=== PATIENT | female | born 1955 | race Two or more races ===

== ENCOUNTER 2023-09-01 08:57 | Outpatient (OUT) | payer MEDICARE, SELFPAY ==
--- NOTE | 2023-09-01 09:02 | MM_ITS ---
Patient Name: ANTOINE MTZ MR#: [id number] : 1955 Exam Date: 09/01/2023 Ordering Doctor: Non-Staff Physician RADIOLOGY REPORT PROCEDURE: MM TOMOSYNTHESIS SCREENING BI COMPARISON: MG MAMM SCREEN 3D JENNY CAD, 08/22/2021. MG MAMM SCREEN 3D JENNY CAD, 08/25/2022. INDICATIONS: Screening Calculator Name NCI Breast Cancer Risk Assessment Tool 5 Year Breast Cancer Risk 2.40% Lifetime Breast Cancer Risk 7.20% Personal Breast Cancer No Personal Ovarian Cancer No Treatments None Family Cancers Sister with breast cancer at age 38; Mother with ovarian cancer at age ~75. LOCATION: [facility] BREAST COMPOSITION: Scattered areas fibroglandular density. FINDINGS: DIAGNOSTIC CATEGORY 2--BENIGN FINDING. NO CHANGE FROM COMPARISON. Scattered benign-appearing nodules are present. Scattered benign-appearing calcifications are present. Scattered benign-appearing lymph nodes are present. RIGHT BREAST: No significant suspicious finding. Stable cluster of microcalcifications lower inner quadrant, right mid breast LEFT BREAST: No significant suspicious finding. RECOMMENDATIONS: ROUTINE MAMMOGRAM AND CLINICAL EVALUATION IN 12 MONTHS. PLEASE NOTE: A NORMAL MAMMOGRAM DOES NOT EXCLUDE THE POSSIBILITY OF BREAST CANCER. A CLINICALLY SUSPICIOUS PALPABLE LUMP SHOULD BE BIOPSIED. Dictated by: Joshua Zavala MD on 09/02/2023 at 07:44 Approved by: Joshua Zavala MD on 09/02/2023 at 07:46
== END 2023-09-01 08:58 | disposition home or self-care (01) ==
LOC: MAMMO 08:57
PROVIDERS: PCP Family Medicine
DX: Z12.31 Encounter for screening mammogram for malignant neoplasm of breast (principal); Z80.3 Family history of malignant neoplasm of breast; Z80.41 Family history of malignant neoplasm of ovary
CPT/HCPCS: 77063; 77067

== ENCOUNTER 2024-02-08 07:04 | Outpatient (OUT) | payer MEDICARE, SELFPAY ==
--- OUTSIDE RECORDS SUMMARY | 2024-02-08 07:08 | XMS_ITS | CCD ---
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 Name Role Phone MARCIA, DR TESS Higgins Admitting Unavailable KENNEDY, DR TESS Higgins Primary Care Unavailable KENNEDY, DR TESS Higgins Attending Unavailable KENNEDY, DR TESS Higgins Primary Care Unavailable REQUEST, DR TRIPP LISTED Admitting Unavaila ble REQUEST, DR TRIPP LISTED Attending Unavaila ble KENNEDY, DR TESS Higgins Admitting Unavailable KENNEDY, DR TESS Higgins Primary Care Unavailable [facility], DR DOMINGA Junior Consulting Unavailable KENNEDY, DR TESS Higgins Attending Unavailable KENNEDY, DR TESS Higgins Consulting Unavailable KENNEDY, DR TESS Higgins Primary Care Unavailable [facility], DR REMBERTO Sullivan Consulting Unavailable MISC, DR SARMIENTO Admitting Unavailable MISC, DR SARMIENTO Attending Unavailable MISC, DR SARMIENTO Consulting Unavailable KENNEDY, DR TESS Higgins Admitting Unavailable WEST, DR REMBERTO Sullivan Consulting Unavailable KENNEDY, DR TESS Higgins Primary Care Unavailable KENNEDY, DR TESS Higgins Attending Unavailable KENNEDY, DR TESS Higgins Consulting Unavailable Medications Current Medications Medication Drug Class(es) Dates Sig (Normalized) Sig (Original) alendronic acid 70 mg oral tablet (1 source) Bisphosphonate Start: 02-02-2024 take 1 tablet by mouth every week Alendronate Active MG PO February 02, 2024 12:00am FreeTextSig: TAKE 1 TABLET ONCE A WEEK; Note: Source Status: Start; Refills: 3; Qty: 12 Tablet; Provider: Marcia Pulido ( ) Completed/Discontinued Medications Medication Drug Class(es) Dates Sig (Normalized) Sig (Original) cyclobenzaprine hydrochloride 10 mg oral tablet (1 source) Muscle Relaxant Start: 02-02-2024 End: 02-03-2024 take 1 tablet by mouth three times daily as needed Cyclobenzaprine Discontinued 1 TAB PO Three times daily February 02, 2024 12:00am February 03, 2024 9:45am FreeTextSi tablet as needed Orally Three times a day; Note: Source Status: Not-Taking\PRN; Refills: 0; Qty: 21 Tablet; Provider: Pravin Cordero Problems Active Problems Problem Classification Problem Date Documented Da te Episodic/Chronic Essential hypertension (2 sources) Hypertensive disorder; Translations: [Essential (primary) hypertension] 02-03-2024 Chronic Osteoporosis (2 sources) Osteoporosis; Translations: [Age-related osteoporosis without current pathological fracture] 02-03-2024 Chronic Other circulatory disease (1 source) Carotid bruit; Translations: [Other specified symptoms and signs involving the circulatory and respiratory systems] 02-03-2024 Episodic Other circulatory disease (1 source) Other specified symptoms and signs involving the circulatory and respiratory systems; Translations: [Other symptoms involving cardiovascular system] 02-03-2024 Episodic Retinal detachments; defects; vascular occlusion; and retinopathy (2 sources) Retinal disorder; 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 Chronic Viral infection (2 sources) Postherpetic neuralgia; Translations: [Other postherpetic nervous system involvement] 02-03-2024 Episodic Past or Other Problems Problem Classification Problem Date Documented Date Episodic/Chronic Other lower respiratory disease (4 sources) Other forms of dyspnea; Translations: [OTHER FORMS OF DYSPNEA] Onset: 07-02-2022 Episodic Other screening for suspected conditions (not mental disorders or infectious disease) (8 sources) Encounter for screening mammogram for malignant neoplasm of breast; Translations: [Abnormal electrocardiogram [ECG] [EKG]] Onset: 07-31-2022 Episodic Residual codes; unclassified (1 source) Family history of malignant neoplasm of breast; Translations: [FAMILY HX MALIG NEOPLASM OF BREAST] Onset: 08-30-2022 Episodic Residual codes; unclassified (1 source) Family history of malignant neoplasm of ovary; Translations: [FAM HX MALIGNANT NEOPLASM OVARY] Onset: 08-30-2022 Episodic Results Test Name Value Interpretation Reference Range Facil ity CBC AUTO DIFFon 03-02-2023 BASO # 0.0 103/ul Normal 0.0-0.[address] [facility] Comment on above: Performed By: #### D ATCBC #### [facility] [address] [place] [address] Dr. Gemma Sanchez Basophils/100 WBC (Bld) 0.6 % Normal 0.2-2.[address] [facility] Comment on above: Performed By: #### D ATCBC #### [facility] [address] [place] [address] Dr. Gemma Sanchez EO # 0.2 103/ul Normal 0.0-0.[address] [facility] Comment on above: Performed By: #### D ATCBC #### [facility] [address] [place] [address] Dr. Gemma Sanchez Eosinophils/100 WBC (Bld) 3.7 % Normal 0.9-7.[address] [facility] Comment on above: Performed By: #### D ATCBC #### [facility] [address] [place] [address] Dr. Gemma Sanchez Erythrocyte distribution width (RBC) [Ratio] 12.5 % Normal 11.0-15.[address] [facility] Comment on above: Performed By: #### D ATCBC #### [facility] [address] [place] [address] Dr. Gemma Sanchez Hematocrit (Bld) [Volume fraction] 41.7 % Normal 36.0-48.[address] [facility] Comment on above: Performed By: #### D ATCBC #### [facility] [address] [place] [address] Dr. Gemma Sanchez Hemoglobin (Bld) [Mass/Vol] 14.1 g/dL Normal 12.0-16.[address] [facility] Comment on above: Performed By: #### D ATCBC #### [facility] [address] [place] [address] Dr. Gemma Sanchez IG # 0.02 10e3/ul Normal 0.00-0.[address] [facility] Comment on above: Performed By: #### D ATCBC #### [facility] [address] [place] [address] Dr. Gemma Sanchez IG % 0.4 % Normal 0.0-0.[address] [facility] Comment on above: Performed By: #### D ATCBC #### [facility] [address] [place] [address] Dr. Gemma Sanchez LYMPH # 1.3 103/ul Normal 1.2-3.8 [facility] Comment on above: Performed By: #### D ATCBC #### [facility] [address] [place] [address] Dr. Gemma Sanchez Lymphocytes/100 WBC (Bld) 23.9 % Normal 20.5-60.[address] [facility] Comment on above: Performed By: #### D ATCBC #### [facility] [address] [place] [address] Dr. Gemma Sanchez MCH (RBC) [Entitic mass] 31.5 pg Normal 26.7-34.0 [facility] Comment on above: Performed By: #### D ATCBC #### [facility] [address] [place] [address] Dr. Gemma Sanchez MCHC (RBC) [Mass/Vol] 33.8 g/dL Normal 29.9-35.2 [facility] Comment on above: Performed By: #### D ATCBC #### [facility] [address] [place] [address] Dr. Gemma Sanchez MCV (RBC) [Entitic vol] 93.1 fL Normal 81.0-99.0 [facility] Comment on above: Performed By: #### D ATCBC #### [facility] [address] [place] [address] Dr. Gemma Sanchez MONO # 0.3 103/ul Normal 0.3-0.8 [facility] Comment on above: Performed By: #### D ATCBC #### [facility] [address] [place] [address] Dr. Gemma Sanchez Monocytes/100 WBC (Bld) 6.2 % Normal 1.7-12.0 [facility] Comment on above: Performed By: #### D ATCBC #### [facility] [address] [place] [address] Dr. Gemma Sanchez NEUT # 3.5 103/ul Normal 1.4-6.5 [facility] Comment on above: Performed By: #### D ATCBC #### [facility] [address] [place] [address] Dr. Gemma Sanchez Neutrophils/100 WBC (Bld) 65.2 % Normal 43.0-75.[address] [facility] Comment on above: Performed By: #### D ATCBC #### [facility] [address] [place] [address] Dr. Gemma Sanchez Platelet mean volume (Bld) [Entitic vol] 8.9 fL Critically low 9.5-13.[address] [facility] Comment on above: Performed By: #### D ATCBC #### [facility] [address] [place] [address] Dr. Gemma Sanchez PLT 245 103/ul Normal 150-[address] [facility] Comment on above: Performed By: #### D ATCBC #### [facility] [address] [place] [address] Dr. Gemma Sanchez RBC 4.48 106/ul Normal 4.20-5.[address] [facility] Comment on above: Performed By: #### D ATCBC #### [facility] [address] [place] [address] Dr. Gemma Sanchez WBC 5.4 103/ul Normal 4.0-11.[address] [facility] Comment on above: Performed By: #### D ATCBC #### [facility] [address] [place] [address] Dr. Gemma Sanchez BUTCH- BMP WITH LIPIDon 2022 Anion gap [Moles/Vol] 14.7 mmol/L Normal [facility] Comment on above: Performed By: #### D ATBMP #### [facility] [address] [place] [address] Dr. Gemma Sanchez Calcium [Mass/Vol] 8.6 mg/dL Normal 8.5-10.1 [facility] Comment on above: Performed By: #### D ATBMP #### [facility] [address] [place] [address] Dr. Gemma Sanchez Chloride [Moles/Vol] 106 mmol/L Normal 98-[address] [facility] Comment on above: Performed By: #### D ATBMP #### [facility] [address] [place] [address] Dr. Gemma Sanchez Cholesterol [Mass/Vol] 207 mg/dL Critically high <=[address] [facility] Comment on above: Performed By: #### D ATBMP #### [facility] [address] [address] [address] Gemma Sanchez Cholesterol in HDL [Mass/Vol] 66 mg/dL Critically high 40-[address] [facility] Comment on above: Performed By: #### D ATBMP #### [facility] [address] [address] [address] Gemma Sanchez Cholesterol in LDL [Mass/Vol] 119.2 mg/dL Normal [facility] Comment on above: Performed By: #### D ATBMP #### [facility] [address] [address] [address] Gemma Sanchez CO2 [Moles/Vol] 26.4 mmol/L Normal 21.0-32.0 [facility] Comment on above: Performed By: #### D ATBMP #### [facility] [address] [address] [address] Gemma Sanchez Creatinine [Mass/Vol] 0.75 mg/dL Normal 0.55-1.[address] [facility] Comment on above: Performed By: #### D ATBMP #### [facility] [address] [address] [address] Gemma Sanchez EGFR-AF BRUNEIAN >60 Normal >=60 [facility] Comment on above: Performed By: #### D ATBMP #### [facility] [address] [address] [address] Gemma Sanchez EGFR-NON AF BRUNEIAN >60 Normal >=[address] [facility] Comment on above: Performed By: #### D ATBMP #### [facility] [address] [address] [address] Gemma Sanchez Glucose [Mass/Vol] 98 mg/dL Normal 74-106 [facility] Comment on above: Performed By: #### D ATBMP #### [facility] [address] [address] [address] Gemma Sanchez HDL NORMAL > or = 60 mg/dl - LO W CARDIOVASCULAR RISK <40 mg/dl - HIGH CARDIOVASCULAR RISK Normal [facility] Comment on above: Performed By: #### D ATBMP #### [facility] [address] [address] [address] Gemma Sanchez LDL CALC NORMAL SEE BELOW Normal [facility] Comment on above: Result Comment: <100 mg/dl OPTIMAL 100 - 129 mg/dl NEAR OR ABOVE OPTIMAL 130 - 159 mg/dl BORDERLINE HIGH 160 - 189 mg/dl HIGH >190 mg/dl VERY HIGH Performed By: #### D ATBMP #### [facility] [address] [address] [address] Gemma Sanchez Potassium [Moles/Vol] 4.1 mmol/L Normal 3.5-5.[address] [facility] Comment on above: Performed By: #### D ATBMP #### [facility] [address] [address] [address] Gemma Sanchez Sodium [Moles/Vol] 143 mmol/L Normal 136-145 [facility] Comment on above: Performed By: #### D ATBMP #### [facility] [address] [address] [address] Gemma Sanchez Triglyceride [Mass/Vol] 109 mg/dL Normal <=[address] [facility] Comment on above: Performed By: #### D ATBMP #### [facility] [address] [address] [address] Gemma Sanchez Urea nitrogen [Mass/Vol] 15.0 mg/dL Normal 7.0-18.[address] [facility] Comment on above: Performed By: #### D ATBMP #### [facility] [address] [address] [address] Gemma Sanchez Urea nitrogen/Creatinin e [Mass ratio] 20.0 mg/mg Normal [facility] Comment on above: Performed By: #### D ATBMP #### [facility] [address] [address] [address] Gemma Sanchez VLDL CALC 21.8 mg/dL Normal [facility] Comment on above: Performed By: #### D ATBMP #### [facility] [address] [place], [place] [address] Dr. Gemma Sanchez MG MAMM SCREEN 3D JENNY CADon 08-25-2022 MG MAMM SCREEN 3D JENNY CAD Patient: YULISA MTZ Exam Date: 08/25/2022 : 1955 Gender:F Ordering : CM PANTOJA Admission #: [id number] Family : Order #: [id number] CLICK HERE TO VIEW EXAM RADIOLOGY REPORT PROCEDURE: MAMMOGRAM SCREENING 3D BILATERAL CAD COMPARISON: MG MAMM SCREEN JENNY W CAD, 08/21/2020. MG MAMM SCREEN 3D JENNY CAD, 08/22/2021. INDICATIONS: Screening mammography Calculator Name NCI Breast Cancer Risk Assessment Tool 5 Year Breast Cancer Risk 2.30% Lifetime Breast Cancer Risk 7.60% Personal Breast Cancer No Personal Ovarian Cancer No Treatments None Family Cancers Sister with breast cancer at age 38; Mother with ovarian cancer at age 75. LOCATION: [facility] BREAST COMPOSITION: Scattered areas fibroglandular density. FINDINGS: DIAGNOSTIC CATEGORY 2--BENIGN FINDING. NO CHANGE FROM COMPARISON. Scattered benign-appearing calcifications are present. Scattered benign-appearing lymph nodes are present. RIGHT BREAST: No significant suspicious finding. LEFT BREAST: No significant suspicious finding. RECOMMENDATIONS: ROUTINE MAMMOGRAM AND CLINICAL EVALUATION IN 12 MONTHS. PLEASE NOTE: A NORMAL MAMMOGRAM DOES NOT EXCLUDE THE POSSIBILITY OF BREAST CANCER. A CLINICALLY SUSPICIOUS PALPABLE LUMP SHOULD BE BIOPSIED. Dictated by: Remberto Zavala MD on 08/25/2022 at 12:14 Approved by: Remberto Zavala MD on 08/25/2022 at 12:19 Normal [facility] ECHOCARDIO M/2D COMPLETEon 1 ECHOCARDIO M/2D COMPLETE Patient: YULISA MTZ Exam Date: 07/31/2022 : 1955 Gender:F Ordering : DR TESS KENNEDY M.D. Admission #: [id number] Family : Order #: [id number] CLICK HERE TO VIEW EXAM ECHOCARDIOGRAM REPORT PROCEDURE: CARDIO PULMONARY ECHOCARDIO M/2D COMP INDICATIONS: Abnormal EKG COMPARISON: None. DESCRIPTION: COMPLETE ECHOCARDIOGRAM Real-time transthoracic echocardiography with 2D, M-mode, spectral and color flow Doppler performed. QUALITY: Technical quality was good. LEFT VENTRICLE: Normal chamber size. Normal left ventricular wall thickness. Global left ventricular systolic function is normal. LV EF: Calculated left ventricular ejection fraction is 60% DIASTOLIC: Normal diastolic function. ATRIAL SEPTUM: LEFT ATRIUM: Normal chamber size. RIGHT ATRIUM: Normal chamber size. RIGHT VENTRICLE: Normal chamber size. Normal right ventricular systolic function. TRICUSPID VALVE: Normal mobility and thickness. No stenosis with trivial regurgitation. No evidence of pulmonary hypertension. RVSP is 33 mmHg MITRAL VALVE: Normal mobility and thickness. No mitral valve prolapse. No evidence of mitral valve stenosis. There is no mitral annular calcification. Trivial mitral regurgitation. AORTIC VALVE: Normal trileaflet appearance. No visible sclerosis. Normal leaflet mobility. No evidence of aortic valve stenosis. Trivial aortic regurgitation. AORTIC ROOT: Normal diameter and appearance. PULMONIC VALVE: Normal thickness and mobility. No stenosis. Trivial regurgitation. PERICARDIUM: No evidence of pericardial effusion. IVC: Collapses with inspirations. Normal size PLEURA: CONCLUSION: 1. Left ventricular systolic function is normal. LVEF is 60%. 2. Normal right ventricular size and systolic function. 3. Normal diastolic function. 4. No significant valvular dysfunction. 5. Normal right-sided pressures. Adult Echocardiography Procedure Report Left Ventricle LVEDD (3.7 - 5.6 cm): 3.72 cm LVESD (2.2 - 4.0 cm): 2.43 cm LVIVS thickness (0.6 - 1.2 cm): 0.84 cm LVPW thickness (0.5 - 1.0 cm): 0.80 cm e': 0.09 m/s E - e': 7.44 LVOT Max Gradient: 2.93 mm[Hg] Peak Velocity (LVOT): 0.86 m/s Mean Velocity (LVOT): 0.64 m/s LVOT Diameter 1.80 cm Left Ventricular Ejection Fraction: 60% Left Atrium LA Volume Index (2D A2C): 31.58 ml, 31.58 ml Left Atrium Systolic Dimension: 2.97 cm Mitral Valve MV E to A Ratio: 0.77 Mitral Valve A-Wave Peak Velocity: 0.87 m/s Mitral Valve E-Wave Peak Velocity: 0.67 m/s Right Ventricle RV Internal Diastolic Dimension: 3.17 cm Aorta AO Root Diam: 2.99 cm Ascending Ao Diam: 2.69 cm Aortic Valve AoV Area (Peak Malachi): 1.93 cm2, 1.93 cm2 AoV Area (VTI): 1.89 cm2, 1.89 cm2 Peak Velocity(Antegrade Flow): 1.12 m/s Peak Gradient(Antegrade Flow): 5.03 mm[Hg] Mean Velocity(Antegrade Flow): 0.75 m/s Mean Gradient(Antegrade Flow): 2.59 mm[Hg] Velocity Time Integral: 26.13 cm Tricuspid Valve Peak Velocity (Regurgitant Flow): 1.10 m/s, 1.83 m/s, 3.16 m/s, 2.75 m/s Peak Velocity: 0.62 m/s Pulmonic Valve Mean Gradient: 2.83 mm[Hg], 2.89 mm[Hg] Mean Velocity: 0.78 m/s, 0.79 m/s Peak Velocity: 1.15 m/s, 1.22 m/s Peak Gradient: 5.31 mm[Hg], 5.92 mm[Hg] Right Atrium Right Atrium Systolic Pressure: 37.25 ml, 37.25 ml Dictated by: Kyle Jack M.D. on 07/31/2022 at 20:43 Approved by: Kyle Jack M.D. on 07/31/2022 at 20:[address] [facility] NM STRESS/REST MULTIon 07-31 NM STRESS/REST MULTI Patient: YULISA MTZ Exam Date: 07/31/2022 : 1955 Gender:F Ordering : DR TESS KENNEDY M.D. Admission #: [id number] Family : Order #: [id number] CLICK HERE TO VIEW EXAM RADIOLOGY REPORT PROCEDURE: RADIONUCLIDE IMAGING STRESS/REST MULTI COMPARISON: None. INDICATIONS: Cardiovascular stress test abnormal TECHNIQUE: Exam Description: Stress/Rest one day protocol gated SPECT Rest Imagin.2 mCi Tc-99m Cardiolite IV on 07/31/2022 Stress Imaging 32.4 mCi Tc-99m Cardiolite IV on 07/31/2022 Exercise Protocol: 0.4 mg Lexiscan given IV Heart Rate (bpm): Rest: 59 Max: 100 PMHR: 65 Blood Pressure: Rest: 126/84 Max: 142/80 Symptoms: Rest and peak stress ECG findings were normal and the exercise portion of the study was normal per attending physician Dr. Albino Sung . For more details please see separate cardiac stress test report. FINDINGS: QUALITY OF STUDY: Good. PERFUSION DEFECT: None. LOCATION: N/A SIZE: N/A. SEVERITY: N/A. TYPE: N/A. WALL MOTION: Normal. LV SIZE: Normal. 48 mL. TID / TCD: None; .88 LVEF: Normal. Calculated EF 80%. SUMMARY: Myocardial perfusion imaging study is NORMAL. CONCLUSION: 1. Normal myocardial perfusion scan 2. Normal exercise test Dictated by: Remberto Zavala MD on 07/31/2022 at 14:39 Approved by: Remberto Zavala MD on 07/31/2022 at 14:[address] [facility] Vital Signs Date Time Vital Sign Value Performing Clinician Faci lity 02-03-2024 09:32-0400 Body height 149.[address] [facility] 02-03-2024 09:32-0400 Body mass index (BMI) [Ratio] 31.7 kg/m2 [facility] 02-03-2024 09:32-0400 Body weight 71.[address] [facility] 02-03-2024 09:32-0400 Diastolic blood pressure 72 mm[Hg] [facility] 02-03-2024 09:32-0400 Heart rate 76 /min [facility] 02-03-2024 09:32-0400 Systolic blood pressure 132 mm[Hg] [facility] Encounters Encounter Date Encounter Type Care Provider Facility Start: 02-03-2024 End: 02-03-2024 ambulatory [facility] Work Phone: Start: 02-03-2024 End: 02-03-2024 Patient encounter procedure [facility] Work Phone: Start: 03-02-2023 End: 03-03-[address] TESS KENNEDY Facility:[facility] Start: 08-25-2022 End: 08-26-[address] TESS KENNEDY Facility:[facility] Start: 07-31-2022 End: 08-01-[address] TESS KENNEDY Facility:[facility] Start: 07-02-2022 End: 07-03-[address] TESS KENNEDY Facility:[facility] Plan of Treatment Date Care Activity Detail Author Comprehensive metabo lic 2000 panel - Serum or Plasma [facility] enter DXA Skeletal system. axial Views for bone density [facility] enter US.doppler Carotid arteries - bilateral [facility] Payers Date Payer Category Payer Medicare [id number] 1960 Self-pay [id number] 1955 Unknown [id number] 1955 Unknown [id number] 1955 Unknown [id number] 1955 Unknown [id number] Private Health Insurance [employer] [id number] Self-pay Self Pay [id number] Unknown [id number] Social History Date Type Detail Facility Start: 01-28-2024 Tobacco smoking stat [facility] Never smoked tobacco (finding) [facility] Start: 1955 Sex Assigned At Female F [facility] Clinical Note 03-02-2023 Note Date & Type Note Facility 03-02-2023 Note PROCEDURE: XR SHOULD ER RT 2V or > HISTORY: Pain of right shoulder joint COMPARISON: None. FINDINGS: BONES:Mild degenerative changes of the acromioclavicular joint. Unremarkable humeral head and glenohumeral joint. SOFT TISSUES:No visible soft tissue swelling. EFFUSION:None visible. OTHER: Negative. IMPRESSION: 1. No acute bone abnormality. 2. Mild degenerative changes of the acromioclavicular joint. Electronically authenticated by: DOMINGA HERNANDES Date: 2023-03-02 07:[address] [facility] Evaluation note Note Date & Type Note Facility Evaluation note Diagnosis Onset Date Carotid bruit acute Hypertension acute Osteoporosis acute Post herpetic neuralgia acut e Retinopathy acute [facility] Work Phone: Summary Purpose Family History Relationship Condition Age at Onset Recorded Date/T emily brother Unknown father Heart disease Unknown Unknown Not Specified Unknown Malignant neoplasm Unknown History of ovarian cancer Unknown sister Malignant neoplasm Unknown Advance Directives Advance Directive Response Recorded Date/ Time Advance Directives No October 22, 2018 9:59am Chief Complaint and Reason for Visit Chief Complaint bp / bs check Reason for Visit Carotid bruit Hypertension Osteoporosis Post herpetic neuralgia Retinopathy Additional Source Comments INFORMATION SOURCE (unrecogn ized section and content) DATE CREATED AUTHOR 03/03/2023 [facility] Care Teams (unrecognized sec tion and content) Team Status: Active Member Role Status Dates Tess Kennedy MD Primary Care Provider Active Team Status: Inactive Member Role Status Dates Tess Kennedy MD Primary Care Provide r, Attending Provider Active Start: February 03, 2024 End: February 03, 2024 Goals (unrecognized section and content) Goals may be documented in a n alternate section FOR RECORDS PERTAINING TO PATIENTS WHO ARE OR HAVE BEEN ENROLLED IN A CHEMICAL DEPENDENCY/SUBSTANCEABUSE PROGRAM, SOME INFORMATION MAY BE OMITTED. This clinical summary was aggregated from multiple sources. Caution should be exercised in using it in the provision of clinical care. This summary normalizes information from multiple sources, and as a consequence, information in this document may materially change the coding, format and clinical context of patient data. In addition, data may be omitted in some cases. CLINICAL DECISIONS SHOULD BE BASED ON THE PRIMARY CLINICAL RECORDS. [employer] provides no warranty or guarantee of the accuracy or completeness of information in this document.
--- NOTE | 2024-02-08 07:14 | US_ITS ---
[address] [address] Patient Name: ANTOINE MTZ MRN: [id number] date: 1955 Sex: F Assigned Patient Location: Current Patient Location: US Accession/Order Number: [id number] Exam Date: 02/08/2024 07:15 Report Date: 02/08/2024 09:20 At the request of: YANIRA MOORE Procedure: US carotid duplex BI EXAMINATION: US carotid duplex BI HISTORY: Carotid Bruit, Retinopathy COMPARISON: No relevant comparison available. TECHNIQUE: Duplex Doppler ultrasound analysis of carotid and vertebral arteries. . Bilateral carotid arterial duplex examination was performed using B-mode, color flow and spectral analysis. Carotid stenosis is reported according to validated velocity parameters, similar to NASCET criteria. FINDINGS: RIGHT CAROTID ARTERY No atherosclerotic plaque Subclavian: PSV: 73.6 cm/s cm/s EDV: 0.0 cm/s cm/s CCA: Prox: PSV: 76.2 cm/s cm/s EDV: 18.0 cm/s cm/s Mid: PSV: 58.1 cm/s cm/s EDV: 14.2 cm/s cm/s Distal: PSV: 59.2 cm/s cm/s EDV: 13.1 cm/s cm/s BULB: PSV: 41.8 cm/s cm/s EDV: 10.4 cm/s cm/s ICA: Prox: PSV: 49.6 cm/s cm/s EDV: 19.1 cm/s cm/s Mid: PSV: 60.3 cm/s cm/s EDV: 24.1 cm/s cm/s Distal: PSV: 79.0 cm/s cm/s EDV: 26.3 cm/s cm/s ECA: PSV: 80.1 cm/s cm/s EDV: 8.7 cm/s cm/s VERTEBRAL: PSV: 54.8 cm/s cm/s EDV: 15.3 cm/s cm/s ICA/CCA ratio: PSV: 1.3 EDV: 2.0 LEFT CAROTID ARTERY no atherosclerotic plaque Subclavian: PSV: 124.0 cm/s cm/s EDV: 0.0 cm/s CCA: Prox: PSV: 64.7 cm/s cm/s EDV: 17.5 cm/s Mid: PSV: 74.6 cm/s cm/s EDV: 20.8 cm/s Distal: PSV: 73.5 cm/s cm/s EDV: 20.8 cm/s BULB: PSV: 55.9 cm/s cm/s EDV: 17.5 cm/s ICA: Prox: PSV: 57.0 cm/s cm/s EDV: 25.2 cm/s Mid: PSV: 106.0 cm/s cm/s EDV: 34.8 cm/s Distal: PSV: 98.4 cm/s cm/s EDV: 32.1 cm/s ECA: PSV: 54.0 cm/s cm/s EDV: 9.5 cm/s VERTEBRAL: PSV: 74.1 cm/s cm/s EDV: 21.7 cm/s ICA/CCA ratio: PSV: 1.4 EDV: 1.7 US/US carotid duplex BI IMPRESSION: 0-49% flow stenosis bilateral internal carotid arteries Spectral Doppler US Thresholds (Reference: Guero EG, et al. Radiology 2000; 214:247-252) Stenosis (%) PSV (cm/sec) VICA/VCCA 0-49 <150 <2.5 50-69 150-225 2.5-4.0 >70 >225 >4.0 Electronically authenticated by: REMBERTO BOTELLO Date: 02/08/2024 09:20
--- NOTE | 2024-02-08 07:14 | XR_ITS ---
[address] [address] Patient Name: ANTOINE MTZ MRN: [id number] date: 1955 Sex: F Assigned Patient Location: Current Patient Location: US Accession/Order Number: [id number] Exam Date: 02/08/2024 07:45 Report Date: 02/08/2024 09:31 At the request of: YANIRA MOORE Procedure: XR DEXA axial skeleton EXAMINATION: XR DEXA axial skeleton, 02/08/2024 7:45 AM EDT HISTORY: Osteoporosis COMPARISON: 2017 TECHNIQUE: Dual-energy X-ray absorptiometry (DEXA) bone density study performed for the axial skeleton. HISTORY: Osteoporosis FINDINGS: Bone mineral density AP spine L1-L4 measures 1.085 g/sq cm. T score -0.8. WHO classification: Normal. Bone mineral density bilateral total femurs measures 0.989 g/sq cm. 3.2% reduction from the prior exam, physiologic. T score -0.1. WHO classification: Normal XR/XR DEXA axial skeleton IMPRESSION: Normal bone mineral density. Low fracture risk Electronically authenticated by: REMBERTO BOTELLO Date: 02/08/2024 09:31
[2024-02-08 07:27] LABS: Basophils Absolute Auto 0.1 10^3/uL (0.0-0.1); Basophils Percent Auto 1.3 % (0.2-2.0); Eosinophils Absolute Auto 0.2 10^3/uL (0.0-0.7); Eosinophils Percent Auto 3.7 % (0.9-7.0); Hematocrit 44.3 % (36.0-48.0); Hemoglobin 14.7 g/dL (12.0-16.0); Immature Granulocytes Abs Auto 0.02 10^3/uL (0.00-0.03); Immature Granulocytes Pct Auto 0.4 % (0.0-0.5); Lymphocytes Absolute Auto 1.8 10^3/uL (1.2-3.8); Lymphocytes Percent Auto 33.5 % (20.5-60.0); Mean Corpuscular HGB Conc 33.2 g/dL (29.9-35.2); Mean Corpuscular Hemoglobin 30.7 pg (26.7-34.0); Mean Corpuscular Volume 92.5 fL (81.0-99.0); Mean Platelet Volume 9.2 fL (9.5-13.5); Monocytes Absolute Auto 0.4 10^3/uL (0.3-0.8); Monocytes Percent Auto 7.7 % (1.7-12.0); Neutrophils Absolute Auto 2.9 10^3/uL (1.4-6.5); Neutrophils Percent Auto 53.4 % (43.0-75.0); Platelet Count 278 10^3/uL (150-450); Red Blood Count 4.79 10^6/uL (4.20-5.40); Red Cell Distribution Width 12.1 % (11.0-15.0); White Blood Count 5.4 10^3/uL (4.0-11.0)
[2024-02-08 08:19] LABS: Estimated Average Glucose 105 mg/dL; Glycohemoglobin A1C 5.3 % (4.5-6.2)
[2024-02-08 08:31] LABS: Alanine Aminotransferase 23 U/L (14-59); Albumin Globulin Ratio 0.9; Albumin Level 3.7 g/dL (3.4-5.0); Alkaline Phosphatase 65 U/L (46-116); Anion Gap 9.7; Aspartate Amino Transferase 21 U/L (15-37); Calcium 9.5 mg/dL (8.5-10.1); Chloride 105 mmol/L (98-107); Chol HDL Ratio 2.9; Cholesterol 244 mg/dL (<=200); Estimated GFR (African America >60 (>=60); Estimated GFR (Non-African Ame >60 (>=60); Globulin 4.1 g/dL; Glucose 96 mg/dL (74-106); HDL Cholesterol 83 mg/dL (40-60); Potassium 3.7 mmol/L (3.5-5.1); Sodium 142 mmol/L (136-145); Total Protein 7.8 g/dL (6.4-8.2); Triglycerides 124 mg/dL (<=150); VLDL CHOLESTEROL 24.8 mg/dL
== END 2024-02-08 07:05 | disposition home or self-care (01) ==
LOC: US 07:04
PROVIDERS: PCP Family Medicine; Visit Provider Family Medicine
DX: M81.0 Age-related osteoporosis without current pathological fracture (principal); H35.00 Unspecified background retinopathy; R09.89 Other specified symptoms and signs involving the circulatory and respiratory systems; I10 Essential (primary) hypertension
CPT/HCPCS: 36415; 77080; 80053; 80061; 83036; 85025; 93880

== ENCOUNTER 2024-09-06 08:27 | Outpatient (OUT) | payer MEDICARE, SELFPAY ==
--- NOTE | 2024-09-06 08:30 | MM_ITS ---
Patient Name: ANTOINE MTZ MR#: [id number] : 1955 Exam Date: 09/06/2024 Ordering Doctor: DR Tess Kennedy M.D. RADIOLOGY REPORT PROCEDURE: MM TOMOSYNTHESIS SCREENING BI COMPARISON: MM TOMOSYNTHESIS SCREENING BI, 09/01/2023. MG MAMM SCREEN 3D JENNY CAD, 08/25/2022. MG MAMM SCREEN 3D JENNY CAD, 08/22/2021. MG MAMM JENNY SCRN W CAD DIG, 05/05/2015. INDICATIONS: Screening Calculator Name NCI Breast Cancer Risk Assessment Tool 5 Year Breast Cancer Risk 2.40% Lifetime Breast Cancer Risk 6.90% Personal Breast Cancer No Personal Ovarian Cancer No Treatments None Family Cancers Sister with breast cancer at age 38; Mother with ovarian cancer at age ~75. LOCATION: [facility] BREAST COMPOSITION: There are scattered areas of fibroglandular density. FINDINGS: DIAGNOSTIC CATEGORY 2--BENIGN FINDING: RIGHT BREAST: No significant suspicious finding. Stable collection of benign-appearing calcifications within upper inner quadrant. Stable biopsy marker clip within upper-outer quadrant. No significant change has occurred. LEFT BREAST: No significant suspicious finding. No significant change has occurred. RECOMMENDATIONS: ROUTINE MAMMOGRAM AND CLINICAL EVALUATION IN 12 MONTHS. PLEASE NOTE: A NORMAL MAMMOGRAM DOES NOT EXCLUDE THE POSSIBILITY OF BREAST CANCER. A CLINICALLY SUSPICIOUS PALPABLE LUMP SHOULD BE BIOPSIED. Dictated by: Bradford Barahona M.D. on 09/06/2024 at 09:32 Approved by: Bradford Barahona M.D. on 09/06/2024 at 09:36
== END 2024-09-06 08:28 | disposition home or self-care (01) ==
LOC: MAMMO 08:27
PROVIDERS: PCP Family Medicine; Visit Provider Family Medicine
DX: Z12.31 Encounter for screening mammogram for malignant neoplasm of breast (principal); Z80.3 Family history of malignant neoplasm of breast; Z80.41 Family history of malignant neoplasm of ovary
CPT/HCPCS: 77063; 77067

== ENCOUNTER 2024-12-28 07:07 | Outpatient (OUT) | payer MEDICARE, SELFPAY ==
--- NOTE | 2024-12-28 | US_ITS ---
The [address] [address] Patient Name: ANTOINE MTZ MRN: [id number] date: 1955 Sex: F Assigned Patient Location: US Current Patient Location: US Accession/Order Number: [id number] Exam Date: 12/28/2024 07:35 Report Date: 12/28/2024 07:37 At the request of: XU PEREZ Procedure: US renal BI BILATERAL RENAL AND BLADDER ULTRASOUND CLINICAL HISTORY: Recurrent UTI N39.0 COMPARISON: None Estimation of renal size is approximately 8.6 cm on the right and 10.4 cm on the left. No shadowing calculi or hydronephrosis are identified. No renal mass lesions were imaged. There is no perinephric fluid. The urinary bladder is partially distended with a volume of 120 mL l. No contour or intraluminal abnormalities are seen. US/US renal BI IMPRESSION: NO OBSTRUCTIVE UROPATHY. Impression dictated by: Marysol Ware M.D.12/28/2024 7:37 AM Dictation Location: [place] [address] Electronically authenticated by: [id number] Y Date: 12/28/2024 07:37
--- OUTSIDE RECORDS SUMMARY | 2024-12-28 07:09 | XMS_ITS | CCD ---
Author Organization [facility] Care Team Providers Care Health Claims Examiner Name Role Phone OSCAR, DR TESS Higgins Admitting Unavailable MOORE, DR TESS Higgins Primary Care Unavailable MOORE, DR TESS Higgins Attending Unavailable MOORE, DR TESS Higgins Primary Care Unavailable REQUEST, DR TRIPP LISTED Admitting Unavaila ble REQUEST, DR TRIPP LISTED Attending Unavaila ble MOORE, DR TESS Higgins Admitting Unavailable MOORE, DR TESS Higgins Primary Care Unavailable ZIEBER, DR DOMINGA Junior Consulting Unavailable MOORE, DR TESS Higgins Attending Unavailable MOORE, DR TESS Higgins Consulting Unavailable MOORE, DR TESS Higgins Primary Care Unavailable WEST, DR REMBERTO Sullivan Consulting Unavailable MISC, DR SARMIENTO Admitting Unavailable MISC, DR SARMIENTO Attending Unavailable MISC, DR SARMIENTO Consulting Unavailable MOORE, DR TESS Higgins Admitting Unavailable WEST, DR REMBERTO Sullivan Consulting Unavailable MOORE, DR TESS Higgins Primary Care Unavailable MOORE, DR TESS Higgins Attending Unavailable MOORE, DR TESS Higgins Consulting Unavailable MOORETESS Primary Care Physician Mandi Patton Attending Unavailable Mandi Patton Admitting Unavailable Galea, Mandi Live Attending Unavailable Galea, Mandi Live Attending Unavailable Galea, Mandi Live Attending Unavailable GalMandi sparks Admitting Unavailable XU MABRY Attending Unavailable XU MABRY Admitting Unavailable XU MABRY Attending Unavailable XU MABRY Attending Unavailable XU MABRY Attending Unavailable XU MABRY Admitting Unavailable Allergies Allergy Classification Reported Allergen(s) Allergy Type Date of Onset Reaction(s) Facility (4 sources) No Known Medication Allergies; Translations: [No Known Medication Allergies] Propensity to adverse reactions (disorder) [facility] Repository Medications Current Medications Medication Drug Class(es) Dates Sig (Normalized) Sig (Original) alendronic acid 70 mg oral tablet (11 sources) Bisphosphonate Start: 06-21-2024 Alendronate 70 mg tablet Active 0 .ROUTE .COMPLEX June 21, 2024 12:18pm TAKE 1 TABLET ONCE A WEEK Start: 02-02-2024 End: 06-21-2024 take 1 mg by mouth every week Fosamax 70 mg Tab mg tab (s), Oral, qWeek, Refills(s) 0 Start Date: 06/02/24 Status: Ordered aspirin 81 mg oral capsule (8 sources) Platelet Aggregation Inhibitor, Nonsteroidal Anti-inflammatory Drug Start: 06-02-2024 take 1 mg by mouth every twenty-four hours aspirin 81 mg oral capsule mg cap(s), Oral, q24hr, Refills(s) 0 Start Date: 06/02/24 Status: Ordered calcium citrate 950 mg oral tablet (8 sources) Start: 06-02-2024 take 1 mg by mouth twice daily calcium (as calcium citrate) 200 mg oral tablet mg tab(s), Oral, BID, Refills(s) 0 Start Date: 06/02/24 Status: Ordered Cranberry preparation (2 sources) Non-Standardized Food Allergenic Extract, Non-Standardized Plant Allergenic Extract Start: 12-19-2024 take 1 tablet by mouth once daily Cranberry 1 tab, Oral, Daily Start Date: 12/19/24 Status: Ordered estradiol 0.1 mg/ml vaginal cream (8 sources) Estrogen Start: 06-02-2024 Estrace 0.1 mg/g Cream 1 gm, Vaginal, As Directed, 42.5 gm, Refill(s) 3, apply pea-sized amount to urethra 3x/week for 1 month, then 2x/week for maintenance, [facility], 151, cm, 06/02/24 13:27:00 EDT, Height/Length Dosing, 69, kg, 06/02/24 13:27:00 EDT, Weight Dosing Start Date: 06/02/24 Status: Ordered sulfamethoxazole 800 mg / trimethoprim 160 mg oral tablet (2 sources) Dihydrofolate Reductase Inhibitor Antibacterial, Sulfonamide Antimicrobial Start: 11-21-2024 End: 12-01-2024 Bactrim D.S. 800 mg-160 mg Tab 1 tab(s), Oral, BID for 10 day(s), 20 tab(s), Refill(s) 0, [facility], 151, cm, 11/21/24 8:42:00 EST, Height/Length Dosing, 69, kg, 11/21/24 8:42:00 EST, Weight Dosing Start Date: 11/21/24 Stop Date: 12/01/24 Status: Ordered trospium chloride 20 mg oral tablet (6 sources) Cholinergic Muscarinic Antagonist Start: 09-01-2024 take 1 tablet by mouth once daily trospium 20 mg oral tablet 20 mg = 1 tab(s), Oral, Daily, at nighttime, # 30 tab(s), Refills(s) 4, Pharmacy: [facility], 151, cm, 09/01/24 8:26:00 EST, Height/Length Dosing, 69, kg, 09/01/24 8:26:00 EST, Weight Dosing Start Date: 09/01/24 Status: Ordered Vitamin D (8 sources) Start: 06-02-2024 Vitamin D International_ Unit, Oral, qWeek, Refills(s) 0 Start Date: 06/02/24 Status: Ordered Completed/Discontinued Medications Medication Drug Class(es) Dates Sig (Normalized) Sig (Original) ciprofloxacin 500 mg oral tablet (2 sources) Quinolone Antimicrobial Start: 12-19-2024 take 1 tablet by mouth once daily Cipro 500 mg Tab 500 mg = 1 tab(s), Oral, Daily, Take 1 tablet the day before the procedure and 1 tablet after the procedure, # 2 tab(s), Refills(s) 0, Pharmacy: [facility], 151, cm, 12/19/24 8:40:00 EST, Height/Length Dosing, 69, kg, 12/19/24 8:40:00 EST, Weight Dosing Start Date: 12/19/24 Status: Ordered cyclobenzaprine hydrochloride 10 mg oral tablet (2 sources) Muscle Relaxant Start: 02-02-2024 End: 02-03-2024 take 1 tablet by mouth three times daily as needed Cyclobenzaprine 10 mg tablet Discontinued 1 TAB PO Three times daily February 01, 2024 11:00pm February 03, 2024 8:45am Free[employer]Si tablet as needed Orally Three times a day; Note: Source Status: Not-TakingundefinedP RN; Refills: 0; Qty: 21 Tablet; Provider: Pravin Cordero Problems Active Problems Problem Classification Problem Date Documented Date Episodic/Chronic Disorders of lipid metabolism (8 sources) Hyperlipidemia 06-02-2024 Chronic Essential hypertension (3 sources) Hypertensive disorder; Translations: [Essential (primary) hypertension] 02-03-2024 Chronic Genitourinary symptoms and ill-defined conditions (11 sources) Nocturia; Translations: [Nocturia] Onset: 06-02-2024 Episodic Osteoporosis (3 sources) Osteoporosis; Translations: [Age-related osteoporosis without current pathological fracture] 02-03-2024 Chronic Other circulatory disease (2 sources) Carotid bruit; Translations: [Other specified symptoms and signs involving the circulatory and respiratory systems] 02-03-2024 Episodic Other circulatory disease (1 source) Other specified symptoms and signs involving the circulatory and respiratory systems; Translations: [Other symptoms involving cardiovascular system] 02-03-2024 Episodic Other diseases of bladder and urethra (2 sources) Urethral stricture 12-19-2024 Episodic Other diseases of bladder and urethra (1 source) Male urethral stricture; Translations: [Unspecified urethral stricture, male, unspecified site] Onset: 12-19-2024 Episodic Retinal detachments; defects; vascular occlusion; and retinopathy (3 sources) Retinal disorder; 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 Chronic Urinary tract infections (5 sources) Urinary tract infectious disease; Translations: [Urinary tract infection, site not specified] Onset: 09-01-2024 Episodic Viral infection (3 sources) Postherpetic neuralgia; Translations: [Other postherpetic nervous [...] Results Test Name Value Interpretation Reference Range Asim Roman Urineon 12-21-2024 Bacteria identified Cx Nom (U) Microbiology PROCEDURE: Urine Culture [R1] SOURCE: U CleanCatch BODY SITE: COLLECTED DATE/TIME: 12/19/2024 10:30 EST RECEIVED DATE/TIME: 12/19/2024 18:45 EST START DATE/TIME: 12/19/2024 18:45 EST FREE TEXT SOURCE: XU MABRY PA-C, PA-C, XU Higgins FINAL REPORTS Final Report [] Verified Date/Time: 12/21/2024 08:34 EST >100,000 cfu/ml Klebsiella pneumoniae SUSCEPTIBILITY RESULTS ____ LEGEND: S=Susceptible, N/R=Not Reported, Blank=Data not available, or drug not advisable or tested, I=Intermediate, ESBL=Extended spectrum beta-lactamase, R=Resistant, TFG=Thymidine-dependent strain, OTIS=Beta-lactamase positive, JANES=mcg/m;(mg/L), S*=Predicted susceptible interp, R*=Predicted resistant interp ___ Klepne Antibiotic JANES Dilutn JANES Interp Ampicillin >16 R Ampicillin/ <=8/4 S Sulbactam Aztreonam <=4 S Cefazolin <=2 S Cefepime <=2 S Ceftazidime <=1 S Ceftazidime/ <=8 S Avibactam Ceftriaxone <=1 S Cefuroxime <=4 S Ciprofloxacin <=0.25 S Ertapenem <=0.5 S Gentamicin <=2 S Levofloxacin <=0.5 S Meropenem <=1 S Nitrofurantoin 64 I Piperacillin/ <=8 S Tazobactam Tetracycline <=4 S Tobramycin <=2 S Trimethoprim/ <=2/38 S Sulfa Performing Locations R1: This test was performed at: [facility], [address] [place] [address], [id number]- , [place], Normal [facility] Comment on above: Performed By: #### [id number] #### [facility] [address] [place] [address] Urology Office/Clinic Noteon 12-19-2024 Urology Office/Clinic Note Urology Office/Clinic Note Chief Complaint 1 month follow up HPI Staff 1 month f/u to UTI Last positive urine culture 11/21/24 >100,000 cfu/ml E-coli Treated with Bactrim 800 BID for 10 days BBSQ: 14 Pt is urinating once every 1-2 hours, she is urinating 5 or more times a night. Denies hematuria, denies dysuria. Denies abdominal/flank pain Review of Systems PHQ Score Initial Depression Screen Score: 0 SCORE no fever, chills, malaise, myalgia. no rash/lesions. no chest pain, palpitations, or SOB. no abdominal pain, nausea, vomiting. Physical Exam Vitals & Measurements T: 36.9 ???C(Temporal Artery) HR: 61(Peripheral) RR: 16 BP: 149/79 HT: 59 in HT: 151 cm WT: 69 kg WT: 152.119 lb BMI: 30.26 General: nontoxic, NAD Mouth: moist mucosa Lungs: normal respiratory effort Cardio: regular rate, good distal perfusion Abdomen: nondistended, no suprapubic distention or tenderness, no CVA tenderness Neurologic: Grossly normal Skin: No rashes or suspicious lesions Assessment/Plan 1. Recurrent UTI (N39.0: Urinary tract infection, site not specified) 06/02/24: PVR 25ml. UA today small blood, + nitrates, trace leuks. Cx+ Klebsiella, Keflex x 7d. -start estrogen cream 09/01/24: UA +small hgb, trace leuks. Cx+ E Coli, Bactrim x 7d. -start OTC UTI preventives 11/21/24: Pt forgot about the OTC preventives. Discussed importance again today. Gave printed information on it. Pt will start. UA + nitrites again (also mod hgb, small leuks). Urine cx showed salmeron-S E Coli. Empiric Bactrim x 10d. TODAY: Pt feels odor and nocturia improve while on abx then come right back. UA today +nit again. -Urine Cx. Treat w abx, tx level x 1 week then low dose daily x 1 mo. -We will check KUB & TONIA to rule out stones as contributing factor to UTIs. Will call pt with results. If shows significant stone burden, pt will need appt to discuss tx options. -Will schedule Cysto with possible UD. See #3. Ordered: Body Mass Index (BMI) documented 3008F Current tobacco non-user 1036F Depression Screening Negative 3352F E&M of Est. Patient Moderate 30-39 Min 94797 Influenza immunization status assessed 1030F Medication list documented in medical record 1159F Most recent diastolic blood pressure <80 mm Hg 3078F Most recent systolic blood pressure >= 140 mm Hg 3077F Patient screen for fall risk: no falls in last year or 1 fall with no injury in last year 1101F Review of all meds by a prescribing practitioner or clinical pharmacist documented in EHR 1160F Urine Culture Urnls Dip Stick Auto w/o Microscopy POC 04769 US Renal XR Abdomen 1 View 2. Nocturia (R35.1: Nocturia) 06/02/24: BBSQ 19. noct x4-5 Pt reports during the day she has no problem, urinates about ever 3-4 hours, denies leakage. Pt reports drinking a lot of water throughout the day and sometimes will drink in the evenings up until bedtime. Pt denies bladder irritants. Advised pt to hold fluids at least 3-4 hours before bedtime to avoid contributing to nocturia. Pt denies weak stream or gross hematuria. Pt denies lower extremity swelling, DM or constipation. Pt reports that she sleeps alone so she is not sure if she has sleep apnea, but she notes the urge to void wakes her up. Advised pt to consider speaking with her PCP regarding NAVIN screening as this may be contributing to nocturia. -start estrogen cream -limit fluids before bed 09/01/24: nocturia continues. -add Trospium 20mg qhs 11/21/24: Pt has been taking the Trospium but feels the efficacy fluctuates. Sometimes feels it's helping a lot, other times feels like it's not helping at all. No intolerable side effects. Explained that she appears to be infected again, and since her only sx is odor, not sure how long she's been infected. Could certainly be worsening the nocturia. TODAY: Nocturia continues to fluctuate. BBSQ 14. See #1 and #3. 3. Urethral stricture (N35.919: Unspecified urethral stricture, male, unspecified site) 09/03/15 cysto/UD (DLS) - urethral stricture Discussed may have recurred. Will schedule Cysto with possible UD. The procedure risks, benefits, details, and treatment alternatives have been discussed with the patient. These include bleeding, infection, recurrent scar in over 50%, need for repeat dilation or other procedures, no symptom relief with dilation, among others. Full informed consent has been obtained. Will order Local anesthesia. Abx sent. Orders: ciprofloxacin, 500 mg = 1 tab(s), Oral, Daily, Take 1 tablet the day before the procedure and 1 tablet after the procedure, # 2 tab(s), Refills(s) 0, Pharmacy: [facility], 151, cm, 12/19/24 8:40:00 EST, Height/Length Dosing, 69, kg, 12/19/24 8:40:00... Follow-up With When Contact Information [facility] [address] [place] [address] Business (1) Additional Instructions: our flight crew scheduler will be contacting you for follow-up Patient E (more content not included)... Normal [facility] Comment on above: Result Comment: Elec tronically Signed By: RAGHAVENDRA PAXU Zapata\.br\Date and Time Signed: 12/19/24 16:24 EST C Urineon 11-23-2024 Bacteria identified Cx Nom (U) Microbiology PROCEDURE: Urine Culture [R1] SOURCE: U CleanCatch BODY SITE: COLLECTED DATE/TIME: 11/21/2024 10:33 EST RECEIVED DATE/TIME: 11/21/2024 17:26 EST START DATE/TIME: 11/21/2024 17:26 EST FREE TEXT SOURCE: XU MABRY PA-C, PA-C, JENNIFER E FINAL REPORTS Final Report [] Verified Date/Time: 11/23/2024 11:00 EST >100,000 cfu/ml Escherichia coli SUSCEPTIBILITY RESULTS ____ LEGEND: S=Susceptible, N/R=Not Reported, Blank=Data not available, or drug not advisable or tested, I=Intermediate, ESBL=Extended spectrum beta-lactamase, R=Resistant, TFG=Thymidine-dependent strain, OTIS=Beta-lactamase positive, JANES=mcg/m;(mg/L), S*=Predicted susceptible interp, R*=Predicted resistant interp ___ EC Antibiotic JANES Dilutn JANES Interp Ampicillin <=8 S Ampicillin/ <=8/4 S Sulbactam Aztreonam <=4 S Cefazolin <=2 S Cefepime <=2 S Ceftazidime <=1 S Ceftazidime/ <=8 S Avibactam Ceftriaxone <=1 S Cefuroxime <=4 S Ciprofloxacin <=0.25 S Ertapenem <=0.5 S Gentamicin <=2 S Levofloxacin <=0.5 S Meropenem <=1 S Nitrofurantoin <=32 S Piperacillin/ <=8 S Tazobactam Tetracycline <=4 S Tobramycin <=2 S Trimethoprim/ <=2/38 S Sulfa Performing Locations R1: This test was performed at: [facility], [address] [place] [address], [id number]- , [place], Normal [facility] Comment on above: Performed By: #### [id number] #### [facility] [address] [place] [id number] Ambulatory Visit Summaryon 0 11-21-2024 Ambulatory Visit Summary Ambulatory Visit Summary ANTOINE MTZ :1955 Visit Date:11/21/2024 Ambulatory Visit Instructions Your Diagnosis Nocturia Recurrent UTI Your Care Team Attending Physician - XU MABRY PA-C Primary Care Physician - TESS MOORE MD This Is Your Medications List estradiol topical (Estrace 0.1 mg/g Cream) sulfamethoxazole-trimet hoprim (Bactrim D.S. 800 mg-160 mg Tab) trospium (trospium 20 mg oral tablet) Contact prescribing physician if questions or concerns alendronate (Fosamax 70 mg Tab) aspirin (aspirin 81 mg oral capsule) calcium citrate (calcium (as calcium citrate) 200 mg oral tablet) ergocalciferol (Vitamin D) Procedures Performed Bladder, Breast surgery, Colonoscopy, Cystourethroscopy with dilation of urethral stricture, Hysterectomy. Discharge Vitals Heart Rate (Peripheral) 65 Respiratory Rate 16 Blood Pressure 132/68 Height 151 cm Height 59 in Weight 69 kg Weight 152.119 lb BMI 30.26 What to do next Scheduled Follow-Up Appointments Thursday 8:20 AM EST With: XU MABRY PA-C Where: [facility] [address] [place] [address]- Medications What How Much When Why Instructions New sulfamethoxazole-trimet hoprim (Bactrim D.S. 800 mg-160 mg Tab) 1 Tablets By Mouth 2 times a day Duration: 10 Days Pickup at [facility] Unchanged estradiol topical (Estrace 0.1 mg/ g Cream) 1 Gram Vaginal As Directed Nocturia apply pea-sized amount to urethra 3x/ week for 1 month, then 2x/ week for maintenance Unchanged trospium (trospium 20 mg oral tablet) 1 Tablets By Mouth Every day at nighttime Unchanged alendronate (Fosamax 70 mg Tab) By Mouth Every week Contact prescribing physician if questions or concerns Unchanged aspirin (aspirin 81 mg oral capsule) By Mouth Every 24 hours Contact prescribing physician if questions or concerns Unchanged calcium citrate (calcium (as calcium citrate) 200 mg oral tablet) By Mouth 2 times a day Contact prescribing physician if questions or concerns Unchanged ergocalciferol (Vitamin D) By Mouth Every week Contact prescribing physician if questions or concerns Pharmacy Information [facility]: [address] [place], [place] [id number] [phone] Allergies No Known Medication Allergies Problems Ongoing - Any problem that you are currently receiving treatment for. Hyperlipidemia Nocturia Patient Survey You may receive a survey via text or e-mail asking about your office visit. Please share your experience with us by completing your survey. We appreciate your feedback and thank you for choosing us for your care. Normal [facility] Urology Office/Clinic Noteon 11-21-2024 Urology Office/Clinic Note Urology Office/Clinic Note Chief Complaint Follow up with PVR HPI Staff 69yr old female here for 3mo f/u with PVR. Previous Dx: nocturia, recurrent uti started trospium 20mg qhs at last OV, feels like it's hit or miss that it helps also was to start OTC preventatives (cranberry pills, probiotic, D-mannose) at last OV, forgot about this still using estrogen cream 2x/wk +odor to urine PVR: 42 ml Dysuria: denies Incomplete bladder emptying: denies Hematuria: denies Frequency: denies Urgency: denies Nocturia: 4 x a night Stream: denies straining, has a steady stream Leaking: denies Post void dripping: denies Wearing pads/ Depends: denies Urge incontinence: denies Stress incontinence: denies Incontinence without Sensory Awareness: denies Abdominal pain: denies Flank pain: denies Sexual complaints: _ Review of Systems PHQ Score Initial Depression Screen Score: 0 SCORE no fever, chills, malaise, myalgia. no rash/lesions. no chest pain, palpitations, or SOB. no abdominal pain, nausea, vomiting. Physical Exam Vitals & Measurements HR: 65(Peripheral) RR: 16 BP: 132/68 HT: 59 in HT: 151 cm WT: 69 kg WT: 152.119 lb BMI: 30.26 General: nontoxic, NAD Mouth: moist mucosa Lungs: normal respiratory effort Cardio: regular rate, good distal perfusion Abdomen: nondistended, no suprapubic distention or tenderness, no CVA tenderness Neurologic: Grossly normal Skin: No rashes or suspicious lesions Assessment/Plan 09/03/15 cysto/UD (DLS) - urethral stricture 1. Nocturia (R35.1: Nocturia) 06/02/24: BBSQ 19. noct x4-5 Pt reports during the day she has no problem, urinates about ever 3-4 hours, denies leakage. Pt reports drinking a lot of water throughout the day and sometimes will drink in the evenings up until bedtime. Pt denies bladder irritants. Advised pt to hold fluids at least 3-4 hours before bedtime to avoid contributing to nocturia. Pt denies weak stream or gross hematuria. Pt denies lower extremity swelling, DM or constipation. Pt reports that she sleeps alone so she is not sure if she has sleep apnea, but she notes the urge to void wakes her up. Advised pt to consider speaking with her PCP regarding NAVIN screening as this may be contributing to nocturia. -start estrogen cream -limit fluids before bed 09/01/24: nocturia continues. -add Trospium 20mg qhs TODAY: Pt has been taking the Trospium but feels the efficacy fluctuates. Sometimes feels it's helping a lot, other times feels like it's not helping at all. No intolerable side effects. Explained that she appears to be infected again, and since her only sx is odor, not sure how long she's been infected. Could certainly be worsening the nocturia. See #2. Once infections under control, can reassess nocturia. Ordered: E&M of Est. Patient Moderate 30-39 Min 83045 Urnls Dip Stick Auto w/o Microscopy POC 86512 2. Recurrent UTI (N39.0: Urinary tract infection, site not specified) 06/02/24: PVR 25ml. UA today small blood, + nitrates, trace leuks. Cx+ Klebsiella, Keflex x 7d. -start estrogen cream 09/01/24: UA +small hgb, trace leuks. Cx+ E Coli, Bactrim x 7d. -start OTC UTI preventives TODAY: Pt forgot about the OTC preventives. Discussed importance again today. Gave printed information on it. Pt will start. UA + nitrites again (also mod hgb, small leuks). Urine cx. Empiric Bactrim x 10d. Recheck UA within 1 mo to ensure infection completely gone. Ordered: 77619 Measure Post Void residual urine and/or bladder capacity by US- non-imaging E&M of Est. Patient Moderate 30-39 Min 49349 Orders: sulfamethoxazole-trimet hoprim, 1 tab(s), Oral, BID for 10 day(s), 20 tab(s), Refill(s) 0, [facility], 151, cm, 11/21/24 8:42:00 EST, Height/Length Dosing, 69, kg, 11/21/24 8:42:00 EST, Weight Dosing Follow-up With When Contact Information RAGHAVENDRA VERDE, XU Higgins, URL In 1 month [address] [place] [address] Additional Instructions: Patient Education Urinary Frequency, Adult Problem List/Past Medical History Ongoing Hyperlipidemia Nocturia Historical No qualifying data Procedure/Surgical History Bladder, Breast surgery, Colonoscopy, Cystourethroscopy with dilation of urethral stricture, Hysterectomy. Medications aspirin 81 mg oral capsule, Oral, q24hr Bactrim D.S. 800 mg-160 mg Tab, 1 tab(s), Oral, BID calcium (as calcium citrate) 200 mg oral tablet, Oral, BID Estrace 0.1 mg/g Cream, 1 gm, Vaginal, As Directed, 3 refills Fosamax 70 mg Tab, Oral, qWeek trospium 20 mg oral tablet, 20 mg= 1 tab(s), Oral, Daily, 4 refills Vitamin D, Oral, qWeek Allergies No Known Medication Allergies Social History Alcohol Never., 08/29/2024 Substance Abuse Never., 08/29/2024 Tobacco Never (less than 100 in lifetime) Tobacco Use:. Never Smokeless Tobacco Use:., 11/21/2024 Family History Arthritis: Sister. Heart disease: Father and Sister. Liver diseas (more content not included)... Normal [facility] Comment on above: Result Comment: Elec tronically Signed By: XU MABRY PA-C.chiara\Date and Time Signed: 11/21/24 09:35 EST Reminderson 09-09-2024 Reminders Reminders From: Laurel Campbell To: EU - Administrative; Sent: 09/09/2024 11:58:48 EST Show up: 09/09/2024 11:58:00 EST Subject: Ambulatory Reminder Due Date/Time: 12/03/2024 11:58:00 EST Reminder/Recall Patient needs scheduled for a 3 m F/U with PVR, due back in with an MARCELINO in November [facility] C Urineon 09-03-2024 Bacteria identified Cx Nom (U) Microbiology PROCEDURE: Urine Culture [R1] SOURCE: U Random BODY SITE: COLLECTED DATE/TIME: 09/01/2024 09:07 EST RECEIVED DATE/TIME: 09/01/2024 18:10 EST START DATE/TIME: 09/01/2024 18:10 EST FREE TEXT SOURCE: Mandi Salinas Alysha J FINAL REPORTS Final Report [] Verified Date/Time: 09/03/2024 08:58 EST 75,000 cfu/ml Escherichia coli SUSCEPTIBILITY RESULTS ____ LEGEND: S=Susceptible, N/R=Not Reported, Blank=Data not available, or drug not advisable or tested, I=Intermediate, ESBL=Extended spectrum beta-lactamase, R=Resistant, TFG=Thymidine-dependent strain, OTIS=Beta-lactamase positive, JANES=mcg/m;(mg/L), S*=Predicted susceptible interp, R*=Predicted resistant interp ___ EC Antibiotic JANES Dilutn JANES Interp Ampicillin <=8 S Ampicillin/ <=8/4 S Sulbactam Aztreonam <=4 S Cefazolin <=2 S Cefepime <=2 S Ceftazidime <=1 S Ceftazidime/ <=8 S Avibactam Ceftriaxone <=1 S Cefuroxime <=4 S Ciprofloxacin <=0.25 S Ertapenem <=0.5 S Gentamicin <=2 S Levofloxacin <=0.5 S Meropenem <=1 S Nitrofurantoin <=32 S Piperacillin/ <=8 S Tazobactam Tetracycline <=4 S Tobramycin <=2 S Trimethoprim/ <=2/38 S Sulfa Performing Locations R1: This test [facility] performed at: [facility], [address] [place] [address], [phone]- , , [facility] Comment on above: Performed By: #### 2 [id number] #### [facility] [address] [place] [address] Ambulatory Visit Summaryon 11-01-2023 Ambulatory Visit Summary Ambulatory Visit Summary ANTOINE MTZ :1955 Visit Date:09/01/2024 Ambulatory Visit Instructions Your Diagnosis Nocturia Recurrent UTI Your Care Team Attending Physician - Mandi Salinas Primary Care Physician - TESS MOORE MD This Is Your Medications List trospium (trospium 20 mg oral tablet) Contact prescribing physician if questions or concerns alendronate (Fosamax 70 mg Tab) aspirin (aspirin 81 mg oral capsule) calcium citrate (calcium (as calcium citrate) 200 mg oral tablet) ergocalciferol (Vitamin D) estradiol topical (Estrace 0.1 mg/g Cream) Procedures Performed Bladder, Breast surgery, Colonoscopy, Cystourethroscopy with dilation of urethral stricture, Hysterectomy. Discharge Vitals Temperature (Oral) 37 ???C Heart Rate (Peripheral) 60 Respiratory Rate 16 Blood Pressure 133/71 Height 151 cm Height 59 in Weight 69 kg Weight 152.119 lb BMI 30.26 What to do next You Need to Schedule the Following Appointments Follow Up with Mandi Salinas URL When: Within 3 months Comments: w/ PVR Where: Medications What How Much When Why Instructions New trospium (trospium 20 mg oral tablet) 1 Tablets By Mouth Every day Refills: 4 at nighttime Pickup at [facility] Unchanged alendronate (Fosamax 70 mg Tab) By Mouth Every week Contact prescribing physician if questions or concerns Unchanged aspirin (aspirin 81 mg oral capsule) By Mouth Every 24 hours Contact prescribing physician if questions or concerns Unchanged calcium citrate (calcium (as calcium citrate) 200 mg oral tablet) By Mouth 2 times a day Contact prescribing physician if questions or concerns Unchanged ergocalciferol (Vitamin D) By Mouth Every week Contact prescribing physician if questions or concerns Unchanged estradiol topical (Estrace 0.1 mg/ g Cream) 1 Gram Vaginal As Directed Nocturia apply pea-sized amount to urethra 3x/ week for 1 month, then 2x/ week for maintenance Contact prescribing physician if questions or concerns Pharmacy Information [facility]: [address] [place], [place] [id number] [phone] Allergies No Known Medication Allergies Problems Ongoing - Any problem that you are currently receiving treatment for. Hyperlipidemia Nocturia Patient Survey You may receive a survey via text or e-mail asking about your office visit. Please share your experience with us by completing your survey. We appreciate your feedback and thank you for choosing us for your care. Education Materials Urinary Tract Infection, Adult A urinary tract infection (UTI) is an infection of any part of the urinary tract. The urinary tract includes the kidneys, ureters, bladder, and urethra. These organs make, store, and get rid of urine in the body. An upper UTI affects the ureters and kidneys. A lower UTI affects the bladder and urethra. What are the causes? Most urinary tract infections are caused by bacteria in your genital area around your urethra, where urine leaves your body. These bacteria grow and cause inflammation of your urinary tract. What increases the risk? You are more likely to develop this condition if: ??? You have a urinary catheter that stays in place. ??? You are not able to control when you urinate or have a bowel movement (incontinence). ??? You are female and you: ? Use a spermicide or diaphragm for control. ? Have low estrogen levels. ? Are . ??? You have certain genes that increase your risk. ??? You are sexually active. ??? You take antibiotic medicines. ??? You have a condition that causes your flow of urine to slow down, such as: ? An enlarged prostate, if you are male. ? Blockage in your urethra. ? A kidney stone. ? A nerve condition that affects your bladder control (neurogenic bladder). ? Not getting enough to drink, or not urinating often. ??? You have certain medical conditions, such as: ? Diabetes. ? A weak disease-fighting system (immunesystem). ? Sickle cell disease. ? Gout. ? Spinal cord injury. What are the signs or symptoms? Symptoms of this condition include: ??? Needing to urinate right away (urgency). ??? Frequent urination. This may include small amounts of urine each time you urinate. ??? Pain or burning with urination. ??? Blood in the urine. ??? Urine that smells bad or unusual. ??? Trouble urinating. ??? Cloudy urine. ??? Vaginal discharge, if you are female. ??? Pain in the abdomen or the lower back. You may also have: ??? Vomiting or a decreased appetite. ??? Confusion. ??? Irritability or tiredness. ??? A fever or chills. ??? Diarrhea. The first symptom in older adults may be confusion. In some cases, they may not have any symptoms until the infection has worsened. How is this diagnosed? This condit (more content not included)... Normal [facility] Urology Office/Clinic Noteon 09-01-2024 Urology Office/Clinic Note Urology Office/Clinic Note Chief Complaint 3mo f/u HPI Staff 69yr old female pt here for 3mo f/u to nocturia. PVR on 06/02/24 was 25mL. Pt states nocturia has not improved. Also reports at last visit, her urine was sent for culture and it was infected. She completed course of Cephalexin mg. Pt thinks she might have UTI again. Previous Dx: nocturia, abnormal urinalysis Cysto/UD - 09/03/15 *estrace cream 0.1mg/g 2x per week - does not think it helps, unsure if she wants to continue using, says if amount needs increased she will try it Dysuria: last week pt states she had a burning sensation, pt tried cranberry juice which improved symptoms; now pt has c/o odor. Incomplete bladder emptying: denies Hematuria: denies Frequency: about 4x per day, pt denies going frequently, says at work she can go 5hrs without urinating Urgency: denies during the day, but at night has urgency Nocturia: 3-5x per night Stream: good stream Leaking: denies Post void dripping: yes, just small amounts Wearing pads/ Depends: wears a pad to work just in case Urge incontinence: denies Stress incontinence: denies Incontinence without Sensory Awareness: denies Abdominal pain: denies Flank pain: denies History of Present Illness Staff HPI reviewed and agree. Review of Systems PHQ Score Initial Depression Screen Score: 0 SCORE no fever, chills, malaise, myalgia. no rash/lesions. no chest pain, palpitations, or SOB. no abdominal pain, nausea, vomiting. no unilateral calf swelling, redness, pain Physical Exam Vitals & Measurements T: 37 ???C(Oral) HR: 60(Peripheral) RR: 16 BP: 133/71 HT: 59 in HT: 151 cm WT: 69 kg WT: 152.119 lb BMI: 30.26 General: nontoxic, well-nourished, appears stated age Mouth: moist mucosa Lungs: normal respiratory effort Cardio: regular rate, good distal perfusion Abdomen: nondistended, no suprapubic distention or tenderness, no CVA tenderness Neurologic: Grossly normal Skin: No rashes or suspicious lesions Assessment/Plan 1. Nocturia (R35.1: Nocturia) 09/03/15 cysto/UD (DLS) - urethral stricture UA today small blood, trace leuks PVR at previous visit 25ml BBSQ 22(19) Pt here for follow up to starting estrogen cream for nocturia. Pt continue to reports bothersome nocturia, getting up 4-5 times nightly. Pt denies bothersome symptoms during the day. Pt has been limiting her fluids prior to HS. Discussed options with patient, pt would like to trial anticholinergic at HS. Discussed SEs, advised pt to call our office if bothersome symptoms occur or med cost-prohibitive. Discussed Myrbetriq/Gemtesa with patient but she would like to trial IR pill as she does not have bothersome symptoms during the day. -Start Trospium 20mg @ HS -Avoid fluids 3-4 hours prior to bedtime -Timed voiding -F/U 3 months w/ PVR Ordered: Body Mass Index (BMI) documented 3008F Current tobacco non-user 1036F Depression Screening Negative 3352F E&M of Est. Patient Moderate 30-39 Min 72108 Influenza immunization status assessed 1030F Medication list documented in medical record 1159F Most recent diastolic blood pressure <80 mm Hg 3078F Patient screen for fall risk: no falls in last year or 1 fall with no injury in last year 1101F Review of all meds by a prescribing practitioner or clinical pharmacist documented in EHR 1160F Systolic BP 130-139 mm Hg (Most Recent) 3075F Urine Culture Urnls Dip Stick Auto w/o Microscopy POC 42972 2. Recurrent UTI (N39.0: Urinary tract infection, site not specified) 06/02/24 cx - >100k Klebsiella pneumoniae, treated with Keflex 500mg BID x7 days UA today small blood, trace leuks Pt reports for the past few weeks she has had a strong odor to her urine and intermittent dysuria Advised pt that infection could still be contributing to her nocturia. Pt denies weak stream. Advised pt to greatly increase fluid intake and call our office for symptoms of UTI. Also discussed starting OTC preventatives and staying on estrogen cream 2x weekly for UTI prevention, pt agreeable. -Send urine for cx, treat if positive -Start OTC preventatives (cranberry pills, probiotic, D-mannose) -Continue estrogen cream 2x weekly -See #1 Ordered: E&M of Est. Patient Moderate 30-39 Min 77873 Orders: trospium, 20 mg = 1 tab(s), Oral, Daily, at nighttime, # 30 tab(s), Refills(s) 4, Pharmacy: [facility], 151, cm, 09/01/24 8:26:00 EST, Height/Length Dosing, 69, kg, 09/01/24 8:26:00 EST, Weight Dosing Follow-up With When Contact Information Mandi Salinas, URL Within 3 months Additional Instructions: w/ PVR Patient Education Urinary Tract Infection, Adult Problem List/Past Medical History Ongoing Hyperlipidemia Nocturia Historical No qualifying data Procedure/Surgical History Bladder, Breast surgery, Colonoscopy, Cystourethroscopy with dilation of urethral stricture, Hysterectomy. Medications aspirin 81 mg oral capsule, Oral, q24hr calcium (as c (more content not included)... Normal [facility] Comment on above: Result Comment: Elec tronically Signed By: Mandi Salinas\.br\Date and Time Signed: 09/01/24 08:57 EST C Urineon 06-04-2024 Bacteria identified Cx Nom (U) Microbiology PROCEDURE: Urine Culture [R1] SOURCE: U CleanCatch BODY SITE: COLLECTED DATE/TIME: 06/02/2024 14:01 EDT RECEIVED DATE/TIME: 06/02/2024 17:49 EDT START DATE/TIME: 06/02/2024 17:49 EDT FREE TEXT SOURCE: Mandi Salinas Alysha J FINAL REPORTS Final Report [] Verified Date/Time: 06/04/2024 10:32 EDT >100,000 cfu/ml Klebsiella pneumoniae SUSCEPTIBILITY RESULTS ____ LEGEND: S=Susceptible, N/R=Not Reported, Blank=Data not available, or drug not advisable or tested, I=Intermediate, ESBL=Extended spectrum beta-lactamase, R=Resistant, TFG=Thymidine-dependent strain, OTIS=Beta-lactamase positive, JANES=mcg/m;(mg/L), S*=Predicted susceptible interp, R*=Predicted resistant interp ___ Klepne Antibiotic JANES Dilutn JANES Interp Ampicillin <=8 R* Ampicillin/ <=8/4 S Sulbactam Aztreonam <=4 S Cefazolin <=2 S Cefepime <=2 S Ceftazidime <=1 S Ceftazidime/ <=8 S Avibactam Ceftriaxone <=1 S Cefuroxime <=4 S Ciprofloxacin <=0.25 S Ertapenem <=0.5 S Gentamicin <=2 S Levofloxacin <=0.5 S Meropenem <=1 S Nitrofurantoin <=32 S Piperacillin/ <=8 S Tazobactam Tetracycline <=4 S Tobramycin <=2 S Trimethoprim/ <=2/38 S Sulfa Performing Locations R1: This test was performed at: [facility], [address] [place] [address], [phone]- , , [facility] Comment on above: Performed By: #### 2 [id number] #### [facility] [address] [place] [address] Ambulatory Visit Summaryon 0 06-02-2024 Ambulatory Visit Summary Ambulatory Visit Summary ANTOINE MTZ :1955 Visit Date:06/02/2024 Ambulatory Visit Instructions Your Diagnosis Nocturia Abnormal urinalysis Your Care Team Attending Physician - Mandi Salinas Primary Care Physician - TESS MOORE MD This Is Your Medications List estradiol topical (Estrace 0.1 mg/g Cream) Contact prescribing physician if questions or concerns alendronate (Fosamax 70 mg Tab) aspirin (aspirin 81 mg oral capsule) calcium citrate (calcium (as calcium citrate) 200 mg oral tablet) ergocalciferol (Vitamin D) Procedures Performed Bladder, Breast surgery, Colonoscopy, Cystourethroscopy with dilation of urethral stricture, Hysterectomy. Discharge Vitals Temperature (Temporal Artery) 36 ?C Heart Rate (Peripheral) 64 Blood Pressure 128/68 Height 151 cm Height 59 in Weight 69 kg Weight 151.8 lb BMI 30.26 What to do next Scheduled Follow-Up Appointments 2023 8:00 AM EST With: Mandi Salinas Where: [facility] [id number]- You Need to Schedule the Following Appointments Follow Up with Mandi Salinas, JONATHAN When: Within 3 months Where: Medications What How Much When Why Instructions New estradiol topical (Estrace 0.1 mg/ g Cream) 1 Gram Vaginal As Directed Nocturia Refills: 3 apply pea-sized amount to urethra 3x/ week for 1 month, then 2x/ week for maintenance Pickup at [facility] Unchanged alendronate (Fosamax 70 mg Tab) By Mouth Every week Contact prescribing physician if questions or concerns Unchanged aspirin (aspirin 81 mg oral capsule) By Mouth Every 24 hours Contact prescribing physician if questions or concerns Unchanged calcium citrate (calcium (as calcium citrate) 200 mg oral tablet) By Mouth 2 times a day Contact prescribing physician if questions or concerns Unchanged ergocalciferol (Vitamin D) By Mouth Every week Contact prescribing physician if questions or concerns Pharmacy Information [facility]: [address] [place], [place] [id number] [phone] Allergies No Known Medication Allergies Problems Ongoing - Any problem that you are currently receiving treatment for. Hyperlipidemia Patient Survey You may receive a survey via text or e-mail asking about your office visit. Please share your experience with us by completing your survey. We appreciate your feedback and thank you for choosing us for your care. Education Materials Urinary Frequency, Adult Urinary frequency means urinating more often than usual. You may urinate every 1?2 hours even though you drink a normal amount of fluid and do not have a bladder infection or condition. Although you urinate more often than normal, the total amount of urine produced in a day is normal. With urinary frequency, you may have an urgent need to urinate often. The stress and anxiety of needing to find a bathroom quickly can make this urge worse. This condition may go away on its own, or you may need treatment at home. Home treatment may include bladder training, exercises, taking medicines, or making changes to your diet. Follow these instructions at home: Bladder health Your health care provider will tell you what to do to improve bladder health. You may be told to: ? Keep a bladder diary. Keep track of: ? What you eat and drink. ? How often you urinate. ? How much you urinate. ? Follow a bladder training program. This may include: ? Learning to delay going to the bathroom. ? Double urinating, also called voiding. This helps if you are not completely emptying your bladder. ? Scheduled voiding. ? Do Kegel exercises. Kegel exercises strengthen the muscles that help control urination, which may help the condition. Eating and drinking Follow instructions from your health care provider about eating or drinking restrictions. You may be told to: ? Avoid caffeine. ? Drink fewer fluids, especially alcohol. ? Avoid drinking in the evening. ? Avoid foods or drinks that may irritate the bladder. These include coffee, tea, soda, artificial sweeteners, citrus, tomato-based foods, and chocolate. ? Eat foods that help prevent or treat constipation. Constipation can make urinary frequency worse. You may need to take these actions to prevent or treat constipation: ? Drink enough fluid to keep your urine pale yellow. ? Take grwr-rlp-juoqpuy or prescription medicines. ? Eat foods that are high in fiber, such as beans, whole grains, and fresh fruits and vegetables. ? Limit foods that are high in fat and processed sugars, such as fried or sweet foods. General instructions ? Take ompw-gmv-bdfxmvh and prescription medicines only as told by your health care provider. ? Keep all follow-up visits. This is important. Contact a he (more content not included)... Normal [facility] Urology Office/Clinic Noteon 06-02-2024 Urology Office/Clinic Note Urology Office/Clinic Note Chief Complaint New Pt here today due to nocturia HPI Staff New Pt here today due to nocturia. Previous DLS Pt. PVR today 25ml. Dysuria: denies pain and burning Incomplete bladder emptying: denies Hematuria: denies visible blood Frequency: every 2-3 hours Urgency: during the night time Nocturia: 5x a night Stream: denies hesitancy Leaking: denies Post void dripping: denies Wearing pads/ Depends: wears pad during the night time Urge incontinence: denies Stress incontinence: denies Incontinence without Sensory Awareness: denies Abdominal pain: denies Flank pain: denies Sexual complaints: _ History of Present Illness Staff HPI reviewed and agree. Review of Systems PHQ Score Initial Depression Screen Score: 0 SCORE no fever, chills, malaise, myalgia. no rash/lesions. no chest pain, palpitations, or SOB. no abdominal pain, nausea, vomiting. no unilateral calf swelling, redness, pain Physical Exam Vitals & Measurements T: 36 ?C(Temporal Artery) HR: 64(Peripheral) BP: 128/68 HT: 59 in HT: 151 cm WT: 69 kg WT: 151.8 lb BMI: 30.26 General: nontoxic, well-nourished, appears stated age Mouth: moist mucosa Lungs: normal respiratory effort Cardio: regular rate, good distal perfusion Abdomen: nondistended, no suprapubic distention or tenderness, no CVA tenderness Neurologic: Grossly normal Skin: No rashes or suspicious lesions Assessment/Plan New pt self-referral for nocturia. Previously seen by DLS. 02/08/24 - A1c 5.3, BUN 12, Cre 0.8, GFR >60 1. Nocturia (R35.1: Nocturia) 09/03/15 cysto/UD (DLS) - urethral stricture UA today small blood, + nitrates, trace leuks PVR today 25ml BBSQ 19 Pt here today to discuss nocturia. Pt reports for the last year or so she has been getting up 4-5 times during the night to urinate. Pt reports during the day she has no problem, urinates about ever 3-4 hours, denies leakage. Pt reports drinking a lot of water throughout the day and sometimes will drink in the evenings up until bedtime. Pt denies bladder irritants. Advised pt to hold fluids at least 3-4 hours before bedtime to avoid contributing to nocturia. Pt denies weak stream or gross hematuria. Pt denies lower extremity swelling, DM or constipation. Pt reports that she sleeps alone so she is not sure if she has sleep apnea, but she notes the urge to void wakes her up. Advised pt to consider speaking with her PCP regarding NAVIN screening as this may be contributing to nocturia. Spoke with patient regarding different options for nocturia. Discussed we could trial an anticholinergic such as Trospium IR @ HS or we could trial estrogen cream to urethra 2x/week. Pt denies history of breast, uterine or ovarian cancers. Pt denies history of blood clots/PE. Pt did have a hysterectomy in 2018 and she was started on estrogen cream post-hysterectomy. Pt reports she has not taken this for a while. Pt denies vaginal atrophy/dryness, she is not sexually active. Advised pt we could restart her estrogen cream to assist with nocturia and post-hysterectomy symptoms. Pt agreeable. -Start estrogen cream 0.1mg/g pea-sized amount to urethra 3x/week x1 month, then 2x/week for maintenance -Avoid fluids 3-4 hours prior to bedtime -Timed voiding -Consult with PCP regarding NAVIN screening -F/U 3 months Ordered: estradiol topical, 1 gm, Vaginal, As Directed, 42.5 gm, Refill(s) 3, apply pea-sized amount to urethra 3x/week for 1 month, then 2x/week for maintenance, [facility], 151, cm, 06/02/24 13:27:00 EDT, Height/Length Dosing, 69, kg, 06/02/24 13:27:00 EDT, Nehemiah... [address] Measure Post Void residual urine and/or bladder capacity by US- non-imaging E&M of New Patient Moderate 45-59 Min 38919 Urine Culture Urnls Dip Stick Auto w/o Microscopy POC 96299 2. Abnormal urinalysis (R82.90: Unspecified abnormal findings in urine) UA today small blood, + nitrates, trace leuks Spoke with patient regarding UA results today, pt denies UTI symptoms. Advised pt that infection could be contributing to her nocturia. Will send for cx and treat if positive. -Send urine for cx, treat if positive -See #1 Ordered: E&M of New Patient Moderate 45-59 Min 61675 Urine Culture Follow-up With When Contact Information Mandi Salinas, URL Within 3 months Additional Instructions: Patient Education Urinary Frequency, Adult Problem List/Past Medical History Ongoing Hyperlipidemia Historical No qualifying data Procedure/Surgical History Bladder, Breast surgery, Colonoscopy, Cystourethroscopy with dilation of urethral stricture, Hysterectomy. Medications aspirin 81 mg oral capsule, Oral, q24hr calcium (as calcium citrate) 200 mg oral tablet, Oral, BID Estrace 0.1 mg/g Cream, 1 gm, Vaginal, As Directed, 3 refills Fosamax 70 mg Tab, Oral, qWeek Vitamin D, Oral, qWeek Allergies No Known Medication Allergies Social History Tobacco Never (less than 100 in lifetime) Tobacc (more content not included)... Normal [facility] Comment on above: Result Comment: Elec tronically Signed By: Mandi Salinas\.br\Date and Time Signed: 06/02/24 14:16 EDT CBC AUTO DIFFon 03-02-2023 BASO # 0.0 103/ul Normal 0.0-0.1 [facility] Comment on above: Performed By: #### D ATCBC #### [facility] [address] [address] [address] Gemma Sanchez Basophils/100 WBC (Bld) 0.6 % Normal 0.2-2.0 [facility] Comment on above: Performed By: #### D ATCBC #### [facility] [address] [address] [address] Gemma Sanchez EO # 0.2 103/ul Normal 0.0-0.7 [facility] Comment on above: Performed By: #### D ATCBC #### [facility] [address] [address] [address] Gemma Sanchez Eosinophils/100 WBC (Bld) 3.7 % Normal 0.9-7.0 [facility] Comment on above: Performed By: #### D ATCBC #### [facility] [address] [place] [address] Dr. Gemma Sanchez Erythrocyte distribution width (RBC) [Ratio] 12.5 % Normal 11.0-15.0 [facility] Comment on above: Performed By: #### D ATCBC #### [facility] [address] [place] [address] Dr. Gemma Sanchez Hematocrit (Bld) [Volume fraction] 41.7 % Normal 36.0-48.0 [facility] Comment on above: Performed By: #### D ATCBC #### [facility] [address] [place] [address] Dr. Gemma Sanchez Hemoglobin (Bld) [Mass/Vol] 14.1 g/dL Normal 12.0-16.0 [facility] Comment on above: Performed By: #### D ATCBC #### [facility] [address] [place] [address] Dr. Gemma Sanchez IG # 0.02 10e3/ul Normal 0.00-0.03 [facility] Comment on above: Performed By: #### D ATCBC #### [facility] [address] [place] [address] Dr. Gemma Sanchez IG % 0.4 % Normal 0.0-0.5 [facility] Comment on above: Performed By: #### D ATCBC #### [facility] [address] [place] [address] Dr. Gemma Sanchez LYMPH # 1.3 103/ul Normal 1.2-3.8 [facility] Comment on above: Performed By: #### D ATCBC #### [facility] [address] [place] [address] Dr. Gemma Sanchez Lymphocytes/100 WBC (Bld) 23.9 % Normal 20.5-60.0 [facility] Comment on above: Performed By: #### D ATCBC #### [facility] [facility] [address] [place] [address] Dr. Gemma Sanchez MCH (RBC) [Entitic mass] 31.5 pg Normal 26.7-34.0 [facility] Comment on above: Performed By: #### D ATCBC #### [facility] [address] [place] [address] Dr. Gemma Sanchez MCHC (RBC) [Mass/Vol] 33.8 g/dL Normal 29.9-35.2 [facility] Comment on above: Performed By: #### D ATCBC #### [facility] [address] [place] [address] Dr. Gemma Sanchez MCV (RBC) [Entitic vol] 93.1 fL Normal 81.0-99.0 [facility] Comment on above: Performed By: #### D ATCBC #### [facility] [address] [place] [address] Dr. Gemma Sanchez MONO # 0.3 103/ul Normal 0.3-0.8 [facility] Comment on above: Performed By: #### D ATCBC #### [facility] [address] [place] [address] Dr. Gemma Sanchez Monocytes/100 WBC (Bld) 6.2 % Normal 1.7-12.0 [facility] Comment on above: Performed By: #### D ATCBC #### [facility] [address] [place] [address] Dr. Gemma Sanchez NEUT # 3.5 103/ul Normal 1.4-6.5 [facility] Comment on above: Performed By: #### D ATCBC #### [facility] [address] [place] [address] Dr. Gemma Sanchez Neutrophils/100 WBC (Bld) 65.2 % Normal 43.0-75.0 [facility] Comment on above: Performed By: #### D ATCBC #### [facility] [address] [place] [address] Dr. Gemma Sanchez Platelet mean volume (Bld) [Entitic vol] 8.9 fL Critically low 9.5-13.5 [facility] Comment on above: Performed By: #### D ATCBC #### [facility] [address] [place] [address] Dr. Gemma Sanchez PLT 245 103/ul Normal 150-450 [facility] Comment on above: Performed By: #### D ATCBC #### [facility] [address] [place] [address] Dr. Gemma Sanchez RBC 4.48 106/ul Normal 4.20-5.40 [facility] Comment on above: Performed By: #### D ATCBC #### [facility] [address] [address] [address] Gemma Sanchez WBC 5.4 103/ul Normal 4.0-11.0 [facility] Comment on above: Performed By: #### D ATCBC #### [facility] [address] [address] [address] Gemma Sanchez BUTCH- BMP WITH LIPIDon 2022 Anion gap [Moles/Vol] 14.7 mmol/L Normal [facility] Comment on above: Performed By: #### D ATBMP #### [facility] [address] [place] [address] Dr. Gemma Sanchez Calcium [Mass/Vol] 8.6 mg/dL Normal 8.5-10.1 [facility] Comment on above: Performed By: #### D ATBMP #### [facility] [address] [place] [address] Dr. Gemma Sanchez Chloride [Moles/Vol] 106 mmol/L Normal 98-107 [facility] Comment on above: Performed By: #### D ATBMP #### [facility] [address] [place] [address] Dr. Gemma Sanchez Cholesterol [Mass/Vol] 207 mg/dL Critically high <=200 [facility] Comment on above: Performed By: #### D ATBMP #### [facility] [address] [place] [address] Dr. Gemma Sanchez Cholesterol in HDL [Mass/Vol] 66 mg/dL Critically high 40-60 [facility] Comment on above: Performed By: #### D ATBMP #### [facility] [address] [place] [address] Dr. Gemma Sanchez Cholesterol in LDL [Mass/Vol] 119.2 mg/dL Normal [facility] Comment on above: Performed By: #### D ATBMP #### [facility] [address] [address] [address] Gemma Sanchez CO2 [Moles/Vol] 26.4 mmol/L Normal 21.0-32.0 [facility] Comment on above: Performed By: #### D ATBMP #### [facility] [address] [address] [address] Gemma Sanchez Creatinine [Mass/Vol] 0.75 mg/dL Normal 0.55-1.02 [facility] Comment on above: Performed By: #### D ATBMP #### [facility] [address] [address] [address] Gemma Sanchez EGFR-AF GREENLANDIC >60 Normal >=60 [facility] Comment on above: Performed By: #### D ATBMP #### [facility] [address] [address] [address] Gemma Sanchez EGFR-NON AF GREENLANDIC >60 Normal >=60 [facility] Comment on above: Performed By: #### D ATBMP #### [facility] [address] [address] [address] Gemma Sanchez Glucose [Mass/Vol] 98 mg/dL Normal 74-106 [facility] Comment on above: Performed By: #### D ATBMP #### [facility] [address] [address] [address] Gemma Sanchez HDL NORMAL > or = 60 mg/dl - LO W CARDIOVASCULAR RISK <40 mg/dl - HIGH CARDIOVASCULAR RISK Normal [facility] Comment on above: Performed By: #### D ATBMP #### [facility] [address] [address] [address] Gemma Sanchez LDL CALC NORMAL SEE BELOW Normal [facility] Comment on above: Result Comment: <100 mg/dl OPTIMAL 100 - 129 mg/dl NEAR OR ABOVE OPTIMAL 130 - 159 mg/dl BORDERLINE HIGH 160 - 189 mg/dl HIGH >190 mg/dl VERY HIGH Performed By: #### D ATBMP #### [facility] [address] [address] [address] Gemma Sanchez Potassium [Moles/Vol] 4.1 mmol/L Normal 3.5-5.1 [facility] Comment on above: Performed By: #### D ATBMP #### [facility] [address] [address] [address] Gemma Sanchez Sodium [Moles/Vol] 143 mmol/L Normal 136-145 [facility] Comment on above: Performed By: #### D ATBMP #### [facility] [address] [address] [address] Gemma Sanchez Triglyceride [Mass/Vol] 109 mg/dL Normal <=150 [facility] Comment on above: Performed By: #### D ATBMP #### [facility] [address] [address] [address] Gemma Sanchez Urea nitrogen [Mass/Vol] 15.0 mg/dL Normal 7.0-18.0 [facility] Comment on above: Performed By: #### D ATBMP #### [facility] [address] [address] [address] Gemma Sanchez Urea nitrogen/Creatinin e [Mass ratio] 20.0 mg/mg Normal [facility] Comment on above: Performed By: #### D ATBMP #### [facility] [address] [address] [address] Gemma Sanchez VLDL CALC 21.8 mg/dL Normal [facility] Comment on above: Performed By: #### D ATP #### [facility] [address] [address] [address] Gemma Sanchez MG MAMM SCREEN 3D JENNY CADon 08-25-2022 MG MAMM SCREEN 3D JENNY CAD Patient: ANTOINE MTZ Exam Date: 08/25/2022 : 1955 Gender:F Ordering : CM PANTOJA Admission #: [id number] Family : Order #: [id number] CLICK HERE TO VIEW EXAM RADIOLOGY REPORT [...] ovarian cancer at age 74. LOCATION: [facility] BREAST COMPOSITION: Scattered areas fibroglandular density. [...] MD on 08/25/2022 at 12:19 Normal [facility] ECHOCARDIO M/2D COMPLETEon 1 ECHOCARDIO M/2D COMPLETE Patient: ANTOINE MTZ Exam Date: 07/31/2022 : 1955 Gender:F Ordering : DR TESS MOORE M.D. Admission #: [id number] Family : Order #: [id number] CLICK HERE TO VIEW EXAM ECHOCARDIOGRAM REPORT [...] Jack M.D. on 07/31/2022 at 20:48 Normal [facility] NM STRESS/REST MULTIon 07-31 NM STRESS/REST MULTI Patient: ANTOINE MTZ Exam Date: 07/31/2022 : 1955 Gender:F Ordering : DR TESS MOORE M.D. Admission #: [id number] Family : Order #: [id number] CLICK HERE TO VIEW EXAM RADIOLOGY REPORT [...] Zavala MD on 07/31/2022 at 14:40 Normal [facility] Vital Signs Date Time Vital Sign Value Performing Clinician Facility 12-19-2024 08:35-0500 Body temperature 98.42 [degF] XU RAGHAVENDRA [facility] 12-19-2024 08:35-0500 Diastolic blood pressure 79 mm[Hg] XU RAGHAVENDRA [facility] 12-19-2024 08:35-0500 Heart rate 61 /min XU RAGHAVENDRA [facility] 12-19-2024 08:35-0500 Respiratory rate 16 /min XU RAGHAVENDRA [facility] 12-19-2024 08:35-0500 Systolic blood pressure 149 mm[Hg] XU RAGHAVENDRA [facility] 12-14-2024 09:31-0500 Body height 149.86 cm [facility] 12-14-2024 09:31-0500 Body mass index (BMI) [Ratio] 29.5 kg/m2 [facility] 12-14-2024 09:31-0500 Body weight 66.22 kg [facility] 12-14-2024 09:31-0500 Diastolic blood pressure 76 mm[Hg] [facility] 12-14-2024 09:31-0500 Heart rate 56 /min [facility] 12-14-2024 09:31-0500 Systolic blood pressure 175 mm[Hg] [facility] 11-21-2024 08:38-0500 Diastolic blood pressure 68 mm[Hg] XU RAGHAVENDRA [facility] 11-21-2024 08:38-0500 Heart rate 65 /min XU RAGHAVENDRA [facility] 11-21-2024 08:38-0500 Respiratory rate 16 /min XU MABRY [facility] 11-21-2024 08:38-0500 Systolic blood pressure 132 mm[Hg] XU MABRY [facility] 09-01-2024 08:07-0500 Blood Pressure Location Mandi Galea [facility] 09-01-2024 08:07-0500 Body temperature 98.6 [degF] Mandi Galea [facility] 09-01-2024 08:07-0500 Diastolic blood pressure 71 mm[Hg] Mandi Galea [facility] 09-01-2024 08:07-0500 Heart rate 60 /min Mandi Galea [facility] 09-01-2024 08:07-0500 Respiratory rate 16 /min Mandi Galea [facility] 09-01-2024 08:07-0500 Systolic blood pressure 133 mm[Hg] Mandi Galea [facility] 06-02-2024 12:49-0400 Blood Pressure Location Mandi Galea [facility] 06-02-2024 12:49-0400 Body temperature 96.8 [degF] Mandi Galea [facility] 06-02-2024 12:49-0400 Diastolic blood pressure 68 mm[Hg] Mandi Galea [facility] 06-02-2024 12:49-0400 Heart rate 64 /min Mandiray Patton [facility] 06-02-2024 12:49-0400 Systolic blood pressure 128 mm[Hg] Mandi Galea [facility] 02-03-2024 09:32-0400 Body height 149.86 cm [facility] 02-03-2024 09:32-0400 Body mass index (BMI) [Ratio] 31.7 kg/m2 [facility] 02-03-2024 09:32-0400 Body weight 71.21 kg [facility] 02-03-2024 09:32-0400 Diastolic blood pressure 72 mm[Hg] [facility] 02-03-2024 09:32-0400 Heart rate 76 /min [facility] 02-03-2024 09:32-0400 Systolic blood pressure 132 mm[Hg] [facility] Encounters Encounter Date Encounter Type Care Provider Facility Start: 12-19-2024 End: 12-19-2024 ambulatory XU MABRY [place] Start: 12-19-2024 End: 12-19-2024 Lab Drop off XU MABRY [facility] Start: 12-19-2024 End: 12-19-2024 ambulatory XU CARROLLRY Facility:[facility] Start: 12-19-2024 End: 12-19-2024 Patient encounter procedure XU MABRY [facility] Start: 12-14-2024 End: 12-14-2024 ambulatory [facility] Work Phone: Start: 12-14-2024 End: 12-14-2024 Patient encounter procedure [facility] Work Phone: Start: 11-21-2024 End: 11-21-2024 ambulatory XURACHEL MABRY [facility] Start: 11-21-2024 End: 11-21-2024 Lab Drop off XURACHEL MABRY [facility] Start: 11-21-2024 End: 11-21-2024 ambulatory XU Ronaldo MABRY Facility:[facility] Start: 11-21-2024 End: 11-21-2024 Patient encounter procedure XU MABRY [facility] Start: 09-01-2024 End: 09-01-2024 ambulatory Mandi J Galea Facility[place] Start: 09-01-2024 End: 09-01-2024 Lab Drop off Mandi J Galea [facility] Start: 09-01-2024 End: 09-01-2024 ambulatory Mandi J Galea Facility:[facility] Start: 09-01-2024 End: 09-01-2024 Patient encounter procedure Mandi J Galea [facility] Start: 06-02-2024 End: 06-02-2024 ambulatory Mandi J Galea Facility[place] Start: 06-02-2024 End: 06-02-2024 Lab Drop off Mandi J Galea [facility] Start: 06-02-2024 End: 06-02-2024 ambulatory Mandi J Galea Facility:[facility] [place] Start: 06-02-2024 End: 06-02-2024 Patient encounter procedure Mandi J Galea [facility] Start: 05-10-2024 ambulatory Mandi Galea Facility:[facility] Start: 02-03-2024 End: 02-03-2024 ambulatory [facility] Work Phone: Start: 02-03-2024 End: 02-03-2024 Patient encounter procedure [facility] Work Phone: Start: 03-02-2023 End: 03-03-[address] TESS MOORE Facility:[facility] Start: 08-25-2022 End: 08-26-[address] TESS MOORE Facility:[facility] Start: 07-31-2022 End: 08-01-[address] TESS MOORE Facility:[facility] Start: 07-02-2022 End: 07-03-[address] TESS MOORE Facility:[facility] Procedures Date Procedure Procedure Detail Performing Clinician Breast surgery (qualifier value) Mandi Galea Colonoscopy Mandi Galea Cystourethroscopy wi th dilation of urethral stricture Mandi Galea Hysterectomy Mandi Galea Urinary bladder stru cture (body structure) Mandi Galea Plan of Treatment Date Care Activity Detail Author Comprehensive metabo lic 2000 panel - Serum or Plasma [facility] enter DXA Skeletal system. axial Views for bone density [facility] enter US.doppler Carotid arteries - bilateral [facility] Immunizations Immunization Date Immunization Notes Care Provider Fa cility 09-02-2022 SARS-CoV-2 (COVID-19 ) [id number] Mandi Galea [facility] 03-11-2022 SARS-CoV-2 mRNA (czrnyqeczsl-npug-umwqb se) vaccine Mandi Galea [facility] 08-18-2021 SARS-CoV-2 (COVID-19 ) mRNA BNT-162b2 vax Mandi Galea [facility] 01-25-2021 SARS-CoV-2 (COVID-19 ) mRNA BNT-162b2 vax Mandi Galea [facility] 01-03-2021 SARS-CoV-2 (COVID-19 ) mRNA BNT-162b2 vax Mandi Galea [facility] 06-21-2019 zoster vaccine recombinant Mandi Galea [facility] 04-10-2019 pneumococcal conjuga te vaccine, 13 valent Mandi Galea [facility] 04-10-2019 zoster vaccine recombinant Mandi Galea [facility] Payers Date Payer Category Payer Medicare [id number] 1960 Self-pay [id number] 1955 Unknown [id number] 1955 Unknown [id number] 1955 Unknown [id number] 1955 Unknown [id number] 1955 Unknown [id number] 1955 Unknown [id number] 1955 Unknown [id number] 1955 Unknown [id number] 1955 Unknown [id number] Private Health Insurance [employer] [id number] Self-pay Self Pay [id number] Unknown [id number] Social History Date Type Detail Facility Start: 01-28-2024 End: 12-19-2024 Tobacco smoking status NHIS Never smoked tobacco (finding) [facility] Start: 1955 Sex Assigned At Female [place] Tobacco smoking status Never [facility] Sex Assigned At Female [facility] Start: 12-14-2024 Sex Female (finding) [facility] Functional Status Date Assessment Result Facility 12-19-2024 Functional Status N/A [facility] 11-21-2024 Functional Status N/A [facility] 09-01-2024 Functional Status N/A [facility] 06-02-2024 Functional Status N/A [facility] Clinical Notes 03-02-2023 to 12-19-2024 Note Date & Type Note Facility 12-19-2024 Hospital Discharge instructions Patient Education 12/19/2024 16:22:38 Antibiotic Medicine, Adult Antibiotic Medicine, Adult Antibiotic medicines are used to treat infections caused by bacteria. These medicines do not work for illnesses caused by viruses. Antibiotics work by killing the bacteria that are making you sick, but they can also have serious side effects. Antibiotics must be used safely and only when needed. When do I need to take antibiotics? You may need antibiotics for: A urinary tract infection (UTI). Strep throat. Bacterial sinus infection. Meningitis. Serious lung infections. Your health care provider may start you on antibiotics while you are waiting for test results. Tests may include a culture of the throat, urine, blood, or mucus. Your health care provider may change or stop your antibiotic depending on your test results. When are antibiotics not needed? You do not need antibiotics for most common illnesses. These illnesses may be caused by a virus, not by bacteria. You do not need antibiotics for: The common cold. The flu (influenza). Sore throat. Discolored mucus. Bronchitis. Antibiotics are not always needed for all infections caused by bacteria. Many of these infections clear up on their own. Do not take antibiotics when they are not needed. How long should I take my antibiotic? You must take the entire amount prescribed to you. Take your antibiotics as told by your health care provider. Do not stop taking your antibiotics even if you start to feel better. If you stop taking them too soon: You may feel sick again. Your infection may get harder to treat. Each course of antibiotics needs a different length of time to work. The length of time may vary from a few days to a few weeks. What if I miss a dose? Try not to miss any doses of medicine. If you miss a dose, call your health care provider or pharmacist for help. Sometimes, it is okay to take the missed dose as soon as possible. Do not take double or extra doses. What are the risks of taking antibiotics? Antibiotics can cause: Allergic reactions. Nausea. Yeast infections. Liver problems. Antibiotics can also cause an infection called Clostridioides difficile (C. difficile or C. diff), which causes severe diarrhea. This infection happens when the antibiotics kill the healthy bacteria in your intestines. This allows C. diff to grow. C. diff needs to be treated right away. Let your health care provider know if: You have diarrhea while taking an antibiotic. You have diarrhea after you stop taking an antibiotic. C. diff infection can start weeks after stopping the antibiotic. Taking an antibiotic also puts you at risk for getting sick in the future with bacteria that do not respond to medicine (antibiotic-resistant infection). Antibiotics can cause bacteria to change so that if the antibiotic is taken again, the medicine cannot kill the bacteria. These infections can be more serious because they are hard, or sometimes impossible, to treat. Do antibiotics affect control? control pills may not work while you are taking antibiotics. If you are taking control pills: Keep taking them as usual. Use a second form of control, such as a condom, to avoid unwanted . Do this for as long as told by your health care provider. What else should I know about taking antibiotics? Take antibiotics exactly as told. Take the correct amount of medicine at the same time each day. Ask your health care provider: ?How long to wait between doses. ?If you should take your antibiotic with food or water. ?If you should avoid certain foods, drinks, or medicines while taking your antibiotics. ?If you need to watch for any side effects. Use only the antibiotics prescribed to you by your health care provider. Do not use antibiotics prescribed for someone else. Drink a large glass of water when taking your antibiotics unless told otherwise. Drink enough fluid to keep your urine pale yellow. Ask your pharmacist for a dosage syringe, cup, or spoon that correctly measures your antibiotics. Ask your pharmacist or health care provider how to safely get rid of leftover medicine. Follow these instructions at home: Take your antibiotics as told by your health care provider. Do not stop taking your antibiotics even if you start to feel better. Return to your normal activities as told by your health care provider. Ask your health care provider what activities are safe for you. Contact a health care provider if: Your symptoms get worse. You have new joint pain or muscle aches that begin after starting your antibiotic. You have side effects from your antibiotic, such as: ?Stomach pain. ?Diarrhea. ?Nausea. ?White patches in your mouth or throat. Get help right away if: You have signs of a severe allergic reaction to antibiotics. If you have any of these signs, stop taking the antibiotic right away. Signs may include: ?Raised, itchy, red bumps on your skin (hives). ?Skin rash. ?Trouble breathing. ?High-pitched whistling sounds when you breathe, most often when you breathe out (wheezing). ?Swelling anywhere on your body. ?Feeling dizzy. ?Vomiting. You have signs of liver problems, such as: ?Dark or blood-colored urine. ?Yellow color to your skin. ?Bruising or bleeding easily. You have severe diarrhea, bloody diarrhea, or stomach cramps. You have a severe headache. These symptoms may be an emergency. Get help right away. Call 911. Do not wait to see if the symptoms will go away. Do not drive yourself to the hospital. This information is not intended to replace advice given to you by your health care provider. Make sure you discuss any questions you have with your health care provider. Document Revised: 05/05/2023 Document Reviewed: 05/05/2023 [employer] Patient Education 2023 [employer]. 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 These medicines do not work for illnesses caused by viruses. Antibiotics work by killing the bacteria that are making you sick, but they can also have serious side effects. Antibiotics must be used safely and only when needed. When do I need to take antibiotics? You may need antibiotics for: ??? A urinary tract infection (UTI). ??? Strep throat. ??? Bacterial sinus infection. ??? Meningitis. ??? Serious lung infections. Your health care provider may start you on antibiotics while you are waiting for test results. Tests may include a culture of the throat, urine, blood, or mucus. Your health care provider may change or stop your antibiotic depending on your test results. When are antibiotics not needed? You do not need antibiotics for most common illnesses. These illnesses may be caused by a virus, not by bacteria. You do not need antibiotics for: ??? The common cold. ??? The flu (influenza). ??? Sore throat. ??? Discolored mucus. ??? Bronchitis. Antibiotics are not always needed for all infections caused by bacteria. Many of these infections clear up on their own. Do not take antibiotics when they are not needed. How long should I take my antibiotic? You must take the entire amount prescribed to you. Take your antibiotics as told by your health care provider. Do not stop taking your antibiotics even if you start to feel better. If you stop taking them too soon: ??? You may feel sick again. ??? Your infection may get harder to treat. Each course of antibiotics needs a different length of time to work. The length of time may vary from a few days to a few weeks. What if I miss a dose? Try not to miss any doses of medicine. If you miss a dose, call your health care provider or pharmacist for help. Sometimes, it is okay to take the missed dose as soon as possible. Do not take double or extra doses. What are the risks of taking antibiotics? Antibiotics can cause: ??? Allergic reactions. ??? Nausea. ??? Yeast infections. ??? Liver problems. Antibiotics can also cause an infection called Clostridioides difficile (C. difficile or C. diff), which causes severe diarrhea. This infection happens when the antibiotics kill the healthy bacteria in your intestines. This allows C. diff to grow. C. diff needs to be treated right away. Let your health care provider know if: ??? You have diarrhea while taking an antibiotic. ??? You have diarrhea after you stop taking an antibiotic. C. diff infection can start weeks after stopping the antibiotic. Taking an antibiotic also puts you at risk for getting sick in the future with bacteria that do not respond to medicine (antibiotic-resistant infection). Antibiotics can cause bacteria to change so that if the antibiotic is taken again, the medicine cannot kill the bacteria. These infections can be more serious because they are hard, or sometimes impossible, to treat. Do antibiotics affect control? control pills may not work while you are taking antibiotics. If you are taking control pills: ??? Keep taking them as usual. ??? Use a second form of control, such as a condom, to avoid unwanted . Do this for as long as told by your health care provider. What else should I know about taking antibiotics? Take antibiotics exactly as told. ??? Take the correct amount of medicine at the same time each day. ??? Ask your health care provider: ? How long to wait between doses. ? If you should take your antibiotic with food or water. ? If you should avoid certain foods, drinks, or medicines while taking your antibiotics. ? If you need to watch for any side effects. ??? Use only the antibiotics prescribed to you by your health care provider. Do not use antibiotics prescribed for someone else. ??? Drink a large glass of water when taking your antibiotics unless told otherwise. Drink enough fluid to keep your urine pale yellow. ??? Ask your pharmacist for a dosage syringe, cup, or spoon that correctly measures your antibiotics. ??? Ask your pharmacist or health care provider how to safely get rid of leftover medicine. Follow these instructions at home: ??? Take your antibiotics as told by your health care provider. Do not stop taking your antibiotics even if you start to feel better. ??? Return to your normal activities as told by your health care provider. Ask your health care provider what activities are safe for you. Contact a health care provider if: ??? Your symptoms get worse. ??? You have new joint pain or muscle aches that begin after starting your antibiotic. ??? You have side effects from your antibiotic, such as: ? Stomach pain. ? Diarrhea. ? Nausea. ? White patches in your mouth or throat. Get help right away if: ??? You have sig (more content not included)... [facility] 12-19-2024 Evaluation + Plan note Diagnostic Tests PendingUrine Culture 12/19/24 [facility] 11-21-2024 Hospital Discharge instructions Patient Education 11/21/2024 09:35:17 Urinary Frequency, Adult Urinary Frequency, Adult Urinary frequency means urinating more often than usual. You may urinate every 1 2 hours even though you drink a normal amount of fluid and do not have a bladder infection or condition. Although you urinate more often than normal, the total amount of urine produced in a day is normal. With urinary frequency, you may have an urgent need to urinate often. The stress and anxiety of needing to find a bathroom quickly can make this urge worse. This condition may go away on its own, or you may need treatment at home. Home treatment may include bladder training, exercises, taking medicines, or making changes to your diet. Follow these instructions at home: Bladder health Your health care provider will tell you what to do to improve bladder health. You may be told to: Keep a bladder diary. Keep track of: ?What you eat and drink. ?How often you urinate. ?How much you urinate. Follow a bladder training program. This may include: ?Learning to delay going to the bathroom. ?Double urinating, also called voiding. This helps if you are not completely emptying your bladder. ?Scheduled voiding. Do Kegel exercises. Kegel exercises strengthen the muscles that help control urination, which may help the condition. Eating and drinking Follow instructions from your health care provider about eating or drinking restrictions. You may be told to: Avoid caffeine. Drink fewer fluids, especially alcohol. Avoid drinking in the evening. Avoid foods or drinks that may irritate the bladder. These include coffee, tea, soda, artificial sweeteners, citrus, tomato-based foods, and chocolate. Eat foods that help prevent or treat constipation. Constipation can make urinary frequency worse. You may need to take these actions to prevent or treat constipation: ?Drink enough fluid to keep your urine pale yellow. ?Take gnmy-dot-ylovugg or prescription medicines. ?Eat foods that are high in fiber, such as beans, whole grains, and fresh fruits and vegetables. ?Limit foods that are high in fat and processed sugars, such as fried or sweet foods. General instructions Take wewi-rhs-owlbldd and prescription medicines only as told by your health care provider. Keep all follow-up visits. This is important. Contact a health care provider if: You start urinating more often. You feel pain or irritation when you urinate. You notice blood in your urine. Your urine looks cloudy. You develop a fever. You begin vomiting. Get help right away if: You are unable to urinate. Summary Urinary frequency means urinating more often than usual. With urinary frequency, you may urinate every 1 2 hours even though you drink a normal amount of fluid and do not have a bladder infection or other bladder condition. Your health care provider may recommend that you keep a bladder diary, follow a bladder training program, or make dietary changes. If told by your health care provider, do Kegel exercises to strengthen the muscles that help control urination. Take oyan-tqx-xxlezii and prescription medicines only as told by your health care provider. Contact a health care provider if your symptoms do not improve or get worse. This information is not intended to replace advice given to you by your health care provider. Make sure you discuss any questions you have with your health care provider. Document Revised: 05/10/2021 Document Reviewed: 05/10/2021 [employer] Patient Education 2023 [email or web address]. Follow Up Care 09/09/2024 13:50:45 With:XU MABRY PA-C, URL Address: [address] [place] [address] When:Within 1 Month(s) [facility] [employer] 11-21-2024 Note Patient Education Urology Urinary Frequency, Adult Urinary frequency means urinating more often than usual. You may urinate every 1?2 hours even though you drink a normal amount of fluid and do not have a bladder infection or condition. Although you urinate more often than normal, the total amount of urine produced in a day is normal. With urinary frequency, you may have an urgent need to urinate often. The stress and anxiety of needing to find a bathroom quickly can make this urge worse. This condition may go away on its own, or you may need treatment at home. Home treatment may include bladder training, exercises, taking medicines, or making changes to your diet. Follow these instructions at home: Bladder health Your health care provider will tell you what to do to improve bladder health. You may be told to: ??? Keep a bladder diary. Keep track of: ? What you eat and drink. ? How often you urinate. ? How much you urinate. ??? Follow a bladder training program. This may include: ? Learning to delay going to the bathroom. ? Double urinating, also called voiding. This helps if you are not completely emptying your bladder. ? Scheduled voiding. ??? Do Kegel exercises. Kegel exercises strengthen the muscles that help control urination, which may help the condition. Eating and drinking Follow instructions from your health care provider about eating or drinking restrictions. You may be told to: ??? Avoid caffeine. ??? Drink fewer fluids, especially alcohol. ??? Avoid drinking in the evening. ??? Avoid foods or drinks that may irritate the bladder. These include coffee, tea, soda, artificial sweeteners, citrus, tomato-based foods, and chocolate. ??? Eat foods that help prevent or treat constipation. Constipation can make urinary frequency worse. You may need to take these actions to prevent or treat constipation: ? Drink enough fluid to keep your urine pale yellow. ? Take afql-lxn-qqycyyj or prescription medicines. ? Eat foods that are high in fiber, such as beans, whole grains, and fresh fruits and vegetables. ? Limit foods that are high in fat and processed sugars, such as fried or sweet foods. General instructions ??? Take vhev-ksh-yobmbsv and prescription medicines only as told by your health care provider. ??? Keep all follow-up visits. This is important. Contact a health care provider if: ??? You start urinating more often. ??? You feel pain or irritation when you urinate. ??? You notice blood in your urine. ??? Your urine looks cloudy. ??? You develop a fever. ??? You begin vomiting. Get help right away if: ??? You are unable to urinate. Summary ??? Urinary frequency means urinating more often than usual. With urinary frequency, you may urinate every 1?2 hours even though you drink a normal amount of fluid and do not have a bladder infection or other bladder condition. ??? Your health care provider may recommend that you keep a bladder diary, follow a bladder training program, or make dietary changes. ??? If told by your health care provider, do Kegel exercises to strengthen the muscles that help control urination. ??? Take wnpe-teb-tcijlfi and prescription medicines only as told by your health care provider. ??? Contact a health care provider if your symptoms do not improve or get worse. This information is not intended to replace advice given to you by your health care provider. Make sure you discuss any questions you have with your health care provider. Document Revised: 05/10/2021 Document Reviewed: 05/10/2021 [employer] Patient Education ? 2023 [email or web address]. [facility] 09-01-2024 Evaluation + Plan note Diagnostic Tests PendingUrine Culture 09/01/24 [facility] 09-01-2024 Hospital Discharge instructions Patient Education 09/01/2024 08:56:27 Urinary Tract Infection, Adult Urinary Tract Infection, Adult A urinary tract infection (UTI) is an infection of any part of the urinary tract. The urinary tract includes the kidneys, ureters, bladder, and urethra. These organs make, store, and get rid of urine in the body. An upper UTI affects the ureters and kidneys. A lower UTI affects the bladder and urethra. What are the causes? Most urinary tract infections are caused by bacteria in your genital area around your urethra, where urine leaves your body. These bacteria grow and cause inflammation of your urinary tract. What increases the risk? You are more likely to develop this condition if: You have a urinary catheter that stays in place. You are not able to control when you urinate or have a bowel movement (incontinence). You are female and you: ?Use a spermicide or diaphragm for control. ?Have low estrogen levels. ?Are . You have certain genes that increase your risk. You are sexually active. You take antibiotic medicines. You have a condition that causes your flow of urine to slow down, such as: ?An enlarged prostate, if you are male. ?Blockage in your urethra. ?A kidney stone. ?A nerve condition that affects your bladder control (neurogenic bladder). ?Not getting enough to drink, or not urinating often. You have certain medical conditions, such as: ?Diabetes. ?A weak disease-fighting system (immunesystem). ?Sickle cell disease. ?Gout. ?Spinal cord injury. What are the signs or symptoms? Symptoms of this condition include: Needing to urinate right away (urgency). Frequent urination. This may include small amounts of urine each time you urinate. Pain or burning with urination. Blood in the urine. Urine that smells bad or unusual. Trouble urinating. Cloudy urine. Vaginal discharge, if you are female. Pain in the abdomen or the lower back. You may also have: Vomiting or a decreased appetite. Confusion. Irritability or tiredness. A fever or chills. Diarrhea. The first symptom in older adults may be confusion. In some cases, they may not have any symptoms until the infection has worsened. How is this diagnosed? This condition is diagnosed based on your medical history and a physical exam. You may also have other tests, including: Urine tests. Blood tests. Tests for STIs (sexually transmitted infections). If you have had more than one UTI, a cystoscopy or imaging studies may be done to determine the cause of the infections. How is this treated? Treatment for this condition includes: Antibiotic medicine. Cpmr-apu-iidbyxl medicines to treat discomfort. Drinking enough water to stay hydrated. If you have frequent infections or have other conditions such as a kidney stone, you may need to see a health care provider who specializes in the urinary tract (urologist). In rare cases, urinary tract infections can cause sepsis. Sepsis is a life-threatening condition that occurs when the body responds to an infection. Sepsis is treated in the hospital with IV antibiotics, fluids, and other medicines. Follow these instructions at home: Medicines Take wjdv-jpf-pqokkmu and prescription medicines only as told by your health care provider. If you were prescribed an antibiotic medicine, take it as told by your health care provider. Do not stop using the antibiotic even if you start to feel better. General instructions Make sure you: ?Empty your bladder often and completely. Do not hold urine for long periods of time. ?Empty your bladder after sex. ?Wipe from front to back after urinating or having a bowel movement if you are female. Use each tissue only one time when you wipe. Drink enough fluid to keep your urine pale yellow. Keep all follow-up visits. This is important. Contact a health care provider if: Your symptoms do not get better after 1 2 days. Your symptoms go away and then return. Get help right away if: You have severe pain in your back or your lower abdomen. You have a fever or chills. You have nausea or vomiting. Summary A urinary tract infection (UTI) is an infection of any part of the urinary tract, which includes the kidneys, ureters, bladder, and urethra. Most urinary tract infections are caused by bacteria in your genital area. Treatment for this condition often includes antibiotic medicines. If you were prescribed an antibiotic medicine, take it as told by your health care provider. Do not stop using the antibiotic even if you start to feel better. Keep all follow-up visits. This is important. This information is not intended to replace advice given to you by your health care provider. Make sure you discuss any questions you have with your health care provider. Document Revised: 05/12/2021 Document Reviewed: 05/17/2021 [employer] Patient Education 2023 [email or web address]. Follow Up Care 06/02/2024 13:54:11 With:Mandi Salinas URL Address: When:3 months Comments:ervin/ FRANTZ [facility] 09-01-2024 Note Patient Education Obstetrics and Gynecology Urinary Tract Infection, Adult A urinary tract infection (UTI) is an infection of any part of the urinary tract. The urinary tract includes the kidneys, ureters, bladder, and urethra. These organs make, store, and get rid of urine in the body. An upper UTI affects the ureters and kidneys. A lower UTI affects the bladder and urethra. What are the causes? Most urinary tract infections are caused by bacteria in your genital area around your urethra, where urine leaves your body. These bacteria grow and cause inflammation of your urinary tract. What increases the risk? You are more likely to develop this condition if: ??? You have a urinary catheter that stays in place. ??? You are not able to control when you urinate or have a bowel movement (incontinence). ??? You are female and you: ? Use a spermicide or diaphragm for control. ? Have low estrogen levels. ? Are . ??? You have certain genes that increase your risk. ??? You are sexually active. ??? You take antibiotic medicines. ??? You have a condition that causes your flow of urine to slow down, such as: ? An enlarged prostate, if you are male. ? Blockage in your urethra. ? A kidney stone. ? A nerve condition that affects your bladder control (neurogenic bladder). ? Not getting enough to drink, or not urinating often. ??? You have certain medical conditions, such as: ? Diabetes. ? A weak disease-fighting system (immunesystem). ? Sickle cell disease. ? Gout. ? Spinal cord injury. What are the signs or symptoms? Symptoms of this condition include: ??? Needing to urinate right away (urgency). ??? Frequent urination. This may include small amounts of urine each time you urinate. ??? Pain or burning with urination. ??? Blood in the urine. ??? Urine that smells bad or unusual. ??? Trouble urinating. ??? Cloudy urine. ??? Vaginal discharge, if you are female. ??? Pain in the abdomen or the lower back. You may also have: ??? Vomiting or a decreased appetite. ??? Confusion. ??? Irritability or tiredness. ??? A fever or chills. ??? Diarrhea. The first symptom in older adults may be confusion. In some cases, they may not have any symptoms until the infection has worsened. How is this diagnosed? This condition is diagnosed based on your medical history and a physical exam. You may also have other tests, including: ??? Urine tests. ??? Blood tests. ??? Tests for STIs (sexually transmitted infections). If you have had more than one UTI, a cystoscopy or imaging studies may be done to determine the cause of the infections. How is this treated? Treatment for this condition includes: ??? Antibiotic medicine. ??? Xuai-crw-kumwodv medicines to treat discomfort. ??? Drinking enough water to stay hydrated. If you have frequent infections or have other conditions such as a kidney stone, you may need to see a health care provider who specializes in the urinary tract (urologist). In rare cases, urinary tract infections can cause sepsis. Sepsis is a life-threatening condition that occurs when the body responds to an infection. Sepsis is treated in the hospital with IV antibiotics, fluids, and other medicines. Follow these instructions at home: Medicines ??? Take ckta-dhy-lzukyrm and prescription medicines only as told by your health care provider. ??? If you were prescribed an antibiotic medicine, take it as told by your health care provider. Do not stop using the antibiotic even if you start to feel better. General instructions ??? Make sure you: ? Empty your bladder often and completely. Do not hold urine for long periods of time. ? Empty your bladder after sex. ? Wipe from front to back after urinating or having a bowel movement if you are female. Use each tissue only one time when you wipe. ??? Drink enough fluid to keep your urine pale yellow. ??? Keep all follow-up visits. This is important. Contact a health care provider if: ??? Your symptoms do not get better after 1?2 days. ??? Your symptoms go away and then return. Get help right away if: ??? You have severe pain in your back or your lower abdomen. ??? You have a fever or chills. ??? You have nausea or vomiting. Summary ??? A urinary tract infection (UTI) is an infection of any part of the urinary tract, which includes the kidneys, ureters, bladder, and urethra. ??? Most urinary tract infections are caused by bacteria in your genital area. ??? Treatment for this condition often includes antibiotic medicines. ??? If you were prescribed an antibiotic medicine, take it as told by your health care provider. Do not stop using the antibiotic even if you start to feel better. ??? Keep all follow-up visits. This is important. This information is not intended to replace advice given to you by your health care provider. Make sure you di (more content not included)... [facility] 06-02-2024 Hospital Discharge instructions Patient Education 06/02/2024 14:15:23 Urinary Frequency, Adult Urinary Frequency, Adult Urinary frequency means urinating more often than usual. You may urinate every 1 2 hours even though you drink a normal amount of fluid and do not have a bladder infection or condition. Although you urinate more often than normal, the total amount of urine produced in a day is normal. With urinary frequency, you may have an urgent need to urinate often. The stress and anxiety of needing to find a bathroom quickly can make this urge worse. This condition may go away on its own, or you may need treatment at home. Home treatment may include bladder training, exercises, taking medicines, or making changes to your diet. Follow these instructions at home: Bladder health Your health care provider will tell you what to do to improve bladder health. You may be told to: Keep a bladder diary. Keep track of: ?What you eat and drink. ?How often you urinate. ?How much you urinate. Follow a bladder training program. This may include: ?Learning to delay going to the bathroom. ?Double urinating, also called voiding. This helps if you are not completely emptying your bladder. ?Scheduled voiding. Do Kegel exercises. Kegel exercises strengthen the muscles that help control urination, which may help the condition. Eating and drinking Follow instructions from your health care provider about eating or drinking restrictions. You may be told to: Avoid caffeine. Drink fewer fluids, especially alcohol. Avoid drinking in the evening. Avoid foods or drinks that may irritate the bladder. These include coffee, tea, soda, artificial sweeteners, citrus, tomato-based foods, and chocolate. Eat foods that help prevent or treat constipation. Constipation can make urinary frequency worse. You may need to take these actions to prevent or treat constipation: ?Drink enough fluid to keep your urine pale yellow. ?Take smqb-rot-dvpiesj or prescription medicines. ?Eat foods that are high in fiber, such as beans, whole grains, and fresh fruits and vegetables. ?Limit foods that are high in fat and processed sugars, such as fried or sweet foods. General instructions Take ubpj-vbz-mzklvmk and prescription medicines only as told by your health care provider. Keep all follow-up visits. This is important. Contact a health care provider if: You start urinating more often. You feel pain or irritation when you urinate. You notice blood in your urine. Your urine looks cloudy. You develop a fever. You begin vomiting. Get help right away if: You are unable to urinate. Summary Urinary frequency means urinating more often than usual. With urinary frequency, you may urinate every 1 2 hours even though you drink a normal amount of fluid and do not have a bladder infection or other bladder condition. Your health care provider may recommend that you keep a bladder diary, follow a bladder training program, or make dietary changes. If told by your health care provider, do Kegel exercises to strengthen the muscles that help control urination. Take byez-pkq-ptmsfbv and prescription medicines only as told by your health care provider. Contact a health care provider if your symptoms do not improve or get worse. This information is not intended to replace advice given to you by your health care provider. Make sure you discuss any questions you have with your health care provider. Document Revised: 05/10/2021 Document Reviewed: 05/10/2021 [employer] Patient Education 2022 [employer]. Follow Up Care 05/10/2024 08:27:04 With:Mandi Salinas URL Address: When:3 months [facility] 06-02-2024 Note Patient Education Urology Urinary Frequency, Adult Urinary frequency means urinating more often than usual. You may urinate every 1?2 hours even though you drink a normal amount of fluid and do not have a bladder infection or condition. Although you urinate more often than normal, the total amount of urine produced in a day is normal. With urinary frequency, you may have an urgent need to urinate often. The stress and anxiety of needing to find a bathroom quickly can make this urge worse. This condition may go away on its own, or you may need treatment at home. Home treatment may include bladder training, exercises, taking medicines, or making changes to your diet. Follow these instructions at home: Bladder health Your health care provider will tell you what to do to improve bladder health. You may be told to: ? Keep a bladder diary. Keep track of: ? What you eat and drink. ? How often you urinate. ? How much you urinate. ? Follow a bladder training program. This may include: ? Learning to delay going to the bathroom. ? Double urinating, also called voiding. This helps if you are not completely emptying your bladder. ? Scheduled voiding. ? Do Kegel exercises. Kegel exercises strengthen the muscles that help control urination, which may help the condition. Eating and drinking Follow instructions from your health care provider about eating or drinking restrictions. You may be told to: ? Avoid caffeine. ? Drink fewer fluids, especially alcohol. ? Avoid drinking in the evening. ? Avoid foods or drinks that may irritate the bladder. These include coffee, tea, soda, artificial sweeteners, citrus, tomato-based foods, and chocolate. ? Eat foods that help prevent or treat constipation. Constipation can make urinary frequency worse. You may need to take these actions to prevent or treat constipation: ? Drink enough fluid to keep your urine pale yellow. ? Take wgjl-aae-rjeafik or prescription medicines. ? Eat foods that are high in fiber, such as beans, whole grains, and fresh fruits and vegetables. ? Limit foods that are high in fat and processed sugars, such as fried or sweet foods. General instructions ? Take byig-lbu-ikfkntn and prescription medicines only as told by your health care provider. ? Keep all follow-up visits. This is important. Contact a health care provider if: ? You start urinating more often. ? You feel pain or irritation when you urinate. ? You notice blood in your urine. ? Your urine looks cloudy. ? You develop a fever. ? You begin vomiting. Get help right away if: ? You are unable to urinate. Summary ? Urinary frequency means urinating more often than usual. With urinary frequency, you may urinate every 1?2 hours even though you drink a normal amount of fluid and do not have a bladder infection or other bladder condition. ? Your health care provider may recommend that you keep a bladder diary, follow a bladder training program, or make dietary changes. ? If told by your health care provider, do Kegel exercises to strengthen the muscles that help control urination. ? Take bkuj-qck-qbfoklf and prescription medicines only as told by your health care provider. ? Contact a health care provider if your symptoms do not improve or get worse. This information is not intended to replace advice given to you by your health care provider. Make sure you discuss any questions you have with your health care provider. Document Revised: 05/10/2021 Document Reviewed: 05/10/2021 [employer] Patient Education ? 2022 [employer]. [facility] 03-02-2023 Note PROCEDURE: XR SHOULD ER RT [...] authenticated by: DOMINGA HERNANDES Date: 2023-03-02 07:45 [facility] Evaluation + Plan note Future Appointments Appointment Date:09/01/2024 08:00:00 AM Scheduled Provider:Mandi Salinas Location:[facility] Appointment Type:URO Office Visit [facility] Evaluation + Plan note Future Appointments Appointment Date:09/01/2024 08:00:00 AM Scheduled Provider:Mandi Salinas Location:[facility] Appointment Type:URO Office Visit Diagnostic Tests PendingUrine Culture 06/02/24 [facility] Evaluation + Plan note Future Appointments Appointment Date:12/19/2024 08:20:00 AM Scheduled Provider:XU MABRY PA-C Location:[facility] Appointment Type:URO Office Visit Diagnostic Tests PendingUrine Culture 11/21/24 [facility] Evaluation + Plan note Future Appointments Appointment Date:12/19/2024 08:20:00 AM Scheduled Provider:XU MABRY PA-C Location:[facility] Appointment Type:URO Office Visit [facility] Evaluation note Diagnosis Onset Date Carotid bruit acute Hypertension acute Osteoporosis acute Post herpetic neuralgia acut e Retinopathy acute [facility] Work Phone: Evaluation noteNo assessment information available [facility] Work Phone: Hospital course Narrative No data available for this section [facility] Hospital Discharge instructions No data available for this section [facility] Progress note No data available for this section [facility] Summary Purpose Family History No Family History Records Found Relationship Condition Age at Onset Recorded Date/T emily brother Unknown father Heart disease Unknown Unknown Not Specified Unknown Malignant neoplasm Unknown History of ovarian cancer Unknown sister Malignant neoplasm Unknown Relationship Condition Age at Onset Recorded Date/T emily brother Unknown father Heart disease Unknown Unknown mother Unknown Malignant neoplasm Unknown History of ovarian cancer Unknown sister Malignant neoplasm Unknown Advance Directives No Advanced Directives Records Found Advance Directive Response Recorded Date/ Time Advance Directives No October 22, 2018 9:59am Advance Directive Response Recorded Date/ Time Advance Directives No October 22, 2018 8:59am Chief Complaint and Reason for Visit Chief Complaint bp / bs check Reason for Visit Carotid bruit Hypertension Osteoporosis Post herpetic neuralgia Retinopathy Chief Complaint Admit Date wellness December 14, 2024 9:04am Additional Source Comments INFORMATION SOURCE (unrecogn ized section and content) DATE CREATED AUTHOR 03/03/2023 Carol carter DATE CREATED AUTHOR AUTHOR'S ORGANIZ ATION 06/05/2024 [facility] DATE CREATED AUTHOR AUTHOR'S ORGANIZ ATION 09/03/2024 [facility] DATE CREATED AUTHOR AUTHOR'S ORGANIZ ATION 09/05/2024 [facility] DATE CREATED AUTHOR AUTHOR'S ORGANIZ ATION 09/12/2024 [facility] DATE CREATED AUTHOR AUTHOR'S ORGANIZ ATION 11/25/2024 [facility] DATE CREATED AUTHOR AUTHOR'S ORGANIZ ATION 12/20/2024 [facility] DATE CREATED AUTHOR AUTHOR'S ORGANIZ ATION 12/21/2024 [facility] DATE CREATED AUTHOR AUTHOR'S ORGANIZ ATION 12/23/2024 [facility] DATE CREATED AUTHOR AUTHOR'S ORGANIZ ATION 12/25/2024 [facility] Care Teams (unrecognized sec tion and content) Team Status: Active Member Role Status Dates Tess Moore MD Primary Care Provider Active Team Status: Inactive Member Role Status Dates Tess Moore MD Primary Care Provide r, Attending Provider Active Start: February 03, 2024 End: February 03, 2024 Team Status: Inactive Member Role Status Dates Tess Moore MD Primary Care Provide r, Attending Provider Active Start: December 14, 2024 End: December 14, 2024 Goals (unrecognized section and content) Goals may be documented in a n alternate section No data available for this section No data available for this section No data available for this section No data available for this section No data available for this section No data available for this sectionGoals may be documented in an alternate section No data available for this section No data available for this section FOR RECORDS PERTAINING TO PATIENTS WHO [...] BE BASED ON THE PRIMARY CLINICAL RECORDS. [facility] [facility]. provides no warranty or guarantee of the accuracy or completeness of information in this document.
--- NOTE | 2024-12-28 07:27 | XR_ITS ---
The [address] [address] Patient Name: ANTOINE MTZ MRN: [id number] date: 1955 Sex: F Assigned Patient Location: Current Patient Location: [place] Accession/Order Number: [id number] Exam Date: 12/28/2024 07:37 Report Date: 12/28/2024 07:42 At the request of: XU PEREZ Procedure: XR abdomen 1V SINGLE VIEW ABDOMEN CLINICAL DATA: Recurrent urinary tract infections COMPARISON: None Supine view of the abdomen and pelvis was obtained. There is some air and stool within the colon, greater on the right. No dilated small bowel loops are identified. There is question of a possible tiny 3 mm left lower pole renal stone. No obvious calculi are seen at the right kidney. There are few calcifications within the pelvis. These might be phleboliths however ureteral stones are difficult to completely exclude without comparison. No soft tissue masses are seen. There is levoscoliotic curvature and degenerative change at the spine. XR/XR abdomen 1V IMPRESSION: POSSIBLE LEFT NEPHROLITHIASIS. PELVIC CALCIFICATIONS, POSSIBLY PHLEBOLITHS HOWEVER DISTAL URETERAL STONES ARE NOT COMPLETELY EXCLUDED. Impression dictated by: Marysol Ware M.D.12/28/2024 7:42 AM Dictation Location: [place] [address] Electronically authenticated by: [id number] Y Date: 12/28/2024 07:42
== END 2024-12-28 07:08 | disposition home or self-care (01) ==
LOC: US 07:07
PROVIDERS: PCP Family Medicine; Visit Provider Physician Assistant
DX: N39.0 Urinary tract infection, site not specified (principal)
CPT/HCPCS: 74018; 76775

== ENCOUNTER 2025-07-08 06:44 | Outpatient (OUT) | payer MEDICARE, SELFPAY ==
--- OUTSIDE RECORDS SUMMARY | 2025-07-08 06:49 | XMS_ITS | CCD ---
Author Organization [facility] Care Team Providers Care Food Service Manager Name Role Phone OSCAR, DR TESS Higgins Admitting Unavailable MOORE, DR TESS Higgins Primary Care Unavailable MOORE, DR TESS Higgins Attending Unavailable MOORE, DR TESS Higgins Primary Care Unavailable REQUEST, DR TRIPP LISTED Admitting Unavaila ble REQUEST, DR TRIPP LISTED Attending Unavaila ble MOORE, DR TESS Higgins Admitting Unavailable MOORE, DR TESS Higgins Primary Care Unavailable [facility], DR DOMINGA Junior Consulting Unavailable MOORE, DR [...] Unavailable MOORE, DR TESS Higgins Consulting Unavailable TESS MOORE Primary Care Physician Mandi Patton Attending Unavailable GaleaMandi Admitting Unavailable Galea, Mandi Live Attending Unavailable Galea, Mandi Live Attending Unavailable GaleaMandi Attending Unavailable GalMandi sparks Admitting Unavailable XU MABRY Attending Unavailable XU MABRY Admitting Unavailable XU MABRY Attending Unavailable XU MABRY Attending Unavailable XU MABRY Attending Unavailable XU MABRY Admitting Unavailable Tess Moore MD Primary Care Provider TESS MOORE Referring Unavailable TESS MOORE Primary Care Unavailable Lotus Medellin Attending Unavailable XU MABRY Attending Unavailable Geraldo HOWARD Attending Unavailable Tess Moore MD Primary Care Provider Tess Moore MD Attending Provider Allergies Allergy Classification Reported Allergen(s) Allergy Type Date of Onset Reaction(s) Facility (5 sources) No Known Medication Allergies; Translations: [No Known Medication Allergies] Propensity to adverse reactions (disorder) [facility] Repository Medications Current Medications Medication Drug Class(es) Dates Sig (Normalized) Sig (Original) alendronic acid 70 mg oral tablet (16 sources) Bisphosphonate Start: 06-21-2024 End: 05-23-2025 Alendronate 70 mg tablet Active 0 .ROUTE .COMPLEX May 23, 2025 10:59am TAKE 1 TABLET ONCE A WEEK Complies with drug therapy Start: 02-02-2024 End: 06-21-2024 take 1 tablet by mouth every week Alendronate 70 mg tablet Discontinued MG PO February 02, 2024 12:00am June 21, 2024 1:18pm FreeTextSig: TAKE 1 TABLET ONCE A WEEK; Note: Source Status: Start; Refills: 3; Qty: 12 Tablet; Provider: Oscar Pulido ( ) Start: 07-24-2019 alendronate (F OSAMAX) 70 mg tablet Take 1 tablet (70 mg total) by mouth every 7 days. 07/24/2019 Active aspirin 81 mg oral capsule (10 sources) Platelet Aggregation Inhibitor, Nonsteroidal Anti-inflammatory Drug Start: 06-02-2024 take 1 mg by mouth every twenty-four hours aspirin 81 mg oral capsule mg cap(s), Oral, q24hr, Refills(s) 0 Start Date: 06/02/24 Status: Ordered Repeat number: 1 take 1 tablet by mouth in the mo rning aspirin 81 mg Take 1 tablet (81 mg total) by mouth in the morning. Active Calcium Carbonate (1 source) take 2000 mg by mouth in the morning calcium carbonate (CALCIUM 500 ORAL) Take 2,000 mg by mouth in the morning. Active calcium citrate 950 mg oral tablet (9 sources) Start: 4 take 1 mg by mouth twice daily calcium (as calcium citrate) 200 mg oral tablet mg tab(s), Oral, BID, Refills(s) 0 Start Date: 06/02/24 Status: Ordered Repeat number: 1 cholecalciferol 0.125 mg oral tablet (1 source) Vitamin D take 1 tablet by mouth in the morning cholecalciferol, vitamin D3, (VITAMIN D3) 5,000 units tablet Take 1 tablet (5,000 Units total) by mouth in the morning. Active Cranberry preparation (3 sources) Non-Standardized Food Allergenic Extract, Non-Standardized Plant Allergenic Extract Start: take 1 tablet by mouth once daily Cranberry 1 tab, Oral, Daily Start Date: 12/19/24 Status: Ordered Repeat number: 1 Start: 12-19-2024 take 1 tablet by saulo once daily Cranberry 1 tab, Oral, Daily Start Date: 12/19/24 Status: Ordered estradiol 0.1 mg/ml vaginal cream (9 sources) Estrogen Start: 05-15-2025 Estrace 0.1 mg /g Cream See Instructions, 42.5 gm, Refill(s) 6, Apply a pea-sized amount around the urethra using your fingertip. Apply nightly x 3 weeks, then 3x per week thereafter for maintenance., [facility], 151, cm, 05/15/25 8:24:00 EDT, Height/Length Dosing, 66.7, kg, 05/15/25 8:24:00 EDT, Weight Dosing Start Date: 05/15/25 Status: Ordered Quantity: 42.5 Unit: g Repeat number: 7 Start: 06-02-2024 Estrace 0.1 mg /g Cream 1 gm, Vaginal, As Directed, 42.5 gm, Refill(s) 3, apply pea-sized amount to urethra 3x/week for 1 month, then 2x/week for maintenance, [facility], 151, cm, 06/02/24 13:27:00 EDT, Height/Length Dosing, 69, kg, 06/02/24 13:27:00 EDT, Weight Dosing Start Date: 06/02/24 Status: Ordered losartan potassium 25 mg oral tablet (1 source) Angiotensin 2 Receptor Christopher Start: 06-30-2025 take 1 tablet by mouth once daily Losartan 25 mg tablet Active 25 MG PO Daily June 30, 2025 12:00am Complies with drug therapy oxybutynin chloride 5 mg oral tablet (1 source) Cholinergic Muscarinic Antagonist Start: 05-15-2025 End: 08-13-2025 take 2 tablets by mouth at bedtime oxybutynin 5 mg Tab 10 mg = 2 tab(s), Oral, Bedtime, X 30 day(s), # 60 tab(s), Refills(s) 2, Pharmacy: [facility], 151, cm, 05/15/25 8:24:00 EDT, Height/Length Dosing, 66.7, kg, 05/15/25 8:24:00 EDT, Weight Dosing Start Date: 05/15/25 Stop Date: 08/13/25 Status: Ordered Quantity: 60.0 Unit: tab(s) Repeat number: 3 sulfamethoxazole 800 mg / trimethoprim 160 mg oral tablet (2 sources) Dihydrofolate Reductase Inhibitor Antibacterial, Sulfonamide Antimicrobial Start: 11-21-2024 End: 12-01-2024 Bactrim D.S. 800 mg-160 mg Tab 1 tab(s), Oral, BID for 10 day(s), 20 tab(s), Refill(s) 0, [facility], 151, cm, 11/21/24 8:42:00 EST, Height/Length Dosing, 69, kg, 11/21/24 8:42:00 EST, Weight Dosing Start Date: 11/21/24 Stop Date: 12/01/24 Status: Ordered Vitamin D (9 sources) Start: 06-02-2024 Vitamin D International_U nit, Oral, qWeek, Refills(s) 0 Start Date: 06/02/24 Status: Ordered Repeat number: 1 Start: 06-02-2024 Vitamin D Inte rnational_Unit, Oral, qWeek, Refills(s) 0 Start Date: 06/02/24 [...] procedure, # 2 tab(s), Refills(s) 0, Pharmacy: [facility], 151, cm, 12/19/24 8:40:00 EST, Height/Length Dosing, 69, kg, 12/19/24 8:40:00 EST, Weight Dosing Start Date: 12/19/24 Status: Ordered cyclobenzaprine hydrochloride 10 mg oral tablet (3 sources) Muscle Relaxant Start: 02-02-2024 End: 02-03-2024 take 1 tablet by mouth three times daily as needed Cyclobenzaprine 10 mg tablet Discontinued 1 TAB PO Three times daily February 02, 2024 12:00am February 03, 2024 9:45am FreeTextSi tablet as needed Orally Three times a day; Note: Source Status: Not-TakingundefinedP RN; Refills: 0; Qty: 21 Tablet; Provider: Pravin Cordero trospium chloride 20 mg oral tablet (7 sources) Cholinergic Muscarinic Antagonist Start: 09-01-2024 End: 06-30-2025 take 1 tablet by mouth once Trospium 20 mg tablet Discontinued 20 MG PO Once December 14, 2024 1:00am June 30, 2025 9:56am administer on an empty stomach Problems Active Problems Problem Classification Problem Date Documented Date Episodic/Chronic Disorders of lipid metabolism (9 sources) Hyperlipidemia 06-02-2024 Chronic Essential hypertension (5 sources) Hypertensive disorder; Translations: [Essential (primary) hypertension] 02-03-2024 Chronic Genitourinary symptoms and ill-defined conditions (13 sources) Nocturia; Translations: [Nocturia] Onset: 06-02-2024 Episodic Osteoporosis (4 sources) Osteoporosis; Translations: [Age-related osteoporosis without current pathological fracture] 02-03-2024 Chronic Other circulatory disease (3 sources) Carotid bruit; Translations: [Other specified symptoms and signs involving the circulatory and respiratory systems] 02-03-2024 Episodic Other circulatory disease (1 source) Other specified symptoms and signs involving the circulatory and respiratory systems; Translations: [Other symptoms involving cardiovascular system] 02-03-2024 Episodic Other circulatory disease (1 source) Elevated blood pressure; Translations: [Elevated blood-pressure reading, without diagnosis of hypertension] 12-14-2024 Episodic Other diseases of bladder and urethra (3 sources) Urethral stricture 12-19-2024 Episodic Other diseases of bladder and urethra (2 sources) Male urethral stricture; Translations: [Unspecified urethral stricture, male, unspecified site] Onset: 12-19-2024 Episodic Other screening for suspected conditions (not mental disorders or infectious disease) (10 sources) Encounter for screening mammogram for malignant neoplasm of breast; Translations: [Abnormal electrocardiogram [ECG] [EKG]] Onset: 07-31-2022 Episodic Retinal detachments; defects; vascular occlusion; and retinopathy (4 sources) Retinal disorder; 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 Chronic Screening and history of mental health and substance abuse codes (1 source) Standardized adult depression screening tool completed ; Translations: [Encounter for screening for depression] 03-08-2025 Episodic Urinary tract infections (7 sources) Urinary tract infectious disease; Translations: [Urinary tract infection, site not specified] Onset: 09-01-2024 Episodic Viral infection (4 sources) Postherpetic neuralgia; Translations: [Other postherpetic nervous system involvement] 02-03-2024 Episodic Past or Other Problems Problem Classification Problem Date Documented Da te Episodic/Chronic Mood disorders (1 source) Mood disorders Onset: 03-08-2025 03-08-2025 Other lower respiratory disease (4 sources) Other forms of dyspnea; Translations: [OTHER FORMS OF DYSPNEA] Onset: 07-02-2022 Episodic Residual codes; unclassified (1 source) Family history of malignant neoplasm of breast; Translations: [FAMILY HX MALIG NEOPLASM OF BREAST] Onset: 08-30-2022 Episodic Residual codes; unclassified (1 source) Family history of malignant neoplasm of ovary; Translations: [FAM HX MALIGNANT NEOPLASM OVARY] Onset: 08-30-2022 Episodic Residual codes; unclassified (1 source) Family history of malignant neoplasm of ovary; Translations: [Family history of malignant neoplasm of ovary] Onset: 03-03-2023 03-03-2023 Episodic Unclassified (1 source) Onset: 03-03-2023 03-03-2023 Results Test Name Value Interpretation Reference Range Facil ity Urology Office/Clinic Noteon 05-15-2025 Urology Office/Clinic Note Urology Office/Clinic Note Chief Complaint pt here for 4 mth follow up HPI Staff 4 month f/u Dx: recurrent UTI, nocturia, urethral stricture S/P cysto UD 01/10/25. Estrace cream is no longer taking because she did not refill them BBSQ: 17 pt is currently taking cranberry supplement and thinks that it is helping pt denies pain/burning denies visible blood pt denies flank pain pt complains of nocturia she gets up about 4-5 times nightly and it is urgent Review of Systems PHQ Score Initial Depression Screen Score: 0 SCORE No fever, chills, malaise, myalgia. No abdominal pain, flank pain, gross hematuria. Physical Exam Vitals & Measurements HR: 70(Peripheral) RR: 18 BP: 138/76 HT: 151 cm HT: 59 in WT: 147.048 lb WT: 66.7 kg BMI: 29.25 General: nontoxic, NAD Mouth: moist mucosa Lungs: normal respiratory effort Cardio: regular rate, good distal perfusion Abdomen: nondistended Neurologic: Grossly normal Skin: No rashes or [...] salmeron-S E Coli. Empiric Bactrim x 10d. 12/19/24: Pt feels odor and nocturia improve while on abx then come right back. UA today +nit again. -Urine Cx. Treat w abx (Cipro), tx level x 1 week then low dose daily (Keflex) x 1 mo. -We will check KUB & TONIA to rule out stones as contributing factor to UTIs. -Will schedule Cysto with possible UD. See #3. TODAY: Pt's Cx from last ov showed 100k Klebsiella. Pt finished Cipro x 1 wk then Keflex x 1 mo. TONIA/KUB suggested tiny non-obstructing renal stone but no ureteral stones and nothing large enough that I would suspect it is contributing to her UTIs. 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 Pt was instructed to take Macrobid daily x 3 mos. Pt finished this late March and has been off abx >1 mo. She no longer has odor or burning. UA IO today only shows trace leuks and trace hgb (whereas previously it was always nitrite+). Pt feeling marked improvement in UTI sx. Ordered: Body Mass Index (BMI) documented 3008F Current tobacco non-user 1036F Depression Screening Negative 3352F Influenza immunization status assessed 1030F Medication list [...] BP 130-139 mm Hg (Most Recent) 3075F Urnls Dip Stick Auto w/o Microscopy POC 32307 2. Nocturia (R35.1: Nocturia) 06/02/24: BBSQ 19. [...] infected. Could certainly be worsening the nocturia. 12/19/24: Nocturia continues to fluctuate. BBSQ 14. See #1 and #3. TODAY: PRW had pt stop the Trospium qhs at cysto 01/10/25. Pt continues to have nocturia x4-5. This is very bothersome. Denies bothersome daytime sx. Has been limiting fluids in evening as instructed. Discussed options. Medication management includes anticholinergics and beta-3 agonists. Beta-3???s (Myrbetriq/Gemtesa) are often preferable due to lower side effect profile, but most insurances won???t cover without trying/failing at least 2 anticholinergics first. Therefore we will try another. If fails second anticholinergic, we can consider Beta-3 vs voiding diary + DDAVP if indicated. 3. Urethral stricture (N35.919: Unspecified urethral s (more content not included)... [facility] Comment on above: Result Comment: Elec tronically Signed By: XU MABRY PA-C\.br\Date and Time Signed: 05/15/25 09:00 EDT C Urineon 12-21-2024 Bacteria identified Cx Nom (U) [...] Locations R1: This test was performed at: [facility], [address] [place] [address], [facility]- , [place], [facility] Comment on above: Performed By: #### 2 [id number] #### [facility] [address] [place] [address] Urology Office/Clinic Noteon 12-19-2024 Urology Office/Clinic Note [...] E&M of Est. Patient Moderate 30-39 Min 89300 Influenza immunization status assessed 1030F Medication list [...] Urnls Dip Stick Auto w/o Microscopy POC 53059 US Renal XR Abdomen 1 View 2. [...] procedure, # 2 tab(s), Refills(s) 0, Pharmacy: [facility], 151, cm, 12/19/24 8:40:00 EST, Height/Length Dosing, 69, kg, 12/19/24 8:40:00... Follow-up With When Contact Information [facility] [place] [address] Business (1) Additional Instructions: our twisting machine operator will be contacting you for follow-up Patient E (more content not included)... [facility] Comment on above: Result Comment: Elec tronically Signed By: XU MABRY PA-C\.br\Date and Time Signed: 12/19/24 16:24 EST C [...] Locations R1: This test was performed at: [facility], [address] [place] [address], [facility]- , , [facility] Comment on above: Performed By: #### 2 [id number] #### [facility] [address] [place] [address] Ambulatory Visit Summaryon 0 11-21-2024 Ambulatory Visit Summary Ambulatory Visit Summary YEENATALIANTOINE :1955 Visit Date:11/21/2024 Ambulatory Visit Instructions Your [...] Follow-Up Appointments Thursday 8:20 AM EST With: RAGHAVENDRA VERDE, XU Higgins Where: [facility] [address] [place] [address]- Medications What How Much When Why Instructions New sulfamethoxazole-trimet hoprim (Bactrim D.S. 800 mg-160 mg Tab) 1 Tablets By Mouth 2 times a day Duration: 10 Days Pickup at [facility] Unchanged estradiol topical (Estrace 0.1 mg/ [...] physician if questions or concerns Pharmacy Information [facility]: [address] [place], [place] [phone] Allergies No Known Medication Allergies Problems Ongoing - Any problem that you are currently receiving treatment for. Hyperlipidemia Nocturia Patient Survey You may receive a survey via text or e-mail asking about your office visit. Please share your experience with us by completing your survey. We appreciate your feedback and thank you for choosing us for your care. [facility] Urology Office/Clinic Noteon 11-21-2024 Urology Office/Clinic Note [...] E&M of Est. Patient Moderate 30-39 Min 21312 Urnls Dip Stick Auto w/o Microscopy POC 89199 2. Recurrent UTI (N39.0: Urinary tract infection, [...] mo to ensure infection completely gone. Ordered: 71930 Measure Post Void residual urine and/or bladder capacity by US- non-imaging E&M of Est. Patient Moderate 30-39 Min 14830 Orders: sulfamethoxazole-trimet hoprim, 1 tab(s), Oral, BID for 10 day(s), 20 tab(s), Refill(s) 0, [facility], 151, cm, 11/21/24 8:42:00 EST, Height/Length Dosing, 69, kg, 11/21/24 8:42:00 EST, Weight Dosing Follow-up With When Contact Information RAGHAVENDRA VERDE, XU Higgins, URL In 1 month [address] [place] [address] Additional Instructions: Patient Education Urinary [...] Sister. Liver diseas (more content not included)... [facility] Comment on above: Result Comment: Elec tronically Signed By: XU MABRY PA-C\.chiara\Date and Time Signed: 11/21/24 09:35 EST Reminderson 09-09-2024 Reminders Reminders From: Laurel Campbell To: EU - Administrative; Sent: 09/09/2024 11:58:48 EST Show up: 09/09/2024 11:58:00 EST Subject: Ambulatory Reminder Due Date/Time: 12/03/2024 11:58:00 EST Reminder/Recall Patient needs scheduled for a 3 m F/U with PVR, due back in with an MARCELINO in November [facility] C Urineon 09-03-2024 Bacteria identified Cx Nom (U) Microbiology PROCEDURE: Urine Culture [R1] SOURCE: U Random BODY SITE: COLLECTED DATE/TIME: 09/01/2024 09:07 EST RECEIVED DATE/TIME: 09/01/2024 18:10 EST START DATE/TIME: 09/01/2024 18:10 EST FREE TEXT SOURCE: Mandi Salinas, Mandi Live FINAL REPORTS Final Report [] Verified Date/Time: [...] Locations R1: This test was performed at: [facility], [address] [place] [address], [id number]- , [place], [facility] Comment on above: Performed By: #### 2 [id number] #### [facility] [address] [place] [address] Ambulatory Visit Summaryon 1 11-01-2023 Ambulatory Visit Summary Ambulatory Visit Summary ANTOINE YEE :1955 Visit Date:09/01/2024 Ambulatory Visit Instructions Your [...] Mandi Salinas, JONATHAN When: Within 3 months Comments: w/ PVR Where: Medications What How Much When Why Instructions New trospium (trospium 20 mg oral tablet) 1 Tablets By Mouth Every day Refills: 4 at nighttime Pickup at [facility] Unchanged alendronate (Fosamax 70 mg Tab) [...] physician if questions or concerns Pharmacy Information [facility]: [address] [place] [phone] Allergies No Known Medication Allergies Problems Ongoing [...] condit (more content not included)... [facility] Urology Office/Clinic Noteon 09-01-2024 Urology Office/Clinic Note [...] E&M of Est. Patient Moderate 30-39 Min 86620 Influenza immunization status assessed 1030F Medication list [...] Urnls Dip Stick Auto w/o Microscopy POC 36453 2. Recurrent UTI (N39.0: Urinary tract infection, [...] E&M of Est. Patient Moderate 30-39 Min 51081 Orders: trospium, 20 mg = 1 tab(s), Oral, Daily, at nighttime, # 30 tab(s), Refills(s) 4, Pharmacy: [facility], 151, cm, 09/01/24 8:26:00 EST, Height/Length [...] (as c (more content not included)... [facility] Comment on above: Result Comment: Elec tronically Signed By: Mandi Salinas\.br\Date and Time Signed: 09/01/24 08:57 EST C Urineon 06-04-2024 Bacteria identified Cx Nom (U) Microbiology PROCEDURE: Urine Culture [R1] SOURCE: U CleanCatch BODY SITE: COLLECTED DATE/TIME: 06/02/2024 14:01 EDT RECEIVED DATE/TIME: 06/02/2024 17:49 EDT START DATE/TIME: 06/02/2024 17:49 EDT FREE TEXT SOURCE: Mandi Salinas-Jessie, Mandi Live FINAL REPORTS Final Report [] Verified Date/Time: [...] Locations R1: This test was performed at: [facility], [address] [place] [address], [address]- , [place], [facility] Comment on above: Performed By: #### 2 [id number] #### [facility] [address] [place] [address] Ambulatory Visit Summaryon 0 06-02-2024 Ambulatory Visit Summary Ambulatory Visit Summary ANTOINE YEE :1955 Visit Date:06/02/2024 Ambulatory Visit Instructions Your [...] With: Mandi Salinas Where: [facility] [address] [place] [address]- You Need to Schedule the Following Appointments Follow Up with Mandi Salinas, URL When: Within 3 months Where: Medications What How Much When Why Instructions New estradiol topical (Estrace 0.1 mg/ g Cream) 1 Gram Vaginal As Directed Nocturia Refills: 3 apply pea-sized amount to urethra 3x/ week for 1 month, then 2x/ week for maintenance Pickup at [facility] Unchanged alendronate (Fosamax 70 mg Tab) [...] physician if questions or concerns Pharmacy Information [facility]: [address] [place] [phone] Allergies No Known Medication Allergies Problems Ongoing [...] keep your urine pale yellow. ? Take aoir-nyy-zwpesfk or prescription medicines. ? Eat foods that are high in fiber, such as beans, whole grains, and fresh fruits and vegetables. ? Limit foods that are high in fat and processed sugars, such as fried or sweet foods. General instructions ? Take bwzn-uww-fdhrmek and prescription medicines only as told by your health care provider. ? Keep all follow-up visits. This is important. Contact a he (more content not included)... [facility] Urology Office/Clinic Noteon 06-02-2024 Urology Office/Clinic Note [...] >60 1. Nocturia (R35.1: Nocturia) 09/03/15 cysto/UD (LUIS) - urethral stricture UA today small blood, [...] for 1 month, then 2x/week for maintenance, [facility], 151, cm, 06/02/24 13:27:00 EDT, Height/Length Dosing, 69, kg, 06/02/24 13:27:00 EDT, Nehemiah... 99065 Measure Post Void residual urine and/or bladder capacity by US- non-imaging E&M of New Patient Moderate 45-59 Min 81873 Urine Culture Urnls Dip Stick Auto w/o Microscopy POC 74680 2. Abnormal urinalysis (R82.90: Unspecified abnormal findings in urine) UA today small blood, + nitrates, trace leuks Spoke with patient regarding UA results today, pt denies UTI symptoms. Advised pt that infection could be contributing to her nocturia. Will send for cx and treat if positive. -Send urine for cx, treat if positive -See #1 Ordered: E&M of New Patient Moderate 45-59 Min 14378 Urine Culture Follow-up With When Contact Information [...] lifetime) Tobacc (more content not included)... [facility] Comment on above: Result Comment: Elec tronically Signed By: Mandi Salinas\.br\Date and Time Signed: 06/02/24 14:16 EDT CBC AUTO DIFFon 03-02-2023 BASO # 0.0 103/ul Normal 0.0-0.1 [facility] Comment on above: Performed By: #### D ATCBC #### [facility] [address] [address] [address] Gemma Sanchez Basophils/100 WBC (Bld) 0.6 % Normal 0.2-2.0 [facility] Comment on above: Performed By: #### D ATCBC #### [facility] [address] [place] [address] Dr. Gemma Sanchez EO # 0.2 103/ul Normal 0.0-0.7 [facility] Comment on above: Performed By: #### D ATCBC #### [facility] [address] [place] [address] Dr. Gemma Sanchez Eosinophils/100 WBC (Bld) 3.7 % Normal 0.9-7.0 [facility] Comment on above: Performed By: #### D ATCBC #### [facility] [address] [place] [address] Dr. Gemma Sanchez Erythrocyte distribution width (RBC) [Ratio] 12.5 % Normal 11.0-15.0 [facility] Comment on above: Performed By: #### D ATCBC #### [facility] [address] [place] [address] Dr. Gemma Sanchez Hematocrit (Bld) [Volume fraction] 41.7 % Normal 36.0-48.0 [facility] Comment on above: Performed By: #### D ATCBC #### [facility] Laboratory [address] [place] [address] Dr. Gemma Sanchez Hemoglobin (Bld) [Mass/Vol] 14.1 g/dL Normal 12.0-16.0 [facility] Comment on above: Performed By: #### D ATCBC #### [facility] [address] [place] [address] Dr. Gemma Sanchez IG # 0.02 10e3/ul Normal 0.00-0.03 [facility] Comment on above: Performed By: #### D ATCBC #### [facility] [address] [place] [address] Dr. Gemma Sanchez IG % 0.4 % Normal 0.0-0.5 [facility] Comment on above: Performed By: #### D ATCBC #### [facility] [address] [place] [address] Dr. Gemma Sanchez LYMPH # 1.3 103/ul Normal 1.2-3.8 [facility] Comment on above: Performed By: #### D ATCBC #### [facility] [address] [place] [address] Dr. Gemma Sanchez Lymphocytes/100 WBC (Bld) 23.9 % Normal 20.5-60.0 [facility] Comment on above: Performed By: #### D ATCBC #### [facility] [address] [place] [address] Dr. Gemma Sanchez MCH (RBC) [Entitic mass] 31.5 pg Normal 26.7-34.0 [facility] Comment on above: Performed By: #### D ATCBC #### [facility] [address] [place] [address] Dr. Gemma Sanchez MCHC (RBC) [Mass/Vol] 33.8 g/dL Normal 29.9-35.2 [facility] Comment on above: Performed By: #### D ATCBC #### [facility] [address] [place] [address] Dr. Gemma Sanchez MCV (RBC) [Entitic vol] 93.1 fL Normal 81.0-99.0 [facility] Comment on above: Performed By: #### D ATCBC #### [facility] [address] [place] [address] Dr. Gemma Sanchez MONO # 0.3 103/ul Normal 0.3-0.8 [facility] Comment on above: Performed By: #### D ATCBC #### [facility] [address] [place] [address] Dr. Gemma Sanchez Monocytes/100 WBC (Bld) 6.2 % Normal 1.7-12.0 [facility] Comment on above: Performed By: #### D ATCBC #### [facility] [address] [place] [address] Dr. Gemma Sanchez NEUT # 3.5 103/ul Normal 1.4-6.5 [facility] Comment on above: Performed By: #### D ATCBC #### [facility] [address] [address] [address] Gemma Sanchez Neutrophils/100 WBC (Bld) 65.2 % Normal 43.0-75.0 [facility] Comment on above: Performed By: #### D ATCBC #### [facility] [address] [address] [address] Gemma Sanchez Platelet mean volume (Bld) [Entitic vol] 8.9 fL Critically low 9.5-13.5 [facility] Comment on above: Performed By: #### D ATCBC #### [facility] [address] [address] [address] Gemma Sanchez PLT 245 103/ul Normal 150-450 [facility] Comment on above: Performed By: #### D ATCBC #### [facility] [address] [place] [address] Dr. Gemma Sanchez RBC 4.48 106/ul Normal 4.20-5.40 [facility] Comment on above: Performed By: #### D ATCBC #### [facility] [address] [place] [address] Dr. Gemma Sanchez WBC 5.4 103/ul Normal 4.0-11.0 [facility] Comment on above: Performed By: #### D ATCBC #### [facility] [address] [place] [address] Dr. Gemma Sanchez BUTCH- BMP WITH LIPIDon 2022 Anion gap [Moles/Vol] 14.7 mmol/L Normal [facility] Comment on above: Performed By: #### D ATBMP #### [facility] [address] [place] [address] Dr. Gemma Sanchez Calcium [Mass/Vol] 8.6 mg/dL Normal 8.5-10.1 [facility] Comment on above: Performed By: #### D ATBMP #### [facility] [address] [place] [address] Dr. Gemma Sanchez Chloride [Moles/Vol] 106 mmol/L Normal 98-107 [facility] Comment on above: Performed By: #### D ATBMP #### [facility] [address] [address] [address] Gemma Sanchez Cholesterol [Mass/Vol] 207 mg/dL Critically high <=200 [facility] Comment on above: Performed By: #### D ATBMP #### [facility] [address] [address] [address] Gemma Sanchez Cholesterol in HDL [Mass/Vol] 66 mg/dL Critically high 40-60 [facility] Comment on above: Performed By: #### D ATBMP #### [facility] [address] [address] [address] Gemma Sanchez Cholesterol in LDL [Mass/Vol] 119.2 mg/dL Normal [facility] Comment on above: Performed By: #### D ATBMP #### [facility] [address] [address] [address] Gemma Sanchez CO2 [Moles/Vol] 26.4 mmol/L Normal 21.0-32.0 [facility] Comment on above: Performed By: #### D ATBMP #### [facility] [address] [address] [address] Gemma Sanchez Creatinine [Mass/Vol] 0.75 mg/dL Normal 0.55-1.02 [facility] Comment on above: Performed By: #### D ATBMP #### [facility] [address] [address] [address] Gemma Sanchez EGFR-AF SIERRA LEONEAN >60 Normal >=60 [facility] Comment on above: Performed By: #### D ATBMP #### [facility] [address] [address] [address] Gemma Sanchez EGFR-NON AF SIERRA LEONEAN >60 Normal >=60 [facility] Comment on above: Performed By: #### D ATBMP #### [facility] [address] [address] [address] Gemma Sanchez Glucose [Mass/Vol] 98 mg/dL Normal 74-106 [facility] Comment on above: Performed By: #### D ATBMP #### [facility] [address] [address] [address] Gemma Sanchez HDL NORMAL > or = 60 mg/dl - LO W CARDIOVASCULAR RISK <40 mg/dl - HIGH CARDIOVASCULAR RISK Normal [facility] Comment on above: Performed By: #### D ATBMP #### [facility] [address] [address] [address] Gemma Sanchez LDL CALC NORMAL SEE BELOW Normal [facility] Comment on above: Result Comment: <100 mg/dl OPTIMAL 100 - 129 mg/dl NEAR OR ABOVE OPTIMAL 130 - 159 mg/dl BORDERLINE HIGH 160 - 189 mg/dl HIGH >190 mg/dl VERY HIGH Performed By: #### D ATBMP #### [facility] [address] [address] [address] Gemma Sanchez Potassium [Moles/Vol] 4.1 mmol/L Normal 3.5-5.1 [facility] Comment on above: Performed By: #### D ATBMP #### [facility] [address] [address] [address] Gemma Sanchez Sodium [Moles/Vol] 143 mmol/L Normal 136-145 [facility] Comment on above: Performed By: #### D ATBMP #### [facility] [address] [address] [address] Gemma Sanchez Triglyceride [Mass/Vol] 109 mg/dL Normal <=150 [facility] Comment on above: Performed By: #### D ATBMP #### [facility] [address] [address] [address] Gemma Sanchez Urea nitrogen [Mass/Vol] 15.0 mg/dL Normal 7.0-18.0 [facility] Comment on above: Performed By: #### D ATBMP #### [facility] [address] [address] [address] Gemma Sanchez Urea nitrogen/Creatinin e [Mass ratio] 20.0 mg/mg Normal [facility] Comment on above: Performed By: #### D ATBMP #### [facility] [address] [address] [address] Gemma Sanchez VLDL CALC 21.8 mg/dL Normal [facility] Comment on above: Performed By: #### D [facility] #### [facility] [address] [address] [address] Gemma Sanchez MG MAMM SCREEN 3D JENNY CADon 08-25-2022 MG MAMM SCREEN 3D JENNY CAD Patient: ANTOINE YEE Exam Date: 08/25/2022 : 1955 Gender:F Ordering : GENEVIEVE PANTOJA Admission #: [id number] Family : Order #: [id number] CLICK HERE TO VIEW EXAM RADIOLOGY REPORT [...] ovarian cancer at age 74. LOCATION: [facility] BREAST COMPOSITION: Scattered areas fibroglandular density. [...] Zavala MD on 08/25/2022 at 12:[address] [facility] ECHOCARDIO M/2D COMPLETEon 1 ECHOCARDIO M/2D COMPLETE Patient: ANTOINE YEE Exam Date: 07/31/2022 : 1955 Gender:F Ordering : DR TESS MOORE M.D. Admission #: [id number] Family : Order #: [id number] CLICK HERE TO VIEW EXAM ECHOCARDIOGRAM REPORT [...] Jack M.D. on 07/31/2022 at 20:48 Normal [facility] STRESS/REST MULTIon 07-31 ND STRESS/REST MULTI Patient: ANTOINE YEE Exam Date: 07/31/2022 : 1955 Gender:F Ordering : DR TESS MOORE M.D. Admission #: [id number] Family : Order #: [id number] CLICK HERE TO VIEW EXAM RADIOLOGY REPORT [...] Zavala MD on 07/31/2022 at 14:[address] [facility] Vital Signs Date Time Vital Sign Value Performing Clinician Facility 06-30-2025 09:52-0400 Body height 149.86 cm Tess Moore MD Work Phone: [facility] 06-30-2025 09:52-0400 Body mass index (BMI) [Ratio] 29.1 kg/m2 Tess Moore MD Work Phone: [facility] 06-30-2025 09:52-0400 Body weight 65.37 kg Tess Moore MD Work Phone: [facility] 06-30-2025 09:52-0400 Diastolic blood pressure 70 mm[Hg] Tess Moore MD Work Phone: [facility] 06-30-2025 09:52-0400 Heart rate 61 /min Tess Moore MD Work Phone: [facility] 06-30-2025 09:52-0400 Systolic blood pressure 135 mm[Hg] Tess Moore MD Work Phone: [facility] 03-08-2025 08:11-0400 Body height 151.1 cm [facility] 03-08-2025 08:11-0400 Body mass index (BMI) [Ratio] 28.6 kg/m2 [facility] 03-08-2025 08:11-0400 Body weight 65.32 kg [facility] 03-08-2025 08:11-0400 Diastolic blood pressure 80 mm[Hg] [facility] [employer] [facility] 03-08-2025 08:11-0400 Systolic blood pressure 136 mm[Hg] [facility] 12-19-2024 08:35-0500 Body temperature 98.42 [degF] XU RAGHAVENDRA [facility] 12-19-2024 08:35-0500 Diastolic blood pressure 79 mm[Hg] XU RAGHAVENDRA [facility] 12-19-2024 08:35-0500 Heart rate 61 /min XU RAGHAVENDRA [facility] 12-19-2024 08:35-0500 Respiratory rate 16 /min XU RAGHAVENDRA [facility] 12-19-2024 08:35-0500 Systolic blood pressure 149 mm[Hg] XU RAGHAVENDRA [facility] 12-14-2024 09:31-0500 Body height 149.86 cm [facility] 12-14-2024 09:31-0500 Body mass index (BMI) [Ratio] 29.5 kg/m2 [facility] 12-14-2024 09:31-0500 Body weight 66.22 kg [facility] 12-14-2024 09:31-0500 Diastolic blood pressure 76 mm[Hg] [facility] 12-14-2024 09:31-0500 Heart rate 56 /min [facility] 12-14-2024 09:31-0500 Systolic blood pressure 175 mm[Hg] [facility] 11-21-2024 08:38-0500 Diastolic blood pressure 68 mm[Hg] XU RAGHAVENDRA [facility] 11-21-2024 08:38-0500 Heart rate 65 /min XU RAGHAVENDRA [facility] 11-21-2024 08:38-0500 Respiratory rate 16 /min XU RAGHAVENDRA [facility] 11-21-2024 08:38-0500 Systolic blood pressure 132 mm[Hg] XU RAGHAVENDRA [facility] 09-01-2024 08:07-0500 Blood Pressure Location Mandi Galea [facility] 09-01-2024 08:07-0500 Body temperature 98.6 [degF] Mandi Galea [facility] 09-01-2024 08:07-0500 Diastolic blood pressure 71 mm[Hg] Mandi Galea [facility] 09-01-2024 08:07-0500 Heart rate 60 /min Mandi Galea [facility] 09-01-2024 08:07-0500 Respiratory rate 16 /min Mandi Galea [facility] 09-01-2024 08:07-0500 Systolic blood pressure 133 mm[Hg] Mandi Galea [facility] 06-02-2024 12:49-0400 Blood Pressure Location Mandi Galea [facility] 06-02-2024 12:49-0400 Body temperature 96.8 [degF] Mandi Galea [facility] 06-02-2024 12:49-0400 Diastolic blood pressure 68 mm[Hg] Mandi Galea [facility] 06-02-2024 12:49-0400 Heart rate 64 /min Mandi Galea [facility] 06-02-2024 12:49-0400 Systolic blood pressure 128 mm[Hg] Manid Galea [facility] 02-03-2024 09:32-0400 Body height 149.86 cm [facility] 02-03-2024 09:32-0400 Body mass index (BMI) [Ratio] 31.7 kg/m2 [facility] 02-03-2024 09:32-0400 Body weight 71.21 kg [facility] 02-03-2024 09:32-0400 Diastolic blood pressure 72 mm[Hg] [facility] 02-03-2024 09:32-0400 Heart rate 76 /min [facility] 02-03-2024 09:32-0400 Systolic blood pressure 132 mm[Hg] [facility] Encounters Encounter Date Encounter Type Care Provider Facility Start: 07-19-2025 ambulatory Lotus Medellin Facility:[facility] [place] Start: 06-30-2025 End: 06-30-2025 ambulatory Tess Moore MD Work Phone: [facility] Work Phone: Start: 06-30-2025 End: 06-30-2025 Patient encounter procedure Tess Moore MD -[facility] Work Phone: Start: 05-15-2025 End: 05-15-2025 ambulatory XU MABRY Facility:[facility] [place] Start: 05-15-2025 End: 05-15-2025 Patient encounter procedure XU MABRY [facility] Start: 03-08-2025 End: 03-08-2025 Manual pelvic examination [facility] [employer] [facility] Work Phone: Start: 03-08-2025 End: 03-08-2025 Patient encounter procedure [facility] [employer] [facility] Comment on above: Encounter for breast and pelvic examination (Primary Dx); Screening for osteoporosis; Standardized adult depression screening tool completed Start: 03-08-2025 End: 03-08-2025 ambulatory [facility] Start: 03-08-2025 Encounter for gynecological examination (general) (routine) without abnormal findings [facility] Start: 01-10-2025 End: 01-10-2025 ambulatory Geraldo HOWARD Facility:CD:[id number] Start: 12-19-2024 End: 12-19-2024 ambulatory XU MABRY Facility:[facility] Start: 12-19-2024 End: 12-19-2024 Lab Drop off XU MABRY [facility] Start: 12-19-2024 End: 12-19-2024 ambulatory XU MABRY Facility:[facility] Start: 12-19-2024 End: 12-19-2024 Patient encounter procedure XU MABRY [facility] Start: 12-14-2024 Patient encounter procedure Tess Moore MD Work Phone: [facility] Start: 12-14-2024 End: 12-14-2024 ambulatory [facility] Work Phone: Start: 12-14-2024 End: 12-14-2024 Patient encounter procedure [facility] Work Phone: Start: 11-21-2024 End: 11-21-2024 ambulatory XU E RAGHAVENDRA Facility:[facility] Start: 11-21-2024 End: 11-21-2024 Lab Drop off XU E RAGHAVENDRA [facility] Start: 11-21-2024 End: 11-21-2024 ambulatory XU E RAGHAVENDRA Facility:[facility] Start: 11-21-2024 End: 11-21-2024 Patient encounter procedure XU Hgigins RAGHAVENDRA [facility] Start: 09-01-2024 End: 09-01-2024 ambulatory Mandi J Galea Facility:[facility] Start: 09-01-2024 End: 09-01-2024 Lab Drop off Mandi J Galea [facility] Start: 09-01-2024 End: 09-01-2024 ambulatory Mandi J Galea Facility:[facility] [place] Start: 09-01-2024 End: 09-01-2024 Patient encounter procedure Mandi J Galea [facility] Start: 06-02-2024 End: 06-02-2024 ambulatory Mandi J Galea Facility:[facility] Start: 06-02-2024 End: 06-02-2024 Lab Drop off Mandi J Galea [facility] Start: 06-02-2024 End: 06-02-2024 ambulatory Mandi J Galea Facility:[facility] Start: 06-02-2024 End: 06-02-2024 Patient encounter procedure Mandi J Galea [facility] Start: 05-10-2024 ambulatory Mandi Galea Facility:[facility] Start: 02-03-2024 End: 02-03-2024 ambulatory [facility] Work Phone: Start: 02-03-2024 End: 02-03-2024 [facility] Work Phone: Start: 03-02-2023 End: 03-03-[address] TESS MOORE Facility:[facility] Start: 08-25-2022 End: 08-26-[address] TESS MOORE Facility:[facility] Start: 07-31-2022 End: 08-01-[address] TESS MOORE Facility:[facility] Start: 07-02-2022 End: 07-03-[address] TESS MOORE Facility:[facility] Procedures Date Procedure Procedure Detail Performing Clinician Start: 03-08-2025 Adult depression scr eening assessment [facility] [employer] Start: 08-25-2022 Mammography [facility] Midwi fe Breast surgery (qual ifier value) Mandi Galea Colonoscopy Mandi Galea Cystourethroscopy wi th dilation of urethral stricture Mandi Galea Hysterectomy Mandi Galea Urinary bladder stru cture (body structure) Mandi Galea Plan of Treatment Date Care Activity Detail Author Start: 03-08-2026 Adult BMI Screening Adult BMI Screen ing [facility] Start: 03-08-2026 Depression Screening Depression Scre ening [facility] Start: 03-08-2026 Tobacco [facility]ening [facility] Start: 06-19-2025 Influenza vaccination Influenza Vacc [facility]e [facility] Start: 03-08-2025 End: 03-08-2026 DXA Skeletal system Views for bone density Dexa scan central skeletal Imaging Routine Screening for osteoporosis Expected: 03/08/2025, Expires: 03/08/2026 [facility] Work Phone: Comment on above: Expected: 03/08/2025 , Expires: 03/08/2026 Start: 06-19-2024 COVID-19 Vaccine ( season) COVID-19 Vaccine () [facility] Start: 08-25-2023 Screening for malign ant neoplasm of breast Mammogram [facility] Start: 2019 Fall Risk Screening Fall Risk Screen ing [facility] Start: 1973 DTaP,Tdap and Td Vaccines (1 - Tdap) DTaP,Tdap and Td Vaccines (1 - Tdap) [facility] Start: 01-23-1972 Adult BMI Follow Up Plan Adult BMI Follow Up Plan [facility] Comprehensive metabo lic 1999 panel - Serum or Plasma [facility] Comprehensive metabo lic 1999 panel - Serum or Plasma [facility] DXA Skeletal system.axial Views for bone density [facility] US.doppler Carotid arteries - bilateral [facility] Immunizations Immunization Date Immunization Notes Care Provider Fa cility 09-02-2022 SARS-CoV-2 (COVID-19 ) [id number] Mandi Galea [facility] 03-11-2022 SARS-CoV-2 mRNA (hqapqvqlgek-qajd-bkirz se) vaccine Mandi Galea [facility] 08-18-2021 SARS-CoV-2 (COVID-19 ) mRNA BNT-162b2 vax Mandi Galea [facility] 01-25-2021 SARS-CoV-2 (COVID-19 ) mRNA BNT-162b2 vax Mandi Galea [facility] 01-03-2021 SARS-CoV-2 (COVID-19 ) mRNA BNT-162b2 vax Mandi Galea [facility] 06-21-2019 zoster vaccine recombinant Mandi Galea [facility] 04-10-2019 pneumococcal conjuga te vaccine, 13 valent Mandi Galea [facility] 04-10-2019 zoster vaccine recombinant Mandi Galea [facility] Payers Date Payer Category Payer Medicare HMO [employer] ember [id number] 1960 Medicare [id number] 1960 Self-pay [id number] 1955 Unknown [id number]. 593 1955 Unknown [id number]. 593 1955 Unknown [id number] [id number]. 593 1955 Unknown [id number] [id number]. 593 1955 Unknown [id number] 2.16.840.1.313772.3.579.2. 727 1955 Unknown [id number] 2.16.840.1.480816.3.579.2. 727 1955 Unknown [id number] 2.16.840.1.867422.3.579.2. 727 1955 Unknown [id number] 2.16.840.1.488504.3.579.2. 727 1955 Unknown [id number] 2.16.840.1.494587.3.579.2. 727 1955 Unknown [id number] 2.16.840.1.299403.3.579.2. 1286 1955 Unknown [id number] 2.16.840.1.575914.3.579.2. 727 1955 Unknown [id number] 2.16.840.1.214440.3.579.2. 727 1955 Unknown [id number] 2.16.840.1.390923.3.579.2. 727 Medicare [id number] Private Health Insurance [employer] [id number] Self-pay Self Pay [id number] Unknown [id number]. 593 Social History Date Type Detail Facility Start: 01-28-2024 End: 05-15-2025 Tobacco smoking status NHIS Never smoked tobacco (finding) [facility] Start: 1955 Sex Assigned At Female [facility] Tobacco smoking status Never [facility] Start: 11-29-2020 End: 03-03-2023 Sex Assigned At Female [facility] Start: 05-24-2015 End: 12-14-2024 Sex Female (finding) [facility] Start: 03-03-2023 Tobacco use and exposure Smoke less tobacco non-user [facility] Start: 03-08-2025 Alcoholic beverage intake Current drinker of alcohol (finding) [facility] Start: 11-29-2020 End: 03-03-2023 History of Social function [facility] How often to you hav e a drink containing alcohol? 2-4 times a month [facility] How many standard dr inks containing alcohol do you have on a typical day? 1 or 2 [facility] How often do you hav e 6 or more drinks on 1 occasion? Never [facility] Start: 03-03-2023 Alcohol Comment social [facility] Start: 1955 Sex assigned at Not on file P [facility] Sexual Orientation [facility] Functional Status Date Assessment Result Facility 12-19-2024 Functional Status N/A [facility] 11-21-2024 Functional Status N/A [facility] 09-01-2024 Functional Status N/A [facility] 06-02-2024 Functional Status N/A [facility] Clinical Notes 03-02-2023 to 05-15-2025 Genevieve Ashley, 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 ?Take skot-uok-witywiy or prescription medicines. ?Eat foods that are high in fiber, such as beans, whole grains, and fresh fruits and vegetables. ?Limit foods that are high in fat and processed sugars, such as fried or sweet foods. General instructions Take umoe-zne-fxuazxp and prescription medicines only as told by [...] the muscles that help control urination. Take hopc-dos-lxshvmq and prescription medicines only as told by your health care provider. Contact a health care provider if your symptoms do not improve or get worse. This information is not intended to replace advice given to you by your health care provider. Make sure you discuss any questions you have with your health care provider. Document Revised: 05/10/2021 Document Reviewed: 05/10/2021 [employer] Patient Education 2023 MeetMe. Follow Up Care 01/12/2025 14:44:21 With:XU MABRY PA-C, URL Address: [address] [address] When:Within 3 Month(s) [facility] 05-15-2025 Note Patient Education Urology Urinary Frequency, Adult [...] keep your urine pale yellow. ? Take chal-qqb-irdxeqi or prescription medicines. ? Eat foods that are high in fiber, such as beans, whole grains, and fresh fruits and vegetables. ? Limit foods that are high in fat and processed sugars, such as fried or sweet foods. General instructions ??? Take alaf-oyu-gpiavyx and prescription medicines only as told by [...] muscles that help control urination. ??? Take iyst-zsy-alpmogd and prescription medicines only as told by your health care provider. ??? Contact a health care provider if your symptoms do not improve or get worse. This information is not intended to replace advice given to you by your health care provider. Make sure you discuss any questions you have with your health care provider. Document Revised: 05/10/2021 Document Reviewed: 05/10/2021 [employer] Patient Education ? 2023 MeetMe. [facility] 03-08-2025 History of Present illness Narrative Jose Carlos Yee is a pleasant 70 y.o. female who presents for medicare pelvic and clinical breast exam screening for cancer. The patient has no complaints today. The patient is sexually active. Denies painful intercourse or pelvic pain. Patient denies post-menopausal vaginal bleeding.. Patient denies domestic violence. The patient is not taking hormone replacement therapy. 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 4 vaginal deliveries Smoker no Dexa Scan: 2020 [facility] Osteopenia Colonoscopy: 2018 PHQ-9 screenin The following portions of the patient's history were reviewed and updated as appropriate: allergies, current medications, past family history, past medical history, past social history, past surgical history, problem list, and medication reconciliation was completed including current medication and post discharge medication. Review of Systems Constitutional: Negative. Respiratory: Negative. Negative for chest tightness and shortness of breath. Cardiovascular: Negative. Negative for chest pain and palpitations. Gastrointestinal: Negative. Negative for constipation, diarrhea, nausea and vomiting. Endocrine: Negative. Genitourinary: Negative. Negative for dyspareunia, pelvic pain and vaginal bleeding. Musculoskeletal: Negative. Skin: Negative. Allergic/Immunologic: Negative. Neurological: Negative. Hematological: Negative. Psychiatric/Behavioral: Negative. Objective Vitals: 03/08/25 0811 BP: 136/80 Body mass index is 28.6 kg/m . Physical Exam Vitals and nursing note reviewed. Constitutional: Appearance: Normal appearance. HENT: Head: Normocephalic and atraumatic. Cardiovascular: Rate and Rhythm: Normal rate and regular rhythm. Pulses: Normal pulses. Heart sounds: Normal heart sounds. Pulmonary: Effort: Pulmonary effort is normal. Breath sounds: Normal breath sounds. Chest: Breasts: Breasts are symmetrical. Right: Normal. No mass, skin change or tenderness. Left: Normal. No mass, skin change or tenderness. Abdominal: General: Bowel sounds are normal. Palpations: Abdomen is soft. Genitourinary: General: Normal vulva. Labia: Right: No rash or lesion. Left: No rash or lesion. Vagina: Normal. Cervix: Normal. Uterus: Normal. Not enlarged and not tender. Adnexa: Right adnexa normal and left adnexa normal. Right: No mass, tenderness or fullness. Left: No mass, tenderness or fullness. Musculoskeletal: General: Normal range of motion. Cervical back: Normal range of motion and neck supple. Skin: General: Skin is warm and dry. Neurological: Mental Status: She is alert and oriented to person, place, and time. Psychiatric: Mood and Affect: Mood normal. Speech: Speech normal. Behavior: Behavior normal. Thought Content: Thought content normal. Judgment: Judgment normal. Antoine was seen today for gynecologic exam. Diagnoses and all orders for this visit: Encounter for breast and pelvic examination Screening for osteoporosis - Dexa scan central skeletal; Future Standardized adult depression screening tool completed 1. Discussed SBE. 2. Discussed taking a multivitamin. 3. Discussed Calcium and Vitamin D for prevention of osteoporosis. 4. Discussed need for yearly mammograms, ordered by PCP. 5. Patient to discuss colon cancer screening recommendations with PCP. 6. Educational material provided. 7. Questions answered. 8. Return for Medicare pelvic / breast exam and / or PRN. HIREN Melton APRN-ALDEN Humphries 03/08/25 0846 documented in this encounter [facility] 12-19-2024 Hospital Discharge instructions Patient Education 12/19/2024 [...] provider. Document Revised: 05/05/2023 Document Reviewed: 05/05/2023 [employer] Patient Education 2023 [employer] Inc. Follow Up Care 11/21/2024 09:10:31 With:[facility] Address: [address] 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 [facility] 12-19-2024 Evaluation + Plan note Diagnostic Tests PendingUrine Culture 12/19/24 [facility] 11-21-2024 Hospital Discharge instructions Patient Education 11/21/2024 [...] to keep your urine pale yellow. ?Take pede-nas-pvlxbrw or prescription medicines. ?Eat foods that are high in fiber, such as beans, whole grains, and fresh fruits and vegetables. ?Limit foods that are high in fat and processed sugars, such as fried or sweet foods. General instructions Take vkpq-eat-mzvupzs and prescription medicines only as told by [...] the muscles that help control urination. Take bbqy-wks-fltiqxy and prescription medicines only as told by your health care provider. Contact a health care provider if your symptoms do not improve or get worse. This information is not intended to replace advice given to you by your health care provider. Make sure you discuss any questions you have with your health care provider. Document Revised: 05/10/2021 Document Reviewed: 05/10/2021 [employer] Patient Education 2023 MeetMe. Follow Up Care 09/09/2024 13:50:45 With:XU MABRY PA-C, URL Address: [address] [place] [address] When:Within 1 Month(s) [facility] 11-21-2024 Note Patient Education Urology Urinary Frequency, [...] keep your urine pale yellow. ? Take nzex-zrf-wlzglao or prescription medicines. ? Eat foods that are high in fiber, such as beans, whole grains, and fresh fruits and vegetables. ? Limit foods that are high in fat and processed sugars, such as fried or sweet foods. General instructions ??? Take wikb-iko-vyvtomw and prescription medicines only as told by [...] muscles that help control urination. ??? Take ymgv-xgg-rziaeda and prescription medicines only as told by your health care provider. ??? Contact a health care provider if your symptoms do not improve or get worse. This information is not intended to replace advice given to you by your health care provider. Make sure you discuss any questions you have with your health care provider. Document Revised: 05/10/2021 Document Reviewed: 05/10/2021 [employer] Patient Education ? 2023 MeetMe. [facility] 09-01-2024 Evaluation + Plan note Diagnostic Tests PendingUrine Culture 09/01/24 [facility] 09-01-2024 Hospital Discharge instructions Patient Education 09/01/2024 [...] Treatment for this condition includes: Antibiotic medicine. Byyy-dlj-upqkibm medicines to treat discomfort. Drinking enough water [...] Follow these instructions at home: Medicines Take cnnr-fxs-lluasdi and prescription medicines only as told by [...] provider. Document Revised: 05/12/2021 Document Reviewed: 05/17/2021 [employer] Patient Education 2023 MeetMe. Follow Up Care 06/02/2024 13:54:11 With:Mandi Salinas, URL Address: When:3 months Comments:w/ FRANTZ [facility] 09-01-2024 Note Patient Education Obstetrics and [...] this condition includes: ??? Antibiotic medicine. ??? Wckk-ooh-piyflrt medicines to treat discomfort. ??? Drinking enough [...] these instructions at home: Medicines ??? Take uxif-riz-iufjarn and prescription medicines only as told by [...] sure you di (more content not included)... [facility] 06-02-2024 Hospital Discharge instructions Patient Education 06/02/2024 [...] to keep your urine pale yellow. ?Take vupb-efw-stghouc or prescription medicines. ?Eat foods that are high in fiber, such as beans, whole grains, and fresh fruits and vegetables. ?Limit foods that are high in fat and processed sugars, such as fried or sweet foods. General instructions Take ulgv-las-ekdwkhk and prescription medicines only as told by [...] the muscles that help control urination. Take ihiu-nka-suivvpj and prescription medicines only as told by your health care provider. Contact a health care provider if your symptoms do not improve or get worse. This information is not intended to replace advice given to you by your health care provider. Make sure you discuss any questions you have with your health care provider. Document Revised: 05/10/2021 Document Reviewed: 05/10/2021 [employer] Patient Education 2022 MeetMe. Follow Up Care 05/10/2024 08:27:04 With:Abdi HUBBARD, JONATHAN Covarrubias Address: When:3 months [facility] 06-02-2024 Note Patient Education Urology Urinary [...] keep your urine pale yellow. ? Take selx-dxr-uyazele or prescription medicines. ? Eat foods that are high in fiber, such as beans, whole grains, and fresh fruits and vegetables. ? Limit foods that are high in fat and processed sugars, such as fried or sweet foods. General instructions ? Take khrq-lra-aopqjvr and prescription medicines only as told by [...] muscles that help control urination. ? Take wblg-jcs-itfdqni and prescription medicines only as told by your health care provider. ? Contact a health care provider if your symptoms do not improve or get worse. This information is not intended to replace advice given to you by your health care provider. Make sure you discuss any questions you have with your health care provider. Document Revised: 05/10/2021 Document Reviewed: 05/10/2021 [employer] Patient Education ? 2022 MeetMe. [facility] 03-02-2023 Note PROCEDURE: XR SHOULD ER RT [...] authenticated by: DOMINGA HERNANDES Date: 2023-03-02 07:45 [facility] Evaluation + Plan note Future Appointments Appointment Date:09/01/2024 08:00:00 AM Scheduled Provider:Mandi Salinas Location:[facility] Appointment Type:URO Office Visit [facility] Evaluation + Plan note Future Appointments Appointment Date:09/01/2024 08:00:00 AM Scheduled Provider:Mandi Salinas Location:[facility] Appointment Type:URO Office Visit Diagnostic Tests PendingUrine Culture 06/02/24 [facility] Evaluation + Plan note Future Appointments Appointment Date:12/19/2024 08:20:00 AM Scheduled Provider:XU MABRY PA-C Location:[facility] Appointment Type:URO Office Visit Diagnostic Tests PendingUrine Culture 11/21/24 [facility] Evaluation + Plan note Future Appointments Appointment Date:12/19/2024 08:20:00 AM Scheduled Provider:XU MABRY PA-C Location:[facility] Appointment Type:URO Office Visit [facility] Evaluation + Plan note Future Appointments Appointment Date:07/19/2025 08:00:00 AM Scheduled Provider:Lotus Medellin PA-C Location:[facility] Appointment Type:URO Office Visit [facility] Evaluation note Diagnosis Onset Date Carotid bruit acute Hypertension acute Osteoporosis acute Post herpetic neuralgia acut e Retinopathy acute [facility] Work Phone: Evaluation noteNo assessment information available [facility] Work Phone: Evaluation note* Diagnosis Encounter for breast and pelvic examination- Primary Screening for osteoporosis Special screening for osteoporosis Standardized adult depression screening tool completed [facility] Diagnosis Onset Date Resolution Status Admit Date Hypertension acute June 302024 9:46am [facility] Work Phone: Hospital course Narrative No data available for this section [facility] Hospital Discharge instructions No data available for this section [facility] Instructions* Attachments The following attachments cannot be sent through Care Everywhere. * Calcium and vitamin D for bone health ([place]) documented [facility] No data available for this section [facility] reason for referral (narrative)No reason for referral information availableFire[facility] Work Phone: Summary Purpose Family History Relationship [...] Admit Date wellness December 14, 2024 9:04am Chief Complaint Admit Date Discuss BP June 30, 2025 9:46am Reason for Visit Admit Date Hypertension June 30, 2025 9:46am Additional Source Comments INFORMATION SOURCE (unrecogn ized section and content) DATE CREATED AUTHOR 03/03/2023 [facility] DATE CREATED AUTHOR AUTHOR'S ORGANIZ ATION 06/05/2024 [facility] DATE CREATED AUTHOR AUTHOR'S ORGANIZ ATION 09/03/2024 [facility] DATE CREATED AUTHOR AUTHOR'S ORGANIZ ATION 09/05/2024 [facility] DATE CREATED AUTHOR AUTHOR'S ORGANIZ ATION 09/12/2024 [facility] DATE CREATED AUTHOR AUTHOR'S ORGANIZ ATION 11/25/2024 [facility] DATE CREATED AUTHOR AUTHOR'S ORGANIZ ATION 12/20/2024 [facility] DATE CREATED AUTHOR AUTHOR'S ORGANIZ ATION 12/21/2024 [facility] DATE CREATED AUTHOR AUTHOR'S ORGANIZ ATION 12/23/2024 [facility] DATE CREATED AUTHOR AUTHOR'S ORGANIZ ATION 03/14/2025 [facility] DATE CREATED AUTHOR AUTHOR'S ORGANIZ ATION 05/17/2025 [facility] Care Teams [...] December 14, 2024 End: December 14, 2024 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 Service 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 Relationship Specialty Start Date End Date Tess Moore MD [address] [place] [id number] PCP - General Family Medicine 07/27/19 Team Status: Inactive Member Role Status Dates Tess Moore MD Primary Care Provider Active Start: June 30, 2025 End: June 30, 2025 Tess Moore MD Attending Provider Active St art: June 30, 2025 End: June 30, 2025 Goals (unrecognized section and content) Goals may [...] this section No data available for this sectionNot on filedocumented as of this encounter No data available for this sectionGoals may be documented in an alternate section Reason for Visit (unrecogniz ed section and content) Reason Comments Gynecologic Exam FOR RECORDS PERTAINING TO PATIENTS WHO ARE [...] BE BASED ON THE PRIMARY CLINICAL RECORDS. [facility]. provides no warranty or guarantee of the accuracy or completeness of information in this document.
--- OUTSIDE RECORDS SUMMARY | 2025-07-08 06:49 | XMS_ITS | Clinical Summary ---
Author Organization [employer] tem Address [id number] [address] [place] [address] Care Team Providers Care Battery Charger Name Role Phone Tess Kennedy MD Primary Care Provider [phone] Allergies No known active allergies Medications alendronate (FOSAMAX) 70 mg tablet Take 1 tablet (70 mg total) by mouth every 7 days. 07/24/2019 Active calcium carbonate (CALCIUM 500 ORAL) Take 2,000 mg by mouth in the morning. Active cholecalciferol, vitamin D3, (VITAMIN D3) 5,000 units tablet Take 1 tablet (5,000 Units total) by mouth in the morning. Active aspirin 81 mg Take 1 tablet (81 mg total) by mouth in the morning. Active Active Problems Problem Noted Date Diagnosed Date Family history of ovarian cancer 03/03/2023 Overview (03/03/2023): Pt.'s mom and pt. States BRCA testing negative Family History Medical History Relation Name Comments Heart disease Father Ovarian cancer Mother Breast cancer Sister 1 Heart attack Sister 2 x2 Colon cancer Neg Hx Pancreatic cancer Neg Hx Uterine cancer Neg Hx Relation Name Status Comments Father Mother Sister 1 Sister 2 Alive Social History Tobacco Use Types Packs/Day Years Used Date Smoking Tobacco: Never Smokeless Tobacco: Never Alcohol Use Standard Drinks/Week Comments Yes 0 (1 standard drink = 0.6 oz pur e alcohol) social AUDIT-C Answer Date Recorded Q1: How often do you have a drink containing alc ohol? 2-4 times a month 03/03/2023 Q2: How many drinks containi ng alcohol do you have on a typical day when you are drinking? 1 or 2 03/03/2023 Q3: How often do you have si x or more drinks on one occasion? Never 03/03/2023 PHQ-2 Answer Date Recorded Total Score 0 03/08/2025 Childcare Answer Date Recorded Childcare Unknown 03/30/2019 Employment Answer Date Recorded Employment Unknown 03/30/2019 Hunger Screening Answer Date Recorded Within the past 12 months we worried whether our food would run out before we got money to buy more. Never True 03/08/2025 Within the past 12 months th e food we bought just didn't last and we didn't have money to get more. Never True 03/08/2025 Purpose - Life Answer Date Recorded Purpose and direction in life Unknown Comments No Sex and Gender Information Value Date Recorded Sex Assigned at Not on file Legal Sex Female 11:27 AM EDT Gender Identity Not on file Sexual Orientation Not on file Last Filed Vital Signs Vital Sign Reading Time Taken Comments Blood Pressure 136/80 03/08/2025 8:11 AM EDT Pulse 75 07/28/2019 9:50 AM EDT Temperature 37 C (98.6 F) 07/28/2019 8:46 AM EDT Respiratory Rate 13 07/28/2019 9:50 AM EDT Oxygen Saturation 91% 07/28/2019 10:04 AM EDT Inhaled Oxygen Concentration - - Weight 65.3 kg (144 lb) 03/08/2025 8:11 AM EDT Height 151.1 cm (4' 11.5 ) 03/08/2025 8:11 AM ED T Body Mass Index 28.6 03/08/2025 8:11 AM EDT Plan of Treatment Health Maintenance Due Date Last Done Comments Adult BMI Follow Up Plan 01/23/1972 DTaP,Tdap and Td Vaccines (1 - Tdap) 1973 Fall Risk Screening 2019 Mammogram 08/25/2023 08/25/2022 COVID-19 Vaccine (2024-2 6 season) 2025 09/02/2022, 03/11/2022, 08/18/2021, Additional history exists Influenza Vaccine 06/19/2025 Adult BMI Screening 03/08/2026 03/08/2025 Depression Screening 03/08/2026 03/08/2025 Tobacco Screening 03/08/2026 03/08/2025 Zoster (Shingles) Vaccine Completed 06/21/2019, Medical Devices Not on file Insurance [employer] MEDICARE Care Teams Battery Charger Relationship Specialty Start Date End Date Tess Kennedy MD [facility] [place] [address] PCP - General Family Medicine 07/27/19
[2025-07-08 08:07] LABS: Hematocrit 40.8 % (36.0-48.0); Hemoglobin 13.7 g/dL (12.0-16.0); Immature Granulocytes Abs Auto 0.02 10^3/uL (0.00-0.03); Immature Granulocytes Pct Auto 0.4 % (0.0-0.5); Lymphocytes Absolute Auto 1.2 10^3/uL (1.2-3.8); Mean Corpuscular HGB Conc 33.6 g/dL (29.9-35.2); Mean Corpuscular Hemoglobin 30.6 pg (26.7-34.0); Mean Corpuscular Volume 91.1 fL (81.0-99.0); Platelet Count 267 10^3/uL (150-450); Red Blood Count 4.48 10^6/uL (4.20-5.40); White Blood Count 4.8 10^3/uL (4.0-11.0)
[2025-07-08 08:53] LABS: Alanine Aminotransferase 23 U/L (14-59); Albumin Globulin Ratio 1.0; Albumin Level 3.8 g/dL (3.4-5.0); Alkaline Phosphatase 50 U/L (46-116); Anion Gap 13.5; Aspartate Amino Transferase 18 U/L (15-37); Blood Urea Nitrogen 16.0 mg/dL (7.0-18.0); Calcium 9.2 mg/dL (8.5-10.1); Carbon Dioxide 27.3 mmol/L (21.0-32.0); Chloride 106 mmol/L (98-107); Cholesterol 208 mg/dL (<=200); Estimated GFR (African America >60 (>=60 mL/min/1.73m^2); Estimated GFR (Non-African Ame >60 (>=60 mL/min/1.73m^2); Globulin 3.9 g/dL; Glucose 82 mg/dL (74-106); HDL Cholesterol 73 mg/dL (40-60); Potassium 3.8 mmol/L (3.5-5.1); Sodium 143 mmol/L (136-145); Total Protein 7.7 g/dL (6.4-8.2); Triglycerides 66 mg/dL (<=150); VLDL CHOLESTEROL 13.2 mg/dL
== END 2025-07-08 06:45 | disposition home or self-care (01) ==
PROVIDERS: PCP Family Medicine; Visit Provider Family Medicine
DX: I10 Essential (primary) hypertension (principal)
CPT/HCPCS: 36415; 80053; 80061; 82043; 82570; 85025

== ENCOUNTER 2025-09-20 06:55 | Outpatient (OUT) | payer MEDICARE, SELFPAY ==
--- OUTSIDE RECORDS SUMMARY | 2025-09-20 06:58 | XMS_ITS | Clinical Summary ---
Author Organization [facility] Healthcare Address [address] [place] [address] Care Team Providers Care Textile Screen Maker Name Role Phone Unavailable Primary Care Provider Unavailabl e Social History Tobacco UseTypesPacks/DayYears UsedDateSmoking Tobacco: Never Assessed CommentsUnknownSex and Gender InformationValueDate RecordedSex Assigned at Not on fileLegal IgyVowcyz82/15/2023 7:22 PM EDTGender IdentityNot on fileSexual OrientationNot on file Last Filed Vital Signs Vital SignReadingTime TakenCommentsBlood Rqkyntkg475/8209 12:00 PM EDT Pulse--Temperature--Respiratory Rate--Oxygen Saturation--Inhaled Oxygen Concentration--Bjfyag09.8 kg (165 lb)06/01/2020 12:00 PM WQZXjuaeb914.9 cm (4' 11 )06/01/2020 12:00 PM EDTBody Mass Index33.3308 12:00 PM EDT Plan of Treatment Not on file
--- OUTSIDE RECORDS SUMMARY | 2025-09-20 06:58 | XMS_ITS | Clinical Summary ---
Author Organization Project [id number] tem Address [id number] [address] [place] [address] Care Team Providers Care Retrieval Specialist Name Role Phone Tess Kennedy MD Primary Care Provider [phone] Allergies No known active allergies Medications MedicationSigDispense QuantityRefillsLast FilledStart DateEnd DateStatus alendronate (FOSAMAX) 70 mg tablet Take 1 tablet (70 mg total) by mouth every 7 days.07/24/2019Active calcium carbonate (CALCIUM 500 ORAL) Take 2,000 mg by mouth in the morning.Active cholecalciferol, vitamin D3, (VITAMIN D3) 5,000 units tablet Take 1 tablet (5,000 Units total) by mouth in the morning.Active aspirin 81 mg Take 1 tablet (81 mg total) by mouth in the morning.Active Active Problems ProblemNoted DateDiagnosed DateFamily history of ovarian ynovwt0703/03/2023 Overview (03/03/2023): Pt.'s mom and pt. States BRCA testing negative Family History Medical HistoryRelationNameCommentsHeart diseaseFatherOvarian cancerMotherBreast cancerSister 1Heart attackSister 0c3Cizyy cancerNeg HxPancreatic cancerNeg Hx Uterine cancerNeg HxRelationNameStatusCommentsFatherDeceasedMotherDeceasedSister 1DeceasedSister 2Alive Social History Tobacco UseTypesPacks/DayYears UsedDateSmoking Tobacco: NeverSmokeless Tobacco: NeverAlcohol UseStandard Drinks/WeekCommentsYes0 (1 standard drink = 0.6 oz pure alcohol)socialAUDIT-CAnswerDate RecordedQ1: How often do you have a drink containing alcohol?2-4 times a month03/03/2023Q2: How many drinks containing alcohol do you have on a typical day when you are drinking?1 or Q3: How often do you have six or more drinks on one occasion?Never03/03/2023HQ-2 AnswerDate RecordedTotal Gqgsy8705ChildcareAnswerDate RecordedChildcare Fpbmrna3703/30/2019EmploymentAnswerDate EeknsyscNgcbfpwzbzOwyrcjf91/12/2019Hunger ScreeningAnswerDate RecordedWithin the past 12 months we worried whether our food would run out before we got money to buy more.Never True03/08/2025Within the past 12 months the food we bought just didn't last and we didn't have money to get more.Never True03/08/2025Purpose - LifeAnswerDate RecordedPurpose and direction in ugwxMjgyhfs84/11/2021CommentsNoSex and Gender Information ValueDate RecordedSex Assigned at BirthNot on fileLegal QmaVdggeb89/06/2015 11:27 AM EDTGender IdentityNot on fileSexual OrientationNot on file Last Filed Vital Signs Vital SignReadingTime TakenCommentsBlood Cujuiltj859/80003/08/2025 8:11 AM EDT Alxrb217807/28/2019 9:50 AM PJTAbsocoqwlhr64 ??C (98.6 ??F)07/28/2019 8:46 AM EDT Respiratory Ikdj8304 9:50 AM EDTOxygen Lcfvyfxbmr40%07/28/2019 10:04 AM EDTInhaled Oxygen Concentration--Avmjkw45.3 kg (144 lb)03/08/2025 8:11 AM EDT Itaueb071.1 cm (4' 11.5 )03/08/2025 8:11 AM EDTBody Mass Index28.6003/08/2025 8:11 AM EDT Plan of Treatment Health MaintenanceDue DateLast DoneCommentsAdult BMI Follow Up Plan01/23/1972 DTaP,Tdap and Td Vaccines (1 - Tdap)1973Fall Risk Qgsghbktq79/06/2019 Dvtofjgyc24/07/2022COVID-19 Vaccine (2024- season)2025 09/02/2022, 03/11/2022, 08/18/2021, Additional history existsInfluenza Vaccine 06/19/2025dult BMI Hqrfwrhgw24Depression Olvgsqmwu90/21/2026 03/08/2025Tobacco Gakdithfe00RSV ( or age 60+ yrs) (1 - 1-dose 75+ series)2029Zoster (Shingles) PsmknebRzvkyhymb55/03/2019, 04/10/2019 Medical Devices Not on file Insurance Care Teams Team MemberRelationshipSpecialtyStart DateEnd Tess Kennedy MD [address] [place] [id number] PCP - GeneralFamily Yiihbbns18/9/19
--- OUTSIDE RECORDS SUMMARY | 2025-09-20 06:58 | XMS_ITS | CCD ---
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 Name Role Phone OSACR, DR TESS Higgins Admitting Unavailable MOORE, DR [...] Patton Attending Unavailable Mandi Patton Admitting Unavailable GaleaMandi Attending Unavailable GaleaMandi Attending Unavailable GaleaMandi Attending Unavailable GaleaMandi Admitting Unavailable XU MABRY Attending Unavailable XU MABRY Admitting Unavailable XU MABRY Attending Unavailable XU MABRY Attending Unavailable XU MABRY Attending Unavailable XU MABRY Admitting Unavailable Tess Moore MD Primary Care Provider TESS MOORE Referring Unavailable TESS MOORE Primary Care Unavailable Tess Moore MD Primary Care Provider Tess Moore MD Attending Provider Lotus Medellin Attending Unavailable XU MABRY Attending Unavailable Lotus Medellin Admitting Unavailable Lotus Medellin Attending Unavailable Geraldo HOWARD Attending Unavailable Lotus Medellin Attending Unavailable Allergies Allergy ClassificationReported Allergen(s)Allergy TypeDate of OnsetReaction(s) Facility (5 sources)No Known Medication Allergies; Translations: [No Known Medication Allergies]Propensity to adverse reactions (disorder)[facility] Repository Medications Current Medications MedicationDrug Class(es)DatesSig (Normalized)Sig (Original)alendronic acid 70 mg oral tablet (17 sources)BisphosphonateStart: 06-21-2024 End: 16-63-6723Uifmeypycif 70 mg tablet Active 0 .ROUTE .COMPLEX May 23, 2025 10:59am TAKE 1 TABLET ONCE A WEEK Complies with drug therapyStart: 02-02-2024 End: 45-14-9349vlcr 1 mg by mouth every weekFosamax 70 mg Tab mg tab(s), Oral, qWeek, Refills(s) 0 Start Date: 06/02/24 Status: Ordered Repeat number: 1Start: 53-33-0893rmegjfssbmp (FOSAMAX) 70 mg tablet Take 1 tablet (70 mg total) by mouth every 7 days. 07/24/2019 Activeaspirin 81 mg oral capsule (11 sources)Platelet Aggregation Inhibitor, Nonsteroidal Anti-inflammatory Drug Start: 08-68-7213enrd 1 mg by mouth every twenty-four hoursaspirin 81 mg oral capsule mg cap(s), Oral, q24hr, Refills(s) 0 Start Date: 06/02/24 Status: Ordered Repeat number: 1take 1 tablet by mouth in the morningaspirin 81 mg Take 1 tablet (81 mg total) by mouth in the morning. ActiveCalcium Carbonate (1 source)take 2000 mg by mouth in the morningcalcium carbonate (CALCIUM 500 ORAL) Take 2,000 mg by mouth in the morning. Activecalcium citrate 950 mg oral tablet (10 sources)Start: 60-27-1725fcbq 1 mg by mouth twice dailycalcium (as calcium citrate) 200 mg oral tablet mg tab(s), Oral, BID, Refills(s) 0 Start Date: Status: Ordered Repeat number: 1cholecalciferol 0.125 mg oral tablet (1 source)Vitamin Dtake 1 tablet by mouth in the morningcholecalciferol, vitamin D3, (VITAMIN D3) 5,000 units tablet Take 1 tablet (5,000 Units total) by mouth in the morning. ActiveCranberry preparation (4 sources)Non-Standardized Food Allergenic Extract, Non-Standardized Plant Allergenic ExtractStart: 78-69-4742hqen 1 tablet by mouth once dailyCranberry 1 tab, Oral, Daily Start Date: 12/19/24 Status: Ordered Repeat number: 1Start: 41-11-0559dfik 1 tablet by mouth once dailyCranberry 1 tab, Oral, Daily Start Date: 12/19/24 Status: Orderedestradiol 0.1 mg/ml vaginal cream (10 sources)EstrogenStart: 19-70-0039Wbxevsg 0.1 mg/g Cream See Instructions, 42.5 gm, Refill(s) 6, Apply a pea-sized amount around the urethra using your fingertip. Apply nightly x 3 weeks, then 3x per week thereafter for maintenance.,[facility], 151, cm, 05/15/25 8:24:00 EDT, Height/Length Dosing, 66.7, kg, 258:24:00 EDT, Weight Dosing Start Date: 05/15/25 Status: Ordered Quantity: 42.5 Unit: g Repeat number: 7Start: 06-02-2024 Estrace 0.1 mg/g Cream 1 gm, Vaginal, As Directed, 42.5 gm, Refill(s) 3, apply pea-sized amount to urethra 3x/week for 1 month, then 2x/week for maintenance, [facility], 151, cm, 06/02/24 13:27:00 EDT, Height/Length Dosing, 69, kg, 06/02/24 13:27:00 EDT, Weight Dosing Start Date: 06/02/24 Status: Orderedlosartan potassium 25 mg oral tablet (2 sources)Angiotensin 2 Receptor BlockerStart: 33-11-3879kqmtujmy 25 mg Tab 25 mg = 1 tab(s), Refills(s) 0 Start Date: 07/19/25 Status: Ordered Repeat number: 1 Start: 45-08-2931caqi 1 tablet by mouth once dailyLosartan 25 mg tablet Active 25 MG PO Daily June 30, 2025 12:00am Complies with drug therapy oxybutynin chloride 5 mg oral tablet (2 sources)Cholinergic Muscarinic AntagonistStart: 05-15-2025 End: 88-22-5800bszz 2 tablets by mouth at bedtimeoxybutynin 5 mg Tab 10 mg = 2 tab(s), Oral, Bedtime, X 30 day(s), # 60 tab(s), Refills(s) 2, Pharmacy: [facility], 151, cm, 05/15/25 8:24:00 EDT, Height/Length Dosing, 66.7, kg, 05/15/25 8:24:00 EDT, Weight Dosing Start Date: 05/15/25 Stop Date: 08/13/25 Status: Ordered Quantity: 60.0 Unit: tab(s) Repeat number: 3 sulfamethoxazole 800 mg / trimethoprim 160 mg oral tablet (2 sources)Dihydrofolate Reductase Inhibitor Antibacterial, Sulfonamide AntimicrobialStart: 11-21-2024 End: 14-10-7322Evixbps D.S. 800 mg-160 mg Tab 1 tab(s), Oral, BID for 10 day(s), 20 tab(s), Refill(s) 0, [facility], 151, cm, 11/21/24 8:42:00 EST, Height/Length Dosing, 69, kg, 11/21/24 8:42:00 EST, Weight Dosing Start Date: 11/21/24 Stop Date: 12/01/24 Status: OrderedVitamin D (10 sources)Start: 09-27-2789Hwptqsa D International_Unit, Oral, qWeek, Refills(s) 0 Start Date: 06/02/24 Status: Ordered Repeat number: 1Start: 58-44-9258Hhojdom D International_Unit, Oral, qWeek, Refills(s) 0 Start Date: 06/02/24 Status: Ordered Completed/Discontinued Medications MedicationDrug Class(es)DatesSig (Normalized)Sig (Original)ciprofloxacin 500 mg oral tablet (2 sources)Quinolone AntimicrobialStart: 90-90-7865jyjg 1 tablet by mouth once dailyCipro 500 mg Tab 500 mg = 1 tab(s), Oral, Daily, Take 1 tablet the day before the procedure and 1 tablet after the procedure, # 2 tab(s), Refills(s) 0, Pharmacy: [facility], 151, cm, 12/19/24 8:40:00 EST, Height/Length Dosing, 69, kg, 12/19/24 8:40:00 EST, Weight Dosing Start Date: Status: Orderedcyclobenzaprine hydrochloride 10 mg oral tablet (3 sources)Muscle RelaxantStart: 02-02-2024 End: 52-67-2228wvks 1 tablet by mouth three times daily as neededCyclobenzaprine 10 mg tablet Discontinued 1 TAB PO Three times daily February 02, 2024 12:00am 2023 9:45am FreeTextSi tablet as needed Orally Three times a day; Note: Source Status: Not-TakingundefinedPRN; Refills: 0; Qty: 21 Tablet; Provider: Pravin Patriciatrospium chloride 20 mg oral tablet (7 sources)Cholinergic Muscarinic AntagonistStart: 09-01-2024 End: 62-79-1404hjyd 1 tablet by mouth onceTrospium 20 mg tablet Discontinued 20 MG PO Once December 14, 2024 1:00am June 3059:56am administer on an empty stomach Problems Active Problems Problem ClassificationProblemDateDocumented DateEpisodic/ChronicDisorders of lipid metabolism (10 sources)Cafzekwurfypth86-27-2312BdffrmaKcqfgityg hypertension (5 sources)Hypertensive disorder; Translations: [Essential (primary) hypertension]21-00-4904UvkhydsYqdrmkwkibvtv symptoms and ill-defined conditions (15 sources)Nocturia; Translations: [Nocturia]Onset: 36-86-9033Ighycwby Osteoporosis (4 sources)Osteoporosis; Translations: [Age-related osteoporosis without current pathological fracture]69-85-8318RstmbkzSzwgd circulatory disease (3 sources)Carotid bruit; Translations: [Other specified symptoms and signs involving the circulatory and respiratory systems]74-38-2503QtazwikeFkccu circulatory disease (1 source)Other specified symptoms and signs involving the circulatory and respiratory systems; Translations:[Other symptoms involving cardiovascular system]63-26-5546EtotmgmqUsenl circulatory disease (1 source)Elevated blood pressure; Translations: [Elevated blood-pressure reading, without diagnosis of hypertension]34-83-0130UazzvaesGvgam diseases of bladder and urethra (4 sources)Urethral icqudwucp99-85-8653UxwhdpmlAvqei diseases of bladder and urethra (3 sources)Male urethral stricture; Translations: [Unspecified urethral stricture, male, unspecified site]Onset: 04-22-3666QnhywsjaOhhxb screening for suspected conditions (not mental disorders or infectious disease) (10 sources)Encounter for screening mammogram for malignant neoplasm of breast; Translations: [Abnormal electrocardiogram [ECG] [EKG]]Onset: 67-72-7367Mjkdhymd Retinal detachments; defects; vascular occlusion; and retinopathy (4 sources)Retinal disorder; 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] 01-19-6554JiwvtdbQcebgrnaj and history of mental health and substance abuse codes (1 source)Standardized adult depression screening tool completed ; Translations: [Encounter for screening fordepression]16-28-3171BswcqegnVoyemhp tract infections (9 sources)Urinary tract infectious disease; Translations: [Urinary tract infection, site not specified]Onset: 97-25-3859KaiwulenPbcck infection (4 sources)Postherpetic neuralgia; Translations: [Other postherpetic nervous system involvement]56-86-2278Lunlyfui Past or Other Problems Problem ClassificationProblemDateDocumented DateEpisodic/ChronicMood disorders (1 source)Mood disordersOnset: 635530-15-0182Olfnx lower respiratory disease (4 sources)Other forms of dyspnea; Translations: [OTHER FORMS OF DYSPNEA]Onset: 47-26-2369RllyfdjmUpkfxhzl codes; unclassified (1 source)Family history of malignant neoplasm of breast; Translations: [FAMILY HX MALIG NEOPLASM OF BREAST]Onset: 92-20-1977NlgvyfamKvohihfa codes; unclassified (1 source)Family history of malignant neoplasm of ovary; Translations: [FAM HX MALIGNANT NEOPLASM OVARY]Onset: 50-15-9169XjgkhymlEphykdcz codes; unclassified (1 source)Family history of malignant neoplasm of ovary; Translations: [Family history of malignant neoplasm of ovary]Onset: 097612-19-5818Zvmainsj Unclassified (1 source)Onset: Results Test NameValueInterpretationReference RangeFacilityC Urineon 17-04-0356Gsxztmnp identified Cx Nom (U)Microbiology PROCEDURE: Urine Culture [R1] SOURCE: U CleanCatch BODY SITE: COLLECTED DATE/TIME: 07/19/2025 09:02 EDT RECEIVED DATE/TIME: 07/19/2025 17:56 EDT START DATE/TIME: 07/19/2025 17:56 EDT FREE TEXT SOURCE: Lotus Medellin PA-C, PA-C, Lotus FINAL REPORTS Final Report [] Verified Date/Time: 07/21/2025 11:29 EDT >100,000 cfu/ml Klebsiella pneumoniae SUSCEPTIBILITY RESULTS LEGEND: S=Susceptible, N/R=Not Reported, Blank=Data not available, or drug not advisable or tested, I=Intermediate, ESBL=Extended spectrum beta-lactamase, R=Resistant, TFG=Thymidine-dependent strain, OTIS=Beta-lactamase positive, JANES=mcg/m;(mg/L), S*=Predicted susceptible interp, R*=Predicted resistant interp Klepne Antibiotic JANES Dilutn JANES Interp Ampicillin >16 R Ampicillin/ <=8/4 S Sulbactam Cefazolin <=2 S Cefepime <=2 S Ceftazidime/ <=8 S Avibactam Ceftriaxone <=1 S Cefuroxime <=4 S Ciprofloxacin <=0.25 S Ertapenem <=0.5 S Gentamicin <=2 S Levofloxacin <=0.5 S Meropenem <=1 S Nitrofurantoin <=32 S Piperacillin/ <=8 S Tazobactam Tetracycline <=4 S Tobramycin <=2 S Trimethoprim/ <=2/38 S Sulfa Performing Locations R1: This test was performed at: [facility], [address] [place] [address], [address] , , WxfpsbNxwmzpL[facility] Municipal HospitalComment on above:Performed By: #### [id number] #### [facility] [address] [place] [address] [id number] Visit Summaryon [id number] Visit Summary Ambulatory Visit Summary ANTOINE YEE :1955 Visit Date:07/19/2025 Ambulatory Visit Instructions Your Diagnosis Nocturia Recurrent UTI Urethral stricture Your Care Team Attending Physician - Lotus Medellin PA-C Primary Care Physician - TESS MOORE MD This Is Your Medications List alendronate (Fosamax 70 mg Tab) aspirin (aspirin 81 mg oral capsule) calcium citrate (calcium (as calcium citrate) 200 mg oral tablet) cranberry (Cranberry) ergocalciferol (Vitamin D) estradiol topical (Estrace 0.1 mg/g Cream) losartan (losartan 25 mg Tab) oxybutynin (oxybutynin 5 mg Tab) Procedures Performed Bladder, Breast surgery, Colonoscopy, Cystourethroscopy with dilation of urethral stricture, Hysterectomy. Discharge Vitals Temperature (Tympanic) 36.9 ???C Heart Rate (Peripheral) 66 Respiratory Rate 16 Blood Pressure 130/78 Height 151 cm Height 59 in Weight 66.2 kg Weight 145.946 lb BMI 29.03 What to do next Scheduled Follow-Up Appointments Thursday2025 8:00 AM EDT With: Lotus Medellin PA-C Where: [facility] [address] [address]- Medications What How Much When Instructions Unchanged alendronate (Fosamax 70 mg Tab) By Mouth Every week Unchanged aspirin (aspirin 81 mg oral capsule) By Mouth Every 24 hours Unchanged calcium citrate (calcium (as calcium citrate) 200 mg oral tablet) By Mouth 2 times a day Unchanged cranberry (Cranberry) 1 tab By Mouth Every day Unchanged ergocalciferol (Vitamin D) By Mouth Every week Unchanged estradiol topical (Estrace 0.1 mg/ g Cream) See instructions Apply a pea-sized amount around the urethra using your fingertip. Apply nightly x 3 weeks, then 3x per week thereafter for maintenance. Unchanged losartan (losartan 25 mg Tab) 1 Tablets Unchanged oxybutynin (oxybutynin 5 mg Tab) 2 Tablets By Mouth At bedtime Duration: 30 Days Allergies No Known Medication Allergies Problems Ongoing - Any problem that you are currently receiving treatment for. Hyperlipidemia Nocturia Recurrent UTI Urethral stricture Patient Survey You may receive a survey via text or e-mail asking about your office visit. Please share your experience with us by completing your survey. We appreciate your feedback and thank you for choosing us for your care. Patient Portal You may access all of your results and other medical record information on our secure patient portal. If you are not signed up for this yet, please contact [employer] at [phone] to get signed up today. Language Information Language assistance services are available as needed. [place] [facility] HospitalU[facility] Office/Clinic Noteon [id number] Office/Clinic NoteUrology Office/Clinic Note Chief Complaint Pt is here for follow up HPI Staff Pt is a 70 year old female here for 2 month follow up Dx: recurrent UTI, nocturia, urethral stricture S/P cysto UD 01/10/25. *estradiol topical 42.5 started on 05/15/25 , oxybutynin, OTC cranberry Pt complains of nocturia, she gets up about 5X nightly, she thinks oxybutynin is not working she has self increased to 3 nightly Pt reports that all of her symptoms are nocturnal Pt denies pain/burning denies visible blood denies flank pain PVR: 0 mL History of Present Illness I have reviewed and verified the staff HPI to be accurate for this encounter. Review of Systems PHQ Score Initial Depression Screen Score: 0 SCORE no fever, chills, malaise, myalgia. no abdominal pain, nausea, vomiting. Physical Exam Vitals & Measurements T: 36.9 ???C(Tympanic) HR: 66(Peripheral) RR: 16 BP: 130/78 HT: 151 cm HT: 59 in WT: 145.946 lb WT: 66.2 kg BMI: 29.03 General: Well developed, well nourished, in no acute distress. Assessment/Plan 70 yo female patient here for 3 month f/u PRW pt 1. Nocturia (R35.1: Nocturia) 06/02/24: BBSQ 19. [...] fluctuate. BBSQ 14. See #1 and #3. Trospium qhs stopped at cysto 01/10/25. Last visit, she was started on Oxybutynin 10 mg qhs d/t continued nocturia x 4-5. Denies bothersome daytime sx. Has been limiting fluids in evening as instructed. BBSQ 12 (day) - 20 (night) Today, she shares she taking Oxybutynin 15 mg qhs (not 10 mg). She increased dose on her own. Has not noticed much difference in 10 mg versus 15 mg dose. Denies bothersome SE to med. Shares she continues to have nocturia x 4-5. Waking d/t urgency to void. Denies NAVIN, leg swelling. Sometimes limits fluids prior to bed, sometimes not. Does not notice difference in nocturia with limiting fluids prior to bed. Shares she holds her urine up to 5 hrs during the day while at work. Recommend timed voidsq2-3 hrs and emptying bladder better during the day to see if this helps with nocturia. Offered to switch OAB meds (trial Beta 3), but she declines. She wishes to work on behavioral modifications first. Recommend she decrease dose of Oxybutynin back to 10 mg qhs given no difference with increased dose. She is agreeable. All questions answered. -Cont Oxybutynin 10 mg qhs -Timed voids q2-3h during the day -Limit fluids 2 hrs prior to bed -F/U in 6 months w/ PVR, or sooner if needed Ordered: Urine Culture 2. Recurrent UTI (N39.0: Urinary tract infection, site not specified) UCx: 06/02/24 - + Klebsiella, Keflex x 7d 09/01/24 - E Coli, Bactrim x 7d. 11/21/24 - salmeron-S E Coli. Empiric Bactrim x 10d. 12/19/24 - 100k Klebsiella. Pt finished Cipro x 1 wk then Keflex x 1 mo. TONIA/KUB 12/28/24 - suggested tiny non-obstructing renal stone but no ureteral stones and nothing large enough that I would suspect it is contributing to her UTIs. 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 Pt was instructed to take Macrobid daily x 3 mos. Pt finished this late March 2025. Pt reported improvement in dysuria and odor following Macrobid. Last visit, pt reported not taking Estrace cream. She was restarted on topical estrogen cream. Taking cranberry supplements. UA today w/ large leuks and small blood. She denies UTI since last visit. She is asx at today's visit. Denies gross hematuria. Reviewed UA w/ pt, suspicious for infection. Given asx, she prefers not to treat for UTI. Will send urine for culture and tx pt only if she becomes symptomatic. For UTI prevention, she continues to take cranberry pills and use Estrace cream 2x/weekly. Recommend adding D-mannose and probiotics. She is agreeable. All questions answered. -Send urine for culture, tx only if pt becomes symptomatic -Cont cranberry pills. Start D-mannose (more content not included)...Normal [facility]Comment on above:Result Comment: Electronically Signed By: Laice VERDE, Lotus\.br\Date and Time Signed: 07/19/25 09:27 EDT Urology Office/Clinic Noteon [id number] Office/Clinic NoteUrology Office/Clinic Note Chief Complaint pt here for [...] showed diffuse mild cystitis + cystitis follicularis lesionson the floor. Pt was instructed to take [...] Urnls Dip Stick Auto w/o Microscopy POC 94767 2. Nocturia (R35.1: Nocturia) 06/02/24: BBSQ 19. [...] continues to have nocturia x4-5. This is verybothersome. Denies bothersome daytime sx. Has been limiting fluids in evening as instructed. Discussed options. Medication management includes anticholinergics and beta-3 agonists. Beta-3???s (Myrbetriq/Gemtesa) are often preferable due to lower side effect profile, but most insurances won???t cover without trying/failing at least 2 anticholinergics first. Therefore we will try another. Iffails second anticholinergic, we can consider Beta-3 vs voiding diary + DDAVP if indicated. 3. Urethral stricture (N35.919: Unspecified urethral s (more content not included)...[facility] HospitalComment on above:Result Comment: Electronically Signed By: XU MABRY PA-C\.chiara\Date and Time Signed: 05/15/2509:00 EDTC Urineon 13-04-7817Xttxsbjq identified Cx Nom (U)Microbiology PROCEDURE: Urine Culture [R1] SOURCE: U CleanCatch BODY SITE: COLLECTED DATE/TIME: 12/19/2024 10:30 EST RECEIVED DATE/TIME: 12/19/2024 18:45 EST START DATE/TIME: 12/19/2024 18:45 EST FREE TEXT SOURCE: XU MABRY PA-C, PA-C, XU Higgins FINAL REPORTS Final Report [] Verified Date/Time: 12/21/2024 08:34 EST >100,000 cfu/ml Klebsiella pneumoniae SUSCEPTIBILITY RESULTS LEGEND: S=Susceptible, N/R=Not Reported, Blank=Data not available, or drug not advisable or tested, I=Intermediate, ESBL=Extended spectrum beta-lactamase, R=Resistant, TFG=Thymidine-dependent strain, OTIS=Beta-lactamase positive, JANES=mcg/m;(mg/L), S*=Predicted susceptible interp, R*=Predicted resistant interp Klepne Antibiotic JANES Dilutn JANES Interp Ampicillin [...] Locations R1: This test was performed at: [facility], [address] [place] [address], [address]- , [place], QrqlskPeknnvLancaster Municipal HospitalComment on above:Performed By: #### [id number] #### [facility] [address] [place] [id number] Office/Clinic Noteon [phone] Office/Clinic NoteUrology Office/Clinic Note Chief Complaint 1 month follow [...] E&M of Est. Patient Moderate 30-39 Min 08103 Influenza immunization status assessed 1030F Medication list [...] Urnls Dip Stick Auto w/o Microscopy POC 48456 US Renal XR Abdomen 1 View 2. [...] procedure, # 2 tab(s), Refills(s) 0, Pharmacy: [facility], 151, cm, 12/19/24 8:40:00 EST, Height/Length Dosing, 69, kg, 12/19/24 8:40:00... Follow-up With When Contact Information [facility] [place] [address] Business (1) Additional Instructions: our equipment scheduler will be contacting you for follow-up Patient E (more content not included)...[facility] HospitalComment on above:Result Comment: Electronically Signed By: XU MABRY PA-C\ana\Date and Time Signed: 12/20/2515:24 [facility] Urineon [id number] identified Cx Nom (U)Microbiology PROCEDURE: Urine Culture [R1] SOURCE: U CleanCatch BODY SITE: COLLECTED DATE/TIME: 11/21/2024 10:33 EST RECEIVED DATE/TIME: 11/21/2024 17:26 EST START DATE/TIME: 11/21/2024 17:26 EST FREE TEXT SOURCE: XU MABRY PA-C, PA-C, JENNIFER E FINAL REPORTS Final Report [] Verified Date/Time: 11/23/2024 11:00 EST >100,000 cfu/ml Escherichia coli SUSCEPTIBILITY RESULTS LEGEND: S=Susceptible, N/R=Not Reported, Blank=Data not available, or drug not advisable or tested, I=Intermediate, ESBL=Extended spectrum beta-lactamase, R=Resistant, TFG=Thymidine-dependent strain, OTIS=Beta-lactamase positive, JANES=mcg/m;(mg/L), S*=Predicted susceptible interp, R*=Predicted resistant interp EC Antibiotic JANES Dilutn JANES Interp Ampicillin [...] Locations R1: This test was performed at: [facility], [address] [place] [address], [address] , , FabnpfZnphkpLancaster Municipal HospitalComment on above:Performed By: #### [id number] #### [facility] [address] [place] [id number] Visit Summaryon [id number] Visit Summary Ambulatory Visit Summary ANTOINE YEE :1955 Visit Date:11/21/2024 Ambulatory Visit Instructions Your Diagnosis Nocturia Recurrent UTI Your Care Team Attending Physician - XU MABRY PA-C Primary Care Physician - TESS MOORE MD This Is Your Medications List estradiol topical (Estrace 0.1 mg/g Cream) sulfamethoxazole-trimethoprim (Bactrim D.S. 800 mg-160 mg Tab) trospium [...] XU MABRY PA-C Where: [facility] [address] [place] [address]- Medications What How Much When Why Instructions New sulfamethoxazole-trimethoprim (Bactrim D.S. 800 mg-160 mg Tab) 1 Tablets By Mouth 2 times a dayDuration: 10 Days Pickup at [facility] Unchanged estradiol topical (Estrace 0.1 mg/ [...] Mouth Every week Contact prescribing physician if questionsor concerns Pharmacy Information [facility]: [address] [place], [place] [id number] [phone] Allergies No Known Medication Allergies Problems Ongoing - Any problem that you are currently receiving treatment for. Hyperlipidemia Nocturia Patient Survey You may receive a survey via text or e-mail asking about your office visit. Please share your experience with us by completing your survey. We appreciate your feedback and thank you for choosing us for your care. [place] [facility] HospitalUrology Office/Clinic Noteon [phone] Office/Clinic NoteUrology Office/Clinic Note Chief Complaint Follow up with [...] E&M of Est. Patient Moderate 30-39 Min 64302 Urnls Dip Stick Auto w/o Microscopy POC 10231 2. Recurrent UTI (N39.0: Urinary tract infection, [...] mo to ensure infection completely gone. Ordered: 92007 Measure Post Void residual urine and/or bladder capacity by US- non-imaging E&M of Est. Patient Moderate 30-39 Min 38719 Orders: sulfamethoxazole-trimethoprim, 1 tab(s), Oral, BID for 10 day(s), 20 tab(s), Refill(s) 0, [facility], 151, cm, 11/21/24 8:42:00 EST, Height/Length Dosing, 69, kg, 11/21/24 8:42:00 EST, Weight Dosing Follow-up With When Contact Information RAGHAVENDRA VERDE, XU Higgins, URL In 1 month [address] [place] [address] Additional Instructions: Patient Education Urinary [...] and Sister. Liver diseas (more content not included)...[facility] Comment on above:Result Comment: Electronically Signed By: XU MABRY PA-Cbr\Date and Time Signed: 11/21/2508:35 ESTRmackcontrerasmanjeet [id number] Reminders From: Laurel Campbell To: EU - Administrative; Sent: 09/09/2024 11:58:48 EST Show up: 09/09/2024 11:58:00 EST Subject: Ambulatory Reminder Due Date/Time: 12/03/2024 11:58:00 EST Reminder/Recall Patient needs scheduled for a 3 m F/U with PVR, [facility] [id number] identified Cx Nom (U)Microbiology PROCEDURE: Urine Culture [R1] SOURCE: U Random BODY SITE: COLLECTED DATE/TIME: 09/01/2024 09:07 EST RECEIVED DATE/TIME: 09/01/2024 18:10 EST START DATE/TIME: 09/01/2024 18:10 EST FREE TEXT SOURCE: Mandi Salinas Alysha J FINAL REPORTS Final Report [] Verified Date/Time: 09/03/2024 08:58 EST 75,000 cfu/ml Escherichia coli SUSCEPTIBILITY RESULTS LEGEND: S=Susceptible, N/R=Not Reported, Blank=Data not available, or drug not advisable or tested, I=Intermediate, ESBL=Extended spectrum beta-lactamase, R=Resistant, TFG=Thymidine-dependent strain, OTIS=Beta-lactamase positive, JANES=mcg/m;(mg/L), S*=Predicted susceptible interp, R*=Predicted resistant interp EC Antibiotic JANES Dilutn JANES Interp Ampicillin [...] Locations R1: This test was performed at: [facility], [address] [place] [address], [facility] , , QixexkYudjfzL[facility] HospitalComment on above:Performed By: #### [id number] #### [facility] [address] [place], [place] [address]Ambulatory Visit Summaryon [id number] Visit Summary Ambulatory Visit Summary ANTOINE YEE :1955 Visit Date:09/01/2024 Ambulatory Visit Instructions Your Diagnosis Nocturia Recurrent UTI Your Care Team Attending Physician - Abdi HUBBARD, Mandi Live Primary Care Physician - TESS MOORE MD [...] Schedule the Following Appointments Follow Up with Abdi HUBBARD, JONATHAN Covarrubias When: Within 3 months Comments: w/ PVR Where: Medications What How Much When Why Instructions New trospium (trospium 20 mg oral tablet) 1 Tablets By Mouth Every day Refills: 4 at nighttime Pickup at [facility] Unchanged alendronate (Fosamax 70 mg Tab) [...] Mouth Every week Contact prescribing physician if questionsor concerns Unchanged estradiol topical (Estrace 0.1 mg/ g Cream) 1 Gram Vaginal As Directed Nocturia apply pea-sized amount to urethra 3x/ week for 1 month, then 2x/ week for maintenance Contact prescribing physician if questions or concerns Pharmacy Information [facility]: [address] [place], [place] [phone] Allergies No Known Medication Allergies Problems Ongoing [...] part of the urinary tract. The urinary tractincludes the kidneys, ureters, bladder, and urethra. These organs make, store, and get rid of urinein the body. An upper UTI affects the [...] this diagnosed? This condit (more content not included)...[facility] Urology Office/Clinic Noteon [id number] Office/Clinic NoteUrology Office/Clinic Note Chief Complaint 3mo f/u HPI [...] E&M of Est. Patient Moderate 30-39 Min 01130 Influenza immunization status assessed 1030F Medication list [...] Urnls Dip Stick Auto w/o Microscopy POC 95680 2. Recurrent UTI (N39.0: Urinary tract infection, site not specified) 06/02/24 cx - >100k Klebsiella pneumoniae, treated with Keflex 500mg BID x7 days UA today small blood, trace leuks Pt reports for the past few weeks she has had a strong odor to her urine and intermittent dysuria Advised pt that infection could still be contributing to her nocturia. Pt denies weak stream. Advisedpt to greatly increase fluid intake and call our office for symptoms of UTI. Also discussed starting OTC preventatives and staying on estrogen cream 2x weekly for UTI prevention, pt agreeable. -Send urine for cx, treat if positive -Start OTC preventatives (cranberry pills, probiotic, D-mannose) -Continue estrogen cream 2x weekly -See #1 Ordered: E&M of Est. Patient Moderate 30-39 Min 70172 Orders: trospium, 20 mg = 1 tab(s), Oral, Daily, at nighttime, # 30 tab(s), Refills(s) 4, Pharmacy: [facility], 151, cm, 09/01/24 8:26:00 EST, Height/Length [...] q24hr calcium (as c (more content not included)...[facility] Comment on above:Result Comment: Electronically Signed By: Mandi Salinas\.br\Date and Time Signed: 09/01/24 08:57 [facility] Urineon [id number] identified Cx Nom (U)Microbiology PROCEDURE: Urine Culture [R1] SOURCE: U CleanCatch BODY SITE: COLLECTED DATE/TIME: 06/02/2024 14:01 EDT RECEIVED DATE/TIME: 06/02/2024 17:49 EDT START DATE/TIME: 06/02/2024 17:49 EDT FREE TEXT SOURCE: Mandi Salinas Alysha J FINAL REPORTS Final Report [] Verified Date/Time: 06/04/2024 10:32 EDT >100,000 cfu/ml Klebsiella pneumoniae SUSCEPTIBILITY RESULTS LEGEND: S=Susceptible, N/R=Not Reported, Blank=Data not available, or drug not advisable or tested, I=Intermediate, ESBL=Extended spectrum beta-lactamase, R=Resistant, TFG=Thymidine-dependent strain, OTIS=Beta-lactamase positive, JANES=mcg/m;(mg/L), S*=Predicted susceptible interp, R*=Predicted resistant interp Klepne Antibiotic JANES Dilutn JANES Interp Ampicillin [...] Locations R1: This test was performed at: [facility], [address] [place] [address], [address] , , PzhasiKdxzjcLancaster Municipal HospitalComment on above:Performed By: #### [id number] #### [facility] [address] [place] [address]Oureiuigkf Visit Summaryon [id number] Visit Summary Ambulatory Visit Summary ANTOINE YEE [...] With: Mandi Salinas Where: [facility] [address] [address]- You Need to Schedule the Following Appointments Follow Up with Mandi Salinas, FRANCESL When: Within 3 months Where: Medications What How Much When Why Instructions New estradiol topical (Estrace 0.1 mg/ g Cream) 1 Gram Vaginal As Directed Nocturia Refills: 3 apply pea-sized amount to urethra 3x/ week for 1 month, then 2x/ week for maintenance Pickup at [facility] Unchanged alendronate (Fosamax 70 mg Tab) [...] Mouth Every week Contact prescribing physician if questionsor concerns Pharmacy Information [facility]: [address] [place], [place] [phone] Allergies No Known Medication Allergies Problems Ongoing [...] keep your urine pale yellow. ? Take mfgj-glc-execrnt or prescription medicines. ? Eat foods that are high in fiber, such as beans, whole grains, and fresh fruits and vegetables. ? Limit foods that are high in fat and processed sugars, such as fried or sweet foods. General instructions ? Take dbyt-mjx-fjbatqc and prescription medicines only as told by your health care provider. ? Keep all follow-up visits. This is important. Contact a he (more content not included)...[facility] Urology Office/Clinic Noteon [id number] Office/Clinic NoteUrology Office/Clinic Note Chief Complaint New Pt here [...] As Directed, 42.5 gm, Refill(s) 3, apply pea- sized amount to urethra 3x/week for 1 month, then 2x/week for maintenance, [facility], 151, cm, 06/02/2413:27:00 EDT, Height/Length Dosing, 69, kg, 06/02/24 13:27:00 EDT, Nehemiah... [address] Measure Post Void residual urine and/or bladder capacity by US- non-imaging E&M of New Patient Moderate 45-59 Min 27852 Urine Culture Urnls Dip Stick Auto w/o Microscopy POC 32625 2. Abnormal urinalysis (R82.90: Unspecified abnormal findings in urine) UA today small blood, + nitrates, trace leuks Spoke with patient regarding UA results today, pt denies UTI symptoms. Advised pt that infection could be contributing to her nocturia. Will send for cx and treat if positive. -Send urine for cx, treat if positive -See #1 Ordered: E&M of New Patient Moderate 45-59 Min 08688 Urine Culture Follow-up With When Contact Information Mandi Salinas, JONATHAN Within 3 months Additional Instructions: Patient Education [...] 100 in lifetime) Tobacc (more content not included)...Normal [facility] above:Result Comment: Electronically Signed By: Mandi Salinas\.br\Date and Time Signed: 06/02/24 14:16 EDTCBC AUTO DIFFon [id number] #0.0 103/ulNormal0.0-0.1[facility] CenterComment on above:Performed By: #### DATCBC #### [facility] [address] [address] [address] Gemma SanchezBasophils/100 WBC (Bld)0.6 %Normal0.2-2.0[facility] Comment on above:Performed By: #### DATCBC #### [facility] [address] [address] [address] Gemma Massey #0.2 103/ulNormal0.0-0.7The [facility] RehabilitationComment on above: Performed By: #### DATCBC #### [facility] [address] [address] [address] Gemma Alstonosinophils/100 WBC (Bld)3.7 %Normal0.9-7.0[facility] Comment on above:Performed By: #### DATCBC #### [facility] [address] [place] [address] Dr. Gemma Alstonrythrocyte distribution width (RBC) [Ratio]12.5 %Dmjkdk90.0-15.0 [facility] Toledoment on above:Performed By: #### DATCBC #### [facility] [address] [place] [address] Dr. Gemma SanchezHematocrit (Bld) [Volume fraction]41.7 %Tczruf93.0-48.0The [facility] RehabilitationComment on above:Performed By: #### DATCBC #### [facility] [address] [place] [address] Dr. Gemma SanchezHemoglobin (Bld) [Mass/Vol]14.1 g/dWSnyjtt73.0-16.0The [facility] RehabilitationComment on above:Performed By: #### DATCBC #### [facility] [address] [place] [address] Dr. Gemma Mac #0.02 10e3/ulNormal0.00-0.03The [facility] RehabilitationComhar[facility] beach [facility] on above:Performed By: #### DATCBC #### [facility] [address] [place] [address] Dr. Gemma Mac %0.4 %Normal0.0-0.5The [facility] on above: Performed By: #### DATCBC #### [facility] [address] [place] [address] Dr. Gemma Taylor #1.3 103/ulNormal1.2-3.8The [facility] RehabilitationComhar[facility] beach community hospital on above:Performed By: #### DATCBC #### [facility] [address] [place] [address] Dr. Gemma Longohocytes/100 WBC (Bld)23.9 %Hleceo12.5-60.0[facility] on above:Performed By: #### DATCBC #### [facility] [address] [place] [address] Dr. Gemma Godfrey (RBC) [Entitic mass]31.5 cwQbjhqv27.7-34.0The [facility] RehabilitationComment on above:Performed By: #### DATCBC #### [facility] [address] [place] [address] Dr. Gemma Ghosh (RBC) [Mass/Vol]33.8 g/aAFjacak73.9-35.2The Hundred HospitalComment on above:Performed By: #### DATCBC #### [facility] [address] [place] [address] Dr. Gemma Ghosh (RBC) [Entitic vol]93.1 dRBryzra83.0-99.0The [facility] RehabilitationComment on above:Performed By: #### DATCBC #### [facility] [address] [place] [address] Dr. Gemma Norton #0.3 103/ulNormal0.3-0.8The [facility] RehabilitationComment on above:Performed By: #### DATCBC #### [facility] [address] [place] [address] Dr. Gemma Arizmendiocytes/100 WBC (Bld)6.2 %Normal1.7-12.0The [facility] Comment on above:Performed By: #### DATCBC #### [facility] [address] [place] [address] Dr. Gemma Mcleod #3.5 103/ulNormal1.4-6.5The [facility] RehabilitationComment on above:Performed By: #### DATCBC #### [facility] [address] [place] [address] Dr. Gemma Clarosutrophils/100 WBC (Bld)65.2 %Ssuikr08.0-75.0The [facility] RehabilitationComment on above:Performed By: #### DATCBC #### [facility] [address] [place] [address] Dr. Gemma Claudiolet mean volume (Bld) [Entitic vol]8.9 fLCritically low 9.5-13.5The [facility] RehabilitationComment on above:Performed By: #### DATCBC #### [facility] [address] [place] [address] Dr. Gemma SanchezPLT245 103/faJxveqe622-177Xzu [facility] RehabilitationComment on above: Performed By: #### DATCBC #### [facility] [address] [place] [address] Dr. Gemma SanchezRBC4.48 106/ulNormal4.20-5.40The [facility] RehabilitationComment on above:Performed By: #### DATCBC #### [facility] [address] [place] [address] Dr. Gemma SanchezWBC5.4 103/ulNormal4.0-11.0The [facility] RehabilitationComment on above: Performed By: #### DATCBC #### [facility] [address] [place] [address] Dr. Gemma Snider- BMP WITH LIPIDon [id number] gap [Moles/Vol]14.7 mmol/L NormalThe [facility] RehabilitationComment on above:Performed By: #### DATBMP #### [facility] [address] [place] [address] Dr. Gemma SanchezCalcium [Mass/Vol]8.6 mg/dLNormal8.5-10.1[facility] Comment on above:Performed By: #### DATBMP #### [facility] [address] [place] [address] Dr. Gemma SanchezChloride [Moles/Vol]106 mmol/JAffguz86-123Arw [facility] Comment on above:Performed By: #### DATBMP #### [facility] [address] [place] [address] Dr. Gemma SanchezCholesterol [Mass/Vol]207 mg/dLCritically high<=200The [facility] RehabilitationComment on above:Performed By: #### DATBMP #### [facility] [address] [place] [address] Dr. Gemma SanchezCholesterol in HDL [Mass/Vol]66 mg/dLCritically cfvf01-37Ozu [facility] RehabilitationComment on above:Performed By: #### DATBMP #### [facility] [address] [address] [address] Gemma SanchezCholesterol in LDL [Mass/Vol]119.2 mg/dLChillicothe HospitalComment on above:Performed By: #### DATBMP #### [facility] [address] [address] [address] Gemma SanchezCO2 [Moles/Vol]26.4 mmol/MEcfelq89.0-32.0The [facility] Comment on above:Performed By: #### DATBMP #### [facility] [address] [address] [address] Gemma SanchezCreatinine [Mass/Vol]0.75 mg/dLNormal0.55-1.02[facility] Medical CenterComment on above:Performed By: #### DATBMP #### [facility] [address] [address] [address] Gemma AlstonGFR-AF COMORAN>60Normal>=60[facility] Medical CenterComment on above:Performed By: #### DATBMP #### [facility] [address] [address] [address] Gemma Sanchez-NON AF COMORAN>60Normal>=60[facility] Hospitalment on above:Performed By: #### DATBMP #### [facility] [address] [address] [address] Gemma SanchezGlucose [Mass/Vol]98 mg/eFOdhlwo35-895Aod [facility] Comment on above:Performed By: #### DATBMP #### [facility] [address] [address] [address] Gemma SanchezHDL NORMAL> or = 60 mg/dl - LOW CARDIOVASCULAR RISK <40 mg/dl - HIGH CARDIOVASCULAR RISKChillicothe HospitalComment on above:Performed By: #### DATBMP #### [facility] [address] [address] [address] Gemma SanchezLDL CALC NORMALSEE BELOWChillicothe HospitalComment on above:Result Comment: <100 mg/dl OPTIMAL 100 - 129 mg/dl NEAR OR ABOVE OPTIMAL 130 - 159 mg/dl BORDERLINE HIGH 160 - 189 mg/dl HIGH >190 mg/dl VERY HIGH Performed By: #### DATBMP #### [facility] [address] [address] [address] Gemma SanchezPotassium [Moles/Vol]4.1 mmol/LNormal3.5-5.1The [facility] Comment on above:Performed By: #### DATBMP #### [facility] [address] [address] [address] Gemma SanchezSodium [Moles/Vol]143 mmol/OZiawve430-172Jgs [facility] Comment on above:Performed By: #### DATBMP #### [facility] [address] [address] [address] Gemma SanchezTriglyceride [Mass/Vol]109 mg/dLNormal<=150The [facility] Comment on above:Performed By: #### DATBMP #### [facility] [address] [address] [address] Gemma SanchezUrea nitrogen [Mass/Vol]15.0 mg/dLNormal7.0-18.0The [facility] RehabilitationComment on above:Performed By: #### DATBMP #### [facility] [address] [place] [address] Dr. Gemma SanchezUrea nitrogen/Creatinine [Mass ratio]20.0 mg/mgNoAdena Regional Medical CenterComment on above:Performed By: #### DATBMP #### [facility] [address] [place] [address] Dr. Gemma SanchezVLDL CALC21.8 mg/dLChillicothe HospitalComment on above: Performed By: #### DATBMP #### [facility] [address] [place] [address] Dr. Gemma SanchezMG MAMM SCREEN 3D JENNY CADon [id number] MAMM SCREEN 3D JENNY CAD Patient: ANTOINE YEE Exam Date: 08/25/2022 : 1955 Gender:F Ordering : GENEVIEVE PANTOJA Admission #: [id number] Family : Order #: [id number] CLICK HERE TO VIEW EXAM RADIOLOGY REPORT [...] ovarian cancer at age 74. LOCATION: [facility] BREAST COMPOSITION: Scattered areas fibroglandular density. FINDINGS: [...] by: Remberto Zavala MD on 08/25/2022 at 12:19[facility] ECHOCARDIO M/2D COMPLETEon [id number] M/2D COMPLETEPatient: ANTOINE YEE Exam Date: 07/31/2022 : 1955 Gender:F Ordering : DR TESS MOORE M.D. Admission #: [id number] Family : Order #: [id number] CLICK HERE TO VIEW EXAM ECHOCARDIOGRAM REPORT [...] by: Kyle Jack M.D. on 07/31/2022 at 20:48[facility] STRESS/REST MULTIon [id number] STRESS/REST MULTIPatient: ANTOINE YEE Exam Date: 07/31/2022 : 1955 Gender:F Ordering : DR TESS MOORE M.D. Admission #: [id number] Family : Order #: [id number] CLICK HERE TO VIEW EXAM RADIOLOGY REPORT [...] by: Remberto Zavala MD on 07/31/2022 at 14:40[facility] Vital Signs Date TimeVital SignValuePerforming PwlzikluxZujtqqns69-45-2788 09:52-0400Body tcugkx136.86 cmTess Moore MD Work Phone: [phone]09-12-2025 09:52-0400 Body mass index (BMI) [Ratio]29.1 kg/h2NvltcsTess Moore MD Work Phone: [phone]09-12-2025 09:52-0400 Body owlbht51.37 kgTess Moore MD Work Phone: [phone]09-12-2025 09:52-0400 Diastolic blood bvngwuln54 mm[Hg]Tess Moore MD Work Phone: [phone]09-12-2025 09:52-0400 Heart rate61 /minTess Moore MD Work Phone: [phone]09-12-2025 09:52-0400 Systolic blood pxroqvfz377 mm[Hg]Tess Moore MD Work Phone: [phone]05-21-2025 08:11-0400 Body abvqyb761.1 [facility]05-21-2025 08:11-0400Body mass index (BMI) [Ratio]28.6 kg/m2[facility]05-21-2025 08:11-0400Body xdiijv42.32 kgPutnam [facility]05-21-2025 08:11-0400Diastolic blood mm[Hg][facility] 03-08-2025 08:11-0400Systolic blood cdtbxaze454 mm[Hg][facility]03-03-2025 08:35-0500Body kyhpvccoibq11.42 [degF]XU MABRY [facility]03-03-2025 08:35-0500Diastolic blood awimhwpe41 mm[Hg]XU RAGHAVENDRA [facility]03-03-2025 08:35-0500Heart rate61 /minJENNIFER RAGHAVENDRA [facility]03-03-2025 08:35-0500Respiratory rate16 /minJENNIFER RAGHAVENDRA [facility]03-03-2025 08:35-0500Systolic blood frhctadx859 mm[Hg]XU CARROLLRY [facility]02-26-2025 09:31-0500Body utigkd848.86 cmBethesda North Hospital02-26-2025 09:31-0500Body mass index (BMI) [Ratio]29.5 kg/u5TtaiorrhpBethesda North Hospital02-26-2025 09:31-0500Body ahnnif46.22 kgBethesda North Hospital02-26-2025 09:31-0500Diastolic blood rqsgzsve83 mm[Hg] [facility]02-26-2025 09:31-0500Heart rate56 /minBethesda North Hospital02-26-2025 09:31-0500Systolic blood oriadgfb615 mm[Hg] [facility]02-03-2025 08:38-0500Diastolic blood rrohrjjx29 mm[Hg]XU RAGHAVENDRA [facility]02-03-2025 08:38-0500Heart rate65 /minJENNIFER RAGHAVENDRA [facility]02-03-2025 08:38-0500Respiratory rate16 /minJEPAULA RAGHAVENDRA [facility]02-03-2025 08:38-0500Systolic blood mm[Hg]XU MABRY [facility]11-14-2024 08:07-0500Blood Pressure LocationAlysha Galea [facility]11-14-2024 08:07-0500Body xdsxoqwpdse98.6 [degF]Mandi Galea [facility]11-14-2024 08:07-0500Diastolic blood dlfoslas02 mm[Hg]Mandi Galea [facility]11-14-2024 08:07-0500Heart rate60 /minAlysha Galea [facility]11-14-2024 08:07-0500Respiratory rate16 /minAlysha Galea [facility]11-14-2024 08:07-0500Systolic blood gcgquzti199 mm[Hg]Mandi Galea [facility]08-15-2024 12:49-0400Blood Pressure LocationAlysha Galea [facility]08-15-2024 12:49-0400Body crwoxtbqsea93.8 [degF]Mandi Galea [facility]08-15-2024 12:49-0400Diastolic blood pvcqubqw15 mm[Hg]Mandi Galea [facility]08-15-2024 12:49-0400Heart rate64 /minAlysha Galea [facility]08-15-2024 12:49-0400Systolic blood mm[Hg]Mandi Galea [facility]04-17-2024 09:32-0400Body hjniot338.86 cmBethesda North Hospital04-17-2024 09:32-0400Body mass index (BMI) [Ratio]31.7 kg/o3BrdypwthgBethesda North Hospital04-17-2024 09:32-0400Body rvlzyw44.21 kgBethesda North Hospital04-17-2024 09:32-0400Diastolic blood mm[Hg] [facility]04-17-2024 09:32-0400Heart rate76 /[facility]24 09:32-0400Systolic blood xjiekdfy501 mm[Hg] [facility] Encounters Encounter DateEncounter TypeCare ProviderFacilityStart: 07-19-2025 End: 24-39-9577dthpekdyogLnzwkp TannaFacility:FTMCStart: 07-19-2025 End: 28-77-9115pvvgmnewnyQhvcjh TannaFacility:EU BellevueStart: 07-19-2025 End: 33-01-3445Xhhklie encounter procedureLauren Lacie [facility] start: 06-30-2025 End: 05-30-7936roocqprwdeKxcnag E Braun MD Work Phone: [facility] Work Phone: Start: 06-30-2025 End: 54-05-6568Oqrjzkp encounter procedureTess Moore MD-[facility] Work Phone: Start: 05-15-2025 End: 56-74-8472ghgvabelkoVADVFZSX E PERRYFacility:EU BellevueStart: 05-15-2025 End: 62-09-5196Zekdqil encounter procedureJENNIFER E RAGHAVENDRA [facility] start: 03-08-2025 End: 07-31-0713Vdoiqy pelvic examinationPutnam [facility] Work Phone: Start: 03-08-2025 End: 69-59-7303Cqqhzqi encounter procedurePmcbride [facility] [place] [facility] - CyldeComment on above:Encounter for breast and pelvic examination (Primary Dx); Screening for osteoporosis; Standardized adult depression screening tool completedStart: 03-08-2025 End: 77-20-9886hmytshbffbBSPXPAProvidence St. [facility] Ambulatory PPGStart: 63-51-2675Fkimxqxcj for gynecological examination (general) (routine) without abnormal findingsEncompass Health Rehabilitation Hospital Ambulatory PPGStart: 01-10-2025 End: 18-09-2442ewwocidergVggrlzt R WATERSFacility:CD:[id number]: 12-19-2024 End: 14-33-7625njhayugecyCIEAQYOC E PERRYFacility:FTMCStart: 12-19-2024 End: 05-50-9760Oiq Drop offJENNIFER E RAGHAVENDRA [facility] Start: 12-19-2024 End: 13-07-8679udiuhtllfiZAYSRUNS E PERRYFacility:EU BellevueStart: 12-19-2024 End: 50-20-7650Gltkokb encounter procedureJENNIFER E RAGHAVENDRA [facility] start: 79-29-8204Chclecf encounter procedureTess Moore MD Work Phone: [facility] 12-14-2024 End: 84-23-1202xwvpotwiodByulhnsgxBarney Children's Medical Center Work Phone: Start: 12-14-2024 End: 01-68-9368Qxudibq encounter procedureSugarsmyth county community hospital Physician GroupVeterans Health Administration Work Phone: Start: 11-21-2024 End: 87-29-9257quymmpleswKBOELIPB E PERRYFacility:FTMCStart: 11-21-2024 End: 18-55-0816Kgo Drop offJENNIFER E RAGHAVENDRA [facility] Start: 11-21-2024 End: 09-64-6428tytsmyntinXJPYFHKV E PERRYFacility:EU tart: 11-21-2024 End: 26-37-2932Bdqlxrg encounter procedureJENNIFER E RAGHAVENDRA [facility] start: 09-01-2024 End: 61-08-3022vubqkrkrngLgcmvt J GaleaFacility:FTMCStart: 09-01-2024 End: 64-87-1232Xiv Drop offAlysha J Galea [facility] Start: 09-01-2024 End: 87-06-0888ifiermmichUfsmmy J GaleaFacility:EU evueStart: 09-01-2024 End: 29-13-3038Iybvjgp encounter procedureAlysha J Galea [facility] start: 06-02-2024 End: 78-56-3129hlxvtnklisFdotlh J GaleaFacility:FTMCStart: 06-02-2024 End: 98-88-1175Pum Drop offAlyssharan Patton [facility] Start: 06-02-2024 End: 41-05-6923mtixauhglhVgadjk J GaleaFacility:EU BellevueStart: 06-02-2024 End: 74-28-5286Wipfrvq encounter procedureAlyssharan Patton [facility] start: 67-32-1488ektyzrqemdOzobth GaleaFacility:EU BellevueStart: 02-03-2024 End: 13-19-5175tqejmcfzouGcgpyqvfjBarney Children's Medical Center Work Phone: Start: 02-03-2024 End: 94-04-3519Tobudjo encounter procedureD[facility] Physician GroupVeterans Health Administration Work Phone: Start: 03-02-2023 End: 44-73-4578genakijbyxEI TESS MOOREFacility:Z2Uhsce: 08-25-2022 End: 42-91-7509ihkymywkqwDC TESS MOOREFacility:D2Fsfow: 07-31-2022 End: 28-63-3841qcpsxksswlOB TESS MOOREFacility:D5Pcuqr: 07-02-2022 End: 22-67-2598clxhrifddrVD MARCIA E BRAUNFacility:H1 Procedures DateProcedureProcedure DetailPerforming ClinicianStart: 92-19-2539Vwshj depression screening assessmentMiddlesboro Arh Hospital MidwifeStart: 26-49-9634OostvrggblzGvnj MidwifeBreast surgery (qualifier value)Mandi Patton ColonoscopyMandi Patton Cystourethroscopy with dilation of urethral stricture Mandi Patton HysterectomyMandi Patton Urinary bladder structure (body structure)Mandiray Patton Plan of Treatment DateCare ActivityDetailAuthorStart: 86-49-7385Wxknb BMI ScreeningAdult BMI ScreeningProPremier Health [facility] SystemStart: 41-75-1483Zlbimifeoq ScreeningDepression ScreeningProPremier Health [facility] SystemStart: 40-94-4328Mtbzsel ScreeningTobacco ScreeningProPremier Health [facility] SystemStart: 03-95-9259xjvdrrapeoBphudjcwkvCmlqwprw:EU BellevueStart: 56-43-1721Fygwiasmc vaccinationInfluenza VaccineProPremier Health [facility] SystemStart: 03-08-2025 End: 41-23-5707NDA Skeletal system Views for bone densityDexa scan central skeletal Imaging Routine Screening for osteoporosis Expected: 03/08/2025, Expires: 03/08/2026[employer] Work Phone: Comment on above:Expected: 03/08/2025, Expires: 03/08/2026Start: 75-33-3081ARIRF-19 Vaccine ( season)COVID-19 Vaccine ()[facility] SourceMedical SystemStart: 94-97-9448Owdpnbqnm for malignant neoplasm of breastMammogramOhio State Health System SystemStart: 2019 Fall Risk ScreeningFall Risk ScreeningOhio State Health System SystemStart: 1973 DTaP,Tdap and Td Vaccines (1 - Tdap)DTaP,Tdap and Td Vaccines (1 - Tdap) [facility] SourceMedical SystemStart: 67-53-0327Tqigs BMI Follow Up PlanAdult BMI Follow Up PlanOhio State Health System SystemComprehensive metabolic 1999 panel - Serum or PlasmaBethesda North HospitalComprehensive metabolic 1999 panel - Serum or [facility] HospitalDXA Skeletal system.axial Views for bone densityBethesda North HospitalUS.doppler Carotid arteries - bilateralArroyo Grande Community Hospital Immunizations Immunization DateImmunizationNotesCare CkqnuavcIphxgvgg17-96-0738IJNY-JpR-1 (COVID-19) mRNAMUL.ORD!v67098Rpkrke Galea [facility]05-24-2022SARS-CoV-2 mRNA (icjrcgzvfwo-ehfz-pfelrhr) vaccineAlysha Galea [facility]10-31-2021SARS-CoV-2 (COVID-19) mRNA BNT-162b2 vaxAlysha Galea [facility]04-09-2021SARS-CoV-2 (COVID-19) mRNA BNT-162b2 vaxAlysha Galea [facility]03-18-2021SARS-CoV-2 (COVID-19) mRNA BNT-162b2 vaxAlysha Galea [facility]09-03-2019zoster vaccine recombinantAlysha Galea [facility]06-23-2019pneumococcal conjugate vaccine, 13 valentAlysha Galea [facility]06-23-2019zoster vaccine recombinantAlysha Galea [facility] Payers DatePayer CategoryPayerPolicy [id number] HMOAETNA MEDICARE [id number] [id number]-[id number] 2.16840.1.060281.3.57[id number] 2.16840.1.123076.3.57[id number] 2.160.1.210494.3.57[id number] 2.16840.1.632551.3.57[id number] 2.840.1.500344.3.57[id number] 2.16840.1.165030.3.57[id number] 2.16.840.1.210701.3.57[id number] 2.16840.1.573790.3.57[id number] 2.16840.1.831994.3.57[id number] 2.16.840.1.933329.3.57[id number] 2.16840.1.370618.3.57[id number] 2.16840.1.930364.3.57[id number] 2..840.1.963411.3.57[id number] 2..840.1.024512.3.57[id number] 2.16.840.1.84[id number] Health InsuranceAetna Insurance [id number]-wpyShun Pay [id number] 2..840.1.622213.3.579.2.593 Social History DateTypeDetailFacilityStart: 01-28-2024 End: 28-96-1523Fbmwkcf smoking status NHISNever smoked tobacco (finding) [facility]: 35-57-5223Jim [facility]igned At [facility] CampusTobacc smoking statusNeverExec[facility] BellevueStart: 11-29-2020 End: 15-66-2478Opo [facility] At [facility]: 05-24-2015 End: 75-24-9061SirTgycma (finding)[facility]: 06-13-4542Qazfyun use and exposureSmokeless tobacco non-userProProtestant Hospitalca Health SystemStart: 17-75-6919Dajvcjnvw beverage intakeCurrent drinker of alcohol (finding)[facility] Health SystemStart: 11-29-2020 End: 66-07-0685Kjpsekv of Social functionProMedica Health SystemHow often to you have a drink containing alcohol?2-4 times a monthProMedica Health SystemHow many standard drinks containing alcohol do you have on a typical day?1 or 2 [facility] Health SystemHow often do you have 6 or more drinks on 1 occasion? NeverBarney Children's Medical CenterNew Channel Online School SystemStart: 36-89-3067Deszlyq CommentsocialHolzer Health System Zighratart: 79-63-6815Czy assigned at birthNot on [facility]. [facility] Health CampusNew Channel Online School [facility] Noble Hospitalexual OrientationExec[facility] Functional Status PfwlUfcbhenenkXtvgzfEeepuhip17-60-0448Wemdjzwsbe StatusN/AExec[facility]02-03-2025Functional StatusN/A[facility]11-14-2024Functional StatusN/A [facility]08-15-2024Functional StatusN/AExec[facility] Clinical Notes 03-02-2023 to 07-19-2025 Note Date & LugiSxodVdmxapqo79-59-3255 Hospital Discharge instructions Patient Education 07/19/2025 09:24:26 Urinary Frequency, Adult Urinary Frequency, Adult Urinary [...] to keep your urine pale yellow. ?Take enzi-cvy-ucuaawg or prescription medicines. ?Eat foods that are high in fiber, such as beans, whole grains, and fresh fruits and vegetables. ?Limit foods that are high in fat and processed sugars, such as fried or sweet foods. General instructions Take vypw-kdg-abfqrrp and prescription medicines only as told by [...] the muscles that help control urination. Take wnub-yrs-zydnukx and prescription medicines only as told by your health care provider. Contact a health care provider if your symptoms do not improve or get worse. This information is not intended to replace advice given to you by your health care provider. Make sure you discuss any questions you have with your health care provider. Document Revised: 05/10/2021 Document Reviewed: 05/10/2021 1stdibs Patient Education 2023 [employer]. Follow Up Care 05/15/2025 08:46:38 With:Lotus Medellin PA-C, URL Address: When:Within 6 Month(s) Comments:w/ FRANTZ [facility] 10-01-2025 NotePatient Education Urology Urinary Frequency, Adult Urinary frequency [...] keep your urine pale yellow. ? Take ozay-gpd-rwvbzie or prescription medicines. ? Eat foods that are high in fiber, such as beans, whole grains, and fresh fruits and vegetables. ? Limit foods that are high in fat and processed sugars, such as fried or sweet foods. General instructions ??? Take gzts-nfy-txprjbr and prescription medicines only as told by [...] fluid and do not have a bladder infectionor other bladder condition. ??? Your health care provider may recommend that you keep a bladder diary, follow a bladder training program, or make dietary changes. ??? If told by your health care provider, do Kegel exercises to strengthen the muscles that help control urination. ??? Take hdzd-pvw-fwahfgl and prescription medicines only as told by your health care provider. ??? Contact a health care provider if your symptoms do not improve or get worse. This information is not intended to replace advice given to you by your health care provider. Make sure you discuss any questions you have with your health care provider. Document Revised: 05/10/2021 Document Reviewed: 05/10/2021 1stdibs Patient Education ? 2023 iExplore.[facility] 05-15-2025 Hospital Discharge instructions Patient Education 05/15/2025 [...] to keep your urine pale yellow. ?Take ykka-hcc-dkiuqaj or prescription medicines. ?Eat foods that are high in fiber, such as beans, whole grains, and fresh fruits and vegetables. ?Limit foods that are high in fat and processed sugars, such as fried or sweet foods. General instructions Take akos-jzw-cnsigfh and prescription medicines only as told by [...] the muscles that help control urination. Take pjej-hiy-oqftcxn and prescription medicines only as told by your health care provider. Contact a health care provider if your symptoms do not improve or get worse. This information is not intended to replace advice given to you by your health care provider. Make sure you discuss any questions you have with your health care provider. Document Revised: 05/10/2021 Document Reviewed: 05/10/2021 1stdibs Patient Education 2023 [employer]. Follow Up Care 01/12/2025 14:44:21 With:XU MABRY PA-C, URL Address: [address] [place] [address] When:Within 3 Month(s) [facility] 07-28-2025 NotePatient Education Urology Urinary Frequency, Adult Urinary frequency [...] keep your urine pale yellow. ? Take lbln-ppz-fdqhwvu or prescription medicines. ? Eat foods that are high in fiber, such as beans, whole grains, and fresh fruits and vegetables. ? Limit foods that are high in fat and processed sugars, such as fried or sweet foods. General instructions ??? Take ibmq-jbz-hgnzrca and prescription medicines only as told by [...] fluid and do not have a bladder infectionor other bladder condition. ??? Your health care provider may recommend that you keep a bladder diary, follow a bladder training program, or make dietary changes. ??? If told by your health care provider, do Kegel exercises to strengthen the muscles that help control urination. ??? Take uend-kqf-wenfuor and prescription medicines only as told by your health care provider. ??? Contact a health care provider if your symptoms do not improve or get worse. This information is not intended to replace advice given to you by your health care provider. Make sure you discuss any questions you have with your health care provider. Document Revised: 05/10/2021 Document Reviewed: 05/10/2021 1stdibs Patient Education ? 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 4 vaginal deliveries Smoker no Dexa Scan: 2020 [facility] Osteopenia Colonoscopy: 2018 PHQ-9 screenin The following portions of the patient's history were reviewed and updated as appropriate: allergies, current medications, past family history, past medical history, past social history, past surgicalhistory, problem list, and medication reconciliation was completed including current medication andpost discharge medication. Review of Systems Constitutional: Negative. [...] exam and / or PRN. HIREN Melton APRN-CNP Lisa M Krotzer, APRN-CNP 03/08/25 0846 documented in this encounterBarney Children's Medical CenterVenddo.com [facility] HospitalBputna39-39-8932 Hospital Discharge instructions Patient Education 12/19/2024 16:22:38 [...] start to feel better. If you stop takingthem too soon: You may feel sick again. [...] as soon as possible. Do not take doubleor extra doses. What are the risks of [...] in the future with bacteria that do notrespond to medicine (antibiotic-resistant infection). Antibiotics can cause bacteria to change so that if the antibiotic is taken again, the medicine cannot kill the bacteria. These infections can bemore serious because they are hard, or sometimes [...] your antibiotics unless told otherwise. Drink enough fluidto keep your urine pale yellow. Ask your [...] provider. Document Revised: 05/05/2023 Document Reviewed: 05/05/2023 1stdibs Patient Education 2023 iExplore. Follow Up Care 11/21/2024 09:10:31 With:[facility] Address: [address] [place] [address] Business (1) When: Unknown Comments:our equipment scheduler will be contacting you for follow-up [facility] Yani 03-03-2025 NotePatient Education Caregiving Antibiotic Medicine, Adult Antibiotic medicines [...] start to feel better. If you stop takingthem too soon: ??? You may feel sick [...] as soon as possible. Do not take doubleor extra doses. What are the risks of [...] in the future with bacteria that do notrespond to medicine (antibiotic-resistant infection). Antibiotics can cause bacteria to change so that if the antibiotic is taken again, the medicine cannot kill the bacteria. These infections can bemore serious because they are hard, or sometimes [...] your health care provider. Do not use antibioticsprescribed for someone else. ??? Drink a large [...] care provider. Do not stop taking your antibioticseven if you start to feel better. ??? [...] ??? You have sig (more content not included)...[facility] 12-19-2024 Evaluation + Plan note Diagnostic Tests Pending * Urine Culture 12/19/24 [facility] 02-03-2025 Hospital Discharge instructions Patient Education 11/21/2024 09:35:17 [...] to keep your urine pale yellow. ?Take zwqp-asr-rtfceew or prescription medicines. ?Eat foods that are high in fiber, such as beans, whole grains, and fresh fruits and vegetables. ?Limit foods that are high in fat and processed sugars, such as fried or sweet foods. General instructions Take cuyx-mjb-hnvwhsp and prescription medicines only as told by [...] the muscles that help control urination. Take btck-odr-jhrotwo and prescription medicines only as told by your health care provider. Contact a health care provider if your symptoms do not improve or get worse. This information is not intended to replace advice given to you by your health care provider. Make sure you discuss any questions you have with your health care provider. Document Revised: 05/10/2021 Document Reviewed: 05/10/2021 1stdibs Patient Education 2023 1[employer] Follow Up Care 09/09/2024 13:50:45 With:XU MABRY PA-C, URL Address: [address] [place], [place] [address] [address] When:Within 1 Month(s) [facility] aYni 02-03-2025 NotePatient Education Urology Urinary Frequency, Adult Urinary frequency [...] keep your urine pale yellow. ? Take ayiz-zpb-iumyvdv or prescription medicines. ? Eat foods that are high in fiber, such as beans, whole grains, and fresh fruits and vegetables. ? Limit foods that are high in fat and processed sugars, such as fried or sweet foods. General instructions ??? Take pabu-jyz-hlhoqyd and prescription medicines only as told by [...] fluid and do not have a bladder infectionor other bladder condition. ??? Your health care provider may recommend that you keep a bladder diary, follow a bladder training program, or make dietary changes. ??? If told by your health care provider, do Kegel exercises to strengthen the muscles that help control urination. ??? Take ppwj-bwz-oxxfxot and prescription medicines only as told by your health care provider. ??? Contact a health care provider if your symptoms do not improve or get worse. This information is not intended to replace advice given to you by your health care provider. Make sure you discuss any questions you have with your health care provider. Document Revised: 05/10/2021 Document Reviewed: 05/10/2021 1stdibs Patient Education ? 2023 iExploreRonaPremier Health [facility] 09-01-2024 Evaluation + Plan note Diagnostic Tests Pending * Urine Culture 09/01/24 [facility] 11-14-2024 Hospital Discharge instructions Patient Education 09/01/2024 08:56:27 Urinary Tract Infection, Adult Urinary Tract Infection, Adult A urinary tract infection (UTI) is an infection of any part of the urinary tract. The urinary tractincludes the kidneys, ureters, bladder, and urethra. These organs make, store, and get rid of urinein the body. An upper UTI affects the [...] Treatment for this condition includes: Antibiotic medicine. Zcub-ato-dnrpjuc medicines to treat discomfort. Drinking enough water to stay hydrated. If you have frequent infections or have other conditions such as a kidney stone, you may need to see a health care provider who specializes in the urinary tract (urologist). In rare cases, urinary tract infections can cause sepsis. Sepsis is a life- threatening condition that occurs when the body responds to an infection. Sepsis is treated in the hospital with IV antibiotics, fluids, and other medicines. Follow these instructions at home: Medicines Take wvep-cwf-sgsfjwn and prescription medicines only as told by your health care provider. If you were prescribed an antibiotic medicine, take it as told by your health care provider. Do notstop using the antibiotic even if you start [...] told by your health care provider. Do notstop using the antibiotic even if you start to feel better. Keep all follow-up visits. This is important. This information is not intended to replace advice given to you by your health care provider. Make sure you discuss any questions you have with your health care provider. Document Revised: 05/12/2021 Document Reviewed: 05/17/2021 1stdibs Patient Education 2023 iExplore. Follow Up Care 06/02/2024 13:54:11 With:Mandi Salinas, URL Address: When:3 months Comments:w/ FRANTZ [facility] 11-14-2024 NotePatient Education Obstetrics and Gynecology Urinary Tract Infection, Adult A urinary tract infection (UTI) is an infection of any part of the urinary tract. The urinary tractincludes the kidneys, ureters, bladder, and urethra. These organs make, store, and get rid of urinein the body. An upper UTI affects the [...] this condition includes: ??? Antibiotic medicine. ??? Ellx-jxt-whwezud medicines to treat discomfort. ??? Drinking enough water to stay hydrated. If you have frequent infections or have other conditions such as a kidney stone, you may need to see a health care provider who specializes in the urinary tract (urologist). In rare cases, urinary tract infections can cause sepsis. Sepsis is a life- threatening condition that occurs when the body responds to an infection. Sepsis is treated in the hospital with IV antibiotics, fluids, and other medicines. Follow these instructions at home: Medicines ??? Take uxni-oen-fahryjj and prescription medicines only as told by your health care provider. ??? If you were prescribed an antibiotic medicine, take it as told by your health care provider. Donot stop using the antibiotic even if you [...] as told by your health care provider. Donot stop using the antibiotic even if you start to feel better. ??? Keep all follow-up visits. This is important. This information is not intended to replace advice given to you by your health care provider. Make sure you di (more content not included)...[facility]08-15-2024 Hospital Discharge instructions Patient Education 06/02/2024 14:15:23 [...] to keep your urine pale yellow. ?Take bgzz-bfl-tpkqiid or prescription medicines. ?Eat foods that are high in fiber, such as beans, whole grains, and fresh fruits and vegetables. ?Limit foods that are high in fat and processed sugars, such as fried or sweet foods. General instructions Take zvwq-ynm-tmgzfqg and prescription medicines only as told by [...] the muscles that help control urination. Take imqk-asg-lwraypj and prescription medicines only as told by your health care provider. Contact a health care provider if your symptoms do not improve or get worse. This information is not intended to replace advice given to you by your health care provider. Make sure you discuss any questions you have with your health care provider. Document Revised: 05/10/2021 Document Reviewed: 05/10/2021 [employer] Patient Education 2022 [employer]. Follow Up Care 05/10/2024 08:27:04 With:Mandi Salinas URL Address: When:3 months [facility] NotePatient Education Urology Urinary Frequency, Adult Urinary frequency [...] the muscles that help control urination, which mayhelp the condition. Eating and drinking Follow instructions [...] treat constipation. Constipation can make urinary frequency worse.You may need to take these actions to prevent or treat constipation: ? Drink enough fluid to keep your urine pale yellow. ? Take yyqx-qgf-dgzudqe or prescription medicines. ? Eat foods that are high in fiber, such as beans, whole grains, and fresh fruits and vegetables. ? Limit foods that are high in fat and processed sugars, such as fried or sweet foods. General instructions ? Take eubj-tfc-gpyudax and prescription medicines only as told by [...] muscles that help control urination. ? Take mwwp-uty-cptlqyy and prescription medicines only as told by your health care provider. ? Contact a health care provider if your symptoms do not improve or get worse. This information is not intended to replace advice given to you by your health care provider. Make sure you discuss any questions you have with your health care provider. Document Revised: 05/10/2021 Document Reviewed: 05/10/2021 [employer] Patient Education ? 2022 [employer].[facility] 03-02-2023 NotePROCEDURE: XR SHOULDER RT 2V or > HISTORY: Pain of right shoulder joint COMPARISON: None. FINDINGS: BONES:Mild degenerative changes of the acromioclavicular joint. Unremarkable humeral head and glenohumeral joint. SOFT TISSUES:No visible soft tissue swelling. EFFUSION:None visible. OTHER: Negative. IMPRESSION: 1. No acute bone abnormality. 2. Mild degenerative changes of the acromioclavicular joint. Electronically authenticated by: DOMINGA HERNANDES Date: 2023-03-02 07:45[facility] Future Appointments Appointment Date:09/01/2024 08:00:00 AM Scheduled Provider:Mandi Salinas Location:[facility] Appointment Type:URO Office Visit [facility] evaluation + Plan note Future Appointments Appointment Date:09/01/2024 08:00:00 AM Scheduled Provider:Mandi Salinas Location:[facility] Appointment Type:URO Office Visit Diagnostic Tests Pending * Urine Culture 06/02/24 [facility] Evaluation + Plan note Future Appointments Appointment Date:12/19/2024 08:20:00 AM Scheduled Provider:XU MABRY PA-C Location:[facility] Appointment Type:URO Office Visit Diagnostic Tests Pending * Urine Culture 11/21/24 [facility] Evaluation + Plan note Future Appointments Appointment Date:12/19/2024 08:20:00 AM Scheduled Provider:XU MABRY PA-C Location:[facility] Appointment Type:URO Office Visit [facility] evaluation + Plan note Future Appointments Appointment Date:07/19/2025 08:00:00 AM Scheduled Provider:Lotus Medellin PA-C Location:[facility] Appointment Type:URO Office Visit [facility] evaluation + Plan note Future Appointments Appointment Date:01/17/2026 08:00:00 AM Scheduled Provider:Lotus Medellin PA-C Location:[facility] Appointment Type:URO Office Visit [facility] evalchtcqs note* Diagnosis Onset Date Resolution Status Carotid bruit acuteHypertensionacuteOsteoporosisacutePost herpetic neuralgiaacuteRetinopathy acute [facility] Work Phone: Evaluation noteNo assessment information available [facility] Work Phone: Evaluation note* Diagnosis Encounter for breast and pelvic examination- Primary Screening for osteoporosis Special screening for osteoporosis Standardized adult depression screening tool completed documented [facility]* Diagnosis Onset Date Resolution Status Admit Date Hypertension acuteSeptember 2024 9:46am [facility] Work Phone: Hospital course Narrative No data available for this section [facility] Discharge instructions No data available for this section [facility] Instructions* Attachments The following attachments cannot be sent through Care Everywhere. * Calcium and vitamin D for bone health (Greek) documented in this [facility]Pro[facility] SystemProgress note No data available for this section [facility] reason for referral (narrative)No reason for referral information available[facility] Work Phone: Summary Purpose Family History No Family History Records Found Relationship Condition Age at Onset Recorded Date/T emily brother Unknown fatherHeart diseaseUnknownDeceasedUnknownNot SpecifiedDeceasedUnknownMalignant neoplasmUnknownHistory of ovarian cancerUnknownsisterMalignant neoplasmUnknown Relationship Condition Age at Onset Recorded Date/T emily brother Unknown fatherHeart diseaseUnknownDeceasedUnknownmotherDeceasedUnknownMalignant neoplasm UnknownHistory of ovarian cancerUnknownsisterMalignant neoplasmUnknown Advance Directives No Advanced Directives Records Found [...] section and content) DATE CREATED AUTHOR 03/03/2023 [facility] DATE CREATED AUTHOR AUTHOR'S ORGANIZ ATION 06/05/2024 [facility] DATE CREATED AUTHOR AUTHOR'S ORGANIZ ATION 09/03/2024 [facility] DATE CREATED AUTHOR AUTHOR'S ORGANIZ ATION 09/05/2024 [facility] DATE CREATED AUTHOR AUTHOR'S ORGANIZ ATION 09/12/2024 [facility] DATE CREATED AUTHOR AUTHOR'S ORGANIZ ATION 11/25/2024 [facility] DATE CREATED AUTHOR AUTHOR'S ORGANIZ ATION 12/20/2024 [facility] DATE CREATED AUTHOR AUTHOR'S ORGANIZ ATION 12/21/2024 [facility] DATE CREATED AUTHOR AUTHOR'S ORGANIZ ATION 12/23/2024 [facility] DATE CREATED AUTHOR AUTHOR'S ORGANIZ ATION 03/14/2025 [facility] DATE CREATED AUTHOR AUTHOR'S ORGANIZ ATION 07/22/2025 [facility] DATE CREATED AUTHOR AUTHOR'S ORGANIZ ATION 07/25/2025 [facility] DATE CREATED AUTHOR AUTHOR'S ORGANIZ ATION 07/30/2025 [facility] Care Teams (unrecognized sec tion and content) [...] Start: December 14, 2024 End: December 14, 2024Team MemberRelationshipSpecialtyStart DateEnd Date Tess Moore MD [address] [place] [address] PCP - GeneralFamily Btuikgei08/9/19 Team Status: Inactive Member Role Status Dates Tess Moore MD Primary Care Provider Active Start: June 30, 2025 End: June 30, 2025Marricardo Moore MDAttending ProviderActiveStart: June 30, 2025 End: June 30, 2025 [...] section No data available for this section Reason for Visit (unrecogniz ed section and content) ReasonCommentsGynecologic Exam FOR RECORDS PERTAINING TO PATIENTS WHO [...] BE BASED ON THE PRIMARY CLINICAL RECORDS. [facility]. provides no warranty or guarantee of the accuracy or completeness of information in this document.
--- NOTE | 2025-09-20 07:02 | MM_ITS ---
Patient Name: ANTOINE MTZ MR#: [id number] : 1955 Exam Date: 09/20/2025 Ordering Doctor: DR YANIRA MOORE M.D. RADIOLOGY REPORT PROCEDURE: MM TOMOSYNTHESIS SCREENING BI COMPARISON: MM TOMOSYNTHESIS SCREENING BI, 09/06/2024. MM TOMOSYNTHESIS SCREENING BI, 09/01/2023. MG MAMM SCREEN 3D JENNY CAD, 08/25/2022. MG MAMM JENNY SCRN W CAD DIG, 05/05/2015. INDICATIONS: Screening Calculator Name NCI Breast Cancer Risk Assessment Tool 5 Year Breast Cancer Risk 2.40% Lifetime Breast Cancer Risk 6.50% Personal Breast Cancer No Personal Ovarian Cancer No Treatments None Family Cancers Sister with breast cancer at age 38; Mother with ovarian cancer at age ~75. LOCATION: [facility] BREAST COMPOSITION: There are scattered areas of fibroglandular density. FINDINGS: RIGHT BREAST: No significant suspicious finding. There is a biopsy clip right. Benign-appearing calcifications are present. LEFT BREAST: No significant suspicious finding. Benign-appearing calcifications are redemonstrated. DIAGNOSTIC CATEGORY 2--BENIGN FINDING. NO CHANGE FROM COMPARISON. RECOMMENDATIONS: ROUTINE MAMMOGRAM AND CLINICAL EVALUATION IN 12 MONTHS. Dictated by: Miguel Garcia MD on 09/20/2025 at 10:44 Approved by: Miguel Garcia MD on 09/20/2025 at 10:47
== END 2025-09-20 06:56 | disposition home or self-care (01) ==
LOC: MAMMO 06:55
PROVIDERS: PCP Family Medicine; Visit Provider Family Medicine
DX: Z12.31 Encounter for screening mammogram for malignant neoplasm of breast (principal); Z80.3 Family history of malignant neoplasm of breast; Z80.41 Family history of malignant neoplasm of ovary
CPT/HCPCS: 77063; 77067